=== PATIENT | female | born 1935 | race Two or more races ===

== ENCOUNTER 2016-12-21 18:15 | Emergency (ER) | payer OTHER ==
[~2016-12-21] VITALS: Ht 167.6 cm; Wt 77.1 kg
--- NOTE | 2016-12-21 18:35 | NUR ---
[id number] FROM HOME: GLF, NEAR SYNCOPE PER PATIENT. LEFT HIP INJURY. PATIENT A/OX 4. BREATHING EVEN AND UNLABORED. NO SOB. VITALS STABLE. SAFETY AND COMFORT MEASURES IN PLACE. AWAITING MD ORDERS.
[2016-12-21 18:47] LABS: BASOPHILS # (AUTO) 0.2 /CMM (0.0-0.2); BASOPHILS % (AUTO) 0.8 % (0.0-2.0); EOSINOPHILS # (AUTO) 0.1 /CMM (0.0-0.7); EOSINOPHILS % (AUTO) 0.5 % (0.0-6.0); HEMATOCRIT 41 % (33-45); HEMOGLOBIN 13.8 g/dL (11.5-14.8); LYMPHOCYTES # (AUTO) 3.4 /CMM (0.8-4.8); LYMPHOCYTES % (AUTO) 11.7 % (20.0-44.0); MEAN CORPUSCULAR HEMOGLOBIN 30 PG (26.0-33.0); MEAN CORPUSCULAR HGB CONC 33 g/dl (31.0-36.0); MEAN CORPUSCULAR VOLUME 88 fL (82-100); MONOCYTES # (AUTO) 1.7 /CMM (0.1-1.30); MONOCYTES % (AUTO) 5.8 % (2.0-12.0); NEUTROPHILS # (AUTO) 23.6 /CMM (1.8-8.9); NEUTROPHILS % (AUTO) 81.2 % (43.0-81.0); PLATELET COUNT (AUTO) 398 /CMM (150-450); RDW COEFFICIENT OF VARIATION 13.3 (11.5-15.0); RED BLOOD CELL COUNT(AUTO) 4.69 MIL/uL (4.0-5.2)
[2016-12-21] MEDS ORDERED: ONDANSETRON HCL/PF 4 MG/2 ML VIAL ONE ×2 (18:56→21:58)
[2016-12-21] MEDS ORDERED: MORPHINE SULFATE INJ 4 MG/ML DISP.SYRIN ONE ×4 (18:56→21:58)
[2016-12-21] MEDS ORDERED: MORPHINE SULFATE INJ 2 MG/ML DISP.SYRIN IV ONE ×4 (19:00→22:00)
[2016-12-21] MEDS ORDERED: ONDANSETRON HCL/PF - ER 4 MG/2 ML VIAL IV ONE ×2 (19:00→22:00)
--- NOTE | 2016-12-21 19:02 | NUR ---
PATIENT MEDICATED PER MD ORDERS.
[2016-12-21 19:03] LABS: INR 0.91 (0.87-1.13); PROTHROMBIN TIME 9.5 SECS (9.5-12.7)
[2016-12-21 19:05] LABS: ALANINE AMINOTRANSFERASE 24 U/L (12-78); ALBUMIN 3.9 g/dL (3.4-5.0); ALKALINE PHOSPHATASE 77 U/L (46-116); ASPARTATE AMINOTRANSFERASE 17 U/L (15-37); BILIRUBIN,DIRECT 0.1 mg/dL (0.0-0.2); BILIRUBIN,TOTAL 0.3 mg/dL (0.2-1.0); CALCIUM, SERUM 8.8 mg/dL (8.5-10.1); CARBON DIOXIDE 30 mmol/L (21-32); CHLORIDE 91 mmol/L (98-107); GLUCOSE 143 mg/dL (74-106); POTASSIUM 3.1 mmol/L (3.5-5.1); SODIUM SERUM 130 mmol/L (136-145); TOTAL PROTEIN, SERUM 6.8 g/dL (6.4-8.2); UREA NITROGEN, BLOOD 15 mg/dL (7-18)
[2016-12-21 19:06] LABS: TROPONIN I < 0.017 ng/mL (0.00-0.056)
--- NOTE | 2016-12-21 19:37 | NUR ---
SECOND DOSE OF MORPHINE ADMINISTERED PRIOR TO XRAYS.
--- NOTE | 2016-12-21 19:37 | NUR ---
REPORT GIVEN TO JANICE YBARRA FOR KULDEEP.
--- NOTE | 2016-12-21 20:12 | NUR ---
RADIOLOGY AT BED SIDE FOR X RAY
[2016-12-21] MEDS ORDERED: IV NS 0.9% 1,000 ML BAG IV ONE (20:30)
--- NOTE | 2016-12-21 20:35 | NUR ---
CALLED [facility] SPOKE WITH CALOS, EXPECTING A CALL BACK FROM A [facility]
--- NOTE | 2016-12-21 20:43 | NUR ---
MEDICATED PT ORDERED.
--- NOTE | 2016-12-21 20:48 | NUR ---
[place] DR PELAYO CALLED , ON THE PHONE WITH DR HUFF.
--- NOTE | 2016-12-21 21:25 | NUR ---
[facility] CALLED WITH TRASNPORTATION INFO. PATIENT WILL BE TRANSPORTED TO [facility]. ACCEPTING DR PULIDO. NUMBER TO GIVE REPORT ETA [phone] ALS
--- NOTE | 2016-12-21 21:36 | NUR ---
REPORT GIVEN TO MAGDALENA YBARRA
[2016-12-21 21:43] VITALS: BP 180/88
--- NOTE | 2016-12-21 22:35 | NUR ---
REPORT GIVEN TO EMT FOR TRANSPORT
== END 2016-12-21 22:38 | disposition short-term general hospital (02) ==
LOC: ER 18:18
DX: S72.002A Fracture of unspecified part of neck of left femur, initial encounter for closed fracture (principal); R55 Syncope and collapse; D72.829 Elevated white blood cell count, unspecified; I10 Essential (primary) hypertension; E78.5 Hyperlipidemia, unspecified; J44.9 Chronic obstructive pulmonary disease, unspecified; F32.9 Major depressive disorder, single episode, unspecified; Z98.890 Other specified postprocedural states; Z88.2 Allergy status to sulfonamides; W18.39XA Other fall on same level, initial encounter; Y93.89 Activity, other specified; Y92.89 Other specified places as the place of occurrence of the external cause; Y99.8 Other external cause status
CPT/HCPCS: 36415; 71010; 73503; 80048; 80076; 84484; 85025; 85730; 86850; 93005; 96361; 96374; 96375; 96376; 99285; A4606; J2270 ×4; J2405 ×4; J7030; 73502; Z7610

== ENCOUNTER 2020-03-27 10:00 | Inpatient (IN) | payer MEDICARE, OTHER ==
[~2020-03-27] VITALS: Ht 165.1 cm; Wt 76.7 kg
--- NOTE | 2020-03-27 10:02 | NUR ---
[id number] FROM HOME FOR WORSENING SOB, WEAKNESS. ON ALBUTEROL BANQUET MANAGER. BG 167 BANQUET MANAGER. TO ER BED 8, HOOKED TO MILL HAND, BP CUFF ANF POX. PATIENT NOTED ON ATRIL FIBRILLATION. CHANGED TO HOSP GOWN. NOTED LH 20G IV PERIPHERAL LINE. DR MORRIS AT BEDSIDE
[2020-03-27] MEDS ORDERED: FUROSEMIDE 40 MG/4 ML VIAL ONE (10:15)
[2020-03-27] MEDS ORDERED: FUROSEMIDE 40 MG/4 ML VIAL IV ONE (10:30)
[2020-03-27 10:35] LABS: BASOPHILS # (AUTO) 0.2 /CMM (0.0-0.2); BASOPHILS % (AUTO) 0.7 % (0.0-2.0); HEMATOCRIT 32 % (33-45); HEMOGLOBIN 9.9 g/dL (11.5-14.8); LYMPHOCYTES # (AUTO) 8.4 /CMM (0.8-4.8); LYMPHOCYTES % (AUTO) 35.5 % (20.0-44.0); MEAN CORPUSCULAR HGB CONC 31 g/dl (31.0-36.0); MEAN CORPUSCULAR VOLUME 85 fL (82-100); MONOCYTES # (AUTO) 1.3 /CMM (0.1-1.30); MONOCYTES % (AUTO) 5.3 % (2.0-12.0); NEUTROPHILS # (AUTO) 13.8 /CMM (1.8-8.9); NEUTROPHILS % (AUTO) 58.5 % (43.0-81.0); PLATELET COUNT (AUTO) 677 /CMM (150-450); RED BLOOD CELL COUNT(AUTO) 3.78 MIL/uL (4.0-5.2); WHITE BLOOD COUNT (AUTO) 23.7 K/uL (4.3-11.0)
--- NOTE | 2020-03-27 10:40 | NUR ---
rapid and pcr covid swab done and sent to lab
--- NOTE | 2020-03-27 10:45 | NUR ---
MOVE SHEET SUBMITTED.
[2020-03-27 11:05] LABS: BILIRUBIN,DIRECT 0.2 mg/dL (0.0-0.2); BILIRUBIN,TOTAL 0.5 mg/dL (0.2-1.0); CALCIUM, SERUM 9.2 mg/dL (8.5-10.1); CREATININE 1.2 mg/dL (0.6-1.3); POTASSIUM 4.6 mmol/L (3.5-5.1); TOTAL PROTEIN, SERUM 6.8 g/dL (6.4-8.2)
[2020-03-27] MEDS ORDERED: MONT10TA22 PO (11:23)
[2020-03-27] MEDS ORDERED: FLUT1DIS5 IH (11:23)
[2020-03-27] MEDS ORDERED: POTA20TA83 PO (11:23)
[2020-03-27] MEDS ORDERED: FURO-144 PO (11:23)
[2020-03-27] MEDS ORDERED: LORA-259 PO (11:23)
[2020-03-27] MEDS ORDERED: LEVO112T39 PO (11:23)
[2020-03-27] MEDS ORDERED: DILT-32 PO (11:23)
[2020-03-27] MEDS ORDERED: ATOR10TA PO (11:23)
[2020-03-27] MEDS ORDERED: IPRA3AMP23 IH (11:23)
[2020-03-27] MEDS ORDERED: DABI110C PO (11:23)
--- NOTE | 2020-03-27 11:41 | NUR ---
CALL FROM LAB FOR NEGATIVE RAPID COVID.
--- NOTE | 2020-03-27 12:10 | NUR ---
CALLED [facility]. PER DIRECTOR CASE PATIENT IS CURRENTLY NOT AN ACTIVE MEMBER.
--- NOTE | 2020-03-27 12:23 | NUR ---
[facility] CALLED CLOUD PHYSICIST PAGED.
[2020-03-27] MEDS ORDERED: DILTIAZEM HCL 25 MG IV ONE (12:57)
[2020-03-27] MEDS ORDERED: DABIGATRAN ETEXILATE MESYLATE 150 MG CAPSULE PO SCH (13:00)
[2020-03-27] MEDS ORDERED: DILTIAZEM HCL 50 MG IV IV ONE (13:00)
[2020-03-27] MEDS ORDERED: ACETAMINOPHEN 325 MG TABLET PO PRN (13:30)
[2020-03-27] MEDS ORDERED: Z GUARD REMEDY 2 OZ OINT TP PRN (13:30)
[2020-03-27] MEDS ORDERED: ONDANSETRON HCL/PF 4 MG/2 ML VIAL IVP PRN (13:30)
[2020-03-27] MEDS ORDERED: ZOLPIDEM TARTRATE 5 MG TABLET PO PRN (13:30)
--- NOTE | 2020-03-27 14:27 | NUR ---
[facility] BED 118-1
--- NOTE | 2020-03-27 14:33 | NUR ---
REPORT GIVEN TO ALEXANDRO YBARRA OF [facility]
[2020-03-27] MEDS ORDERED: DILTIAZEM HCL CD 240 MG PO SCH (14:45)
[2020-03-27] MEDS ORDERED: Medication Not On Formulary EA (Ipratropium/Albuterol Sulfate (Duoneb 2.5-0.5 Mg/3 Ml So IH PRN (15:00)
--- NOTE | 2020-03-27 15:00 | NUR ---
RN NOTES PATIENT REPORT RECEIVED FROM EVELIA HAYDEN RN, BEDSIDE ENDORSEMENT DONE.
[2020-03-27] MEDS ORDERED: ALBUTEROL FS 2.5 MG/3 ML VIAL.NEB NEB PRN (15:30)
[2020-03-27] MEDS ORDERED: IPRATROPIUM NEB FS 0.5 MG/2.5 ML AMPUL.NEB NEB PRN (15:30)
[2020-03-27 15:45] VITALS: BP 118/67
--- NOTE | 2020-03-27 16:00 | NUR ---
RN ADMITTING NOTES ADMITTED PATIENT FROM ER W/ CC OF WORSENING SOB AND WEAKNESS, DX OF AFIB W/ RVR. PATIENT WAS BROUGHT VIA GURNEY, SLEEPING, BUT ABLE TO BE AWAKENED. ON O2 AT 5-6LPM VIA NC, SATURATING BETWEEN 95-99%, NO RESPIRATORY DISTRESS AT THE MOMENT. IV LINE ON LEFT HAND #20 INTACT AND PATENT. SKIN ASSESSMENT DONE AND PHOTOS TAKEN. SWAB SPECIMEN OBTAINED FOR MRSA SURVEILLANCE; CABALLERO CATHETER FR16 INSERTED PER MD ORDER, ABLE TO DRAIN URINE OF YELLOW COLOR W/O SEDIMENTS, OUTPUT OF 350CC OBTAINED. URINE SAMPLE OBTAINED AND SENT TO LAB. PATIENT CURRENTLY SLEEPING AT THIS TIME. SAFETY PRECAUTIONS IN PLACE: BED LOCKED AND ON LOWEST POSITION, SR UP X3, CALL LIGHT DEMONSTRATED TO PATIENT FOR USE IN CASE IN NEED OF ASSISTANCE, PLACED W/IN REACH. WILL CONTINUE TO MONITOR.
[2020-03-27] MEDS: ATORVASTATIN 10 MG TABLET PO SCH (17:55)
[2020-03-27] MEDS: FUROSEMIDE 40 MG/4 ML VIAL IV SCH ×2 (17:55→23:25)
[2020-03-27] MEDS: MONTELUKAST SODIUM (10MG) 10 MG TABLET PO SCH (17:55)
[2020-03-27 18:59] LABS: BILIRUBIN,URINE NEGATIVE (NEGATIVE); COLOR,URINE YELLOW (YELLOW); LEUKOCYTE ESTERASE ,URINE NEGATIVE (NEGATIVE); NITRITE, URINE NEGATIVE (NEGATIVE); PROTEIN,URINE 100 mg/dl (NEGATIVE); UGLUCOSE NEGATIVE (NEGATIVE); UROBILINOGEN,URINE 0.2 EU/dL (0.2)
--- NOTE | 2020-03-27 19:00 | NUR ---
RN OPENING NOTE RECEIVED PATIENT IN BED RESTING EYE CLOSED SLEEPING ON 5L OXYGEN VIA NASAL CANNULA O2:94-96% ON TASHA MONITORING,HR 120 A-FIB,IV SITE IS ON LEFT HAND INTACT PATENT, CABALLERO CATHETER IN PLACE URINE DRAINING YELLOW AND CLEAR,BED ALARM IS ON,BED IN LOW POSITON AND LOCKED,SAFETY MEASURE IMPLEMENT CONTINUE TO MONITOR
--- NOTE | 2020-03-27 19:05 | NUR ---
RN NOTES PATIENT CURRENTLY SLEEPING; CABALLERO CATH STILL INTACT AND DRAINING URINE OF YELLOW COLORATION. NO RESPIRATORY DISTRESS NOTED. SAFETY PRECAUTIONS MAINTAINED. WILL ENDORSE TO LATEX RIBBON MACHINE OPERATOR RN FOR KULDEEP.
[2020-03-27 19:45] LABS: BACTERIA,URINE RARE /HPF (None Seen); HYALINE CASTS, URINE Few /LPF (None Seen); RBC,URINE 0-2 /HPF (0-2); SQUAMOUS EPITHELIAL CELL,UR 0-2 /HPF (None Seen); WBC,URINE 0-2 /HPF (0-3)
[2020-03-27 20:00] VITALS: BP 147/84
[2020-03-27] MEDS ORDERED: FLUTICASONE/VILANTEROL 1 EACH BLST.W.DEV IH SCH (21:00)
[2020-03-27] MEDS ORDERED: ENOXAPARIN SODIUM 40 MG/0.4 ML DISP.SYRIN SQ SCH (21:00)
[2020-03-28] VITALS (43 sets, daily range): BP systolic 88–157; BP diastolic 37–99
--- NOTE | 2020-03-28 00:45 | NUR ---
0045 FAX MACHINE REPAIRER DALTON MADE AWARE OF PATIENT'S UNCONTROLLED A-FIB RATE 130S WITH ORDER TO GIVE CARDIZEM 10MG SLOW IVP ONCE. ORDER NOTED AND CARRIED OUT.
[2020-03-28] MEDS ORDERED: DILTIAZEM HCL 25 MG IV IV ONE (01:30)
--- NOTE | 2020-03-28 05:00 | NUR ---
RN NOTE NOTICED PATIENT DESATURATION TO 77% ON 6L NASAL CANNULA, CHANGED TO NON-REBREATHER MASK ON 15L CALLED ASSISTANT PROPERTY MANAGER DMITERY MADE AWARE,WITH NEW ORDER TRY TO TITRATE OXYGEN,NOTED AND CARRIED OUT.
[2020-03-28] MEDS: FUROSEMIDE 40 MG/4 ML VIAL IV SCH (05:02)
--- NOTE | 2020-03-28 06:22 | NUR ---
RN NOTE NOTICED PATIENT HR IS 150 AND ABOVE CALLED LABORATORY TECHNOLOGIST DMITERY WITH NO NEW ORDER AT THIS TIME.
[2020-03-28 06:38] LABS: BASOPHILS # (AUTO) 0.1 /CMM (0.0-0.2); BASOPHILS % (AUTO) 0.3 % (0.0-2.0); EOSINOPHILS % (AUTO) 0.1 % (0.0-6.0); HEMATOCRIT 30 % (33-45); HEMOGLOBIN 9.4 g/dL (11.5-14.8); LYMPHOCYTES # (AUTO) 7.8 /CMM (0.8-4.8); LYMPHOCYTES % (AUTO) 37.4 % (20.0-44.0); MEAN CORPUSCULAR HGB CONC 31 g/dl (31.0-36.0); MEAN CORPUSCULAR VOLUME 84 fL (82-100); MONOCYTES # (AUTO) 1.4 /CMM (0.1-1.30); MONOCYTES % (AUTO) 6.7 % (2.0-12.0); NEUTROPHILS # (AUTO) 11.6 /CMM (1.8-8.9); NEUTROPHILS % (AUTO) 55.5 % (43.0-81.0); PLATELET COUNT (AUTO) 606 /CMM (150-450); RED BLOOD CELL COUNT(AUTO) 3.62 MIL/uL (4.0-5.2); WHITE BLOOD COUNT (AUTO) 20.9 K/uL (4.3-11.0)
--- NOTE | 2020-03-28 06:48 | NUR ---
RN CLOSING NOTE PATIENT REMAINS ON ALERT ORIENTED X2 VERBALLY RESPONSIVE ON NON REBREATHER MASK 15L OXYGEN O2:99% HR ABOVE 140 A-FIB NON CONTROL ALL DUE MEDS GIVEN MD ORDERED,IV SITE IS ON RIGHT HAND INTACT PATENT,PATIENT HAS MIDLINE ORDER FOR MORNING SHIFT,KEPT CLEAN AND DRY ALL THE TIME,BED IN LOW POSITION AND LOCKED,SAFETY MEASURE IMPLEMENTED,ENDORSE NEXT COMING SHIFT FOR CONTINUATION OF CARE.
[2020-03-28 07:19] LABS: CALCIUM, SERUM 9.4 mg/dL (8.5-10.1); CREATININE 1.3 mg/dL (0.6-1.3); PHOSPHORUS 5.5 mg/dL (2.5-4.9); POTASSIUM 5.1 mmol/L (3.5-5.1)
--- NOTE | 2020-03-28 07:27 | NUR ---
montlr shows uncontrolled a fib 145-150 patient has a NRB mask 15l with with 98% pulse ox julien PORTILLO was notified and stat chest x ray and ABG orders obtained ABG results given to Trini and as well and orders obtained and carried out
--- NOTE | 2020-03-28 07:35 | NUR ---
SECOND CUTTER OPENING NOTES RECEIVED PATIENT IN BED, AWAKE, A/O X1 WITH CONFUSION. PATIENT TRYING TO GET OUT OF BED AND REMOVE MASK ON; HOWEVER ON SOFT WRIST RESTRAINS. TELE MONITOR WITH A READING OF A-FIB NON CONTROL; MD AWARE. R HAND IV ACCESS PRESENT. NO S/S OF PAIN SUCH FACIAL GRIMACING OR MOANING. SAFETY PRECAUTIONS IN PLACE; BED IN LOW POSITION AND LOCKED, RAILS UP X3, CALL LIGHT WITHIN REACH. WILL CONTINUE TO MONITOR PATIENT.
--- NOTE | 2020-03-28 08:30 | NUR ---
LOAN ASSOCIATE NOTES PATIENT DESATURATING AND RT HERE TO CHECK ON PATIENT. PATIENT AWAKE BUT HAS SOB. ABG ORDERED.
[2020-03-28 08:38] LABS: ABG BASE EXCESS 8.7 mmol/L; ABG OXYGEN SATURATION 98.8 % (92.0-98.5); ABG PCO2 97.9 mmHg (35.0-45.0); ABG PH 7.218 (7.350-7.450); ABG PO2 147.1 mmHg (75.0-100.0); COHb 0.3 % (0.5-1.5); MetHb 0.3 % (0.0-1.5); O2Hb 98.2 % (94.0-97.0); SITE, ABG Right Radial; VENT MODE, BG NON REBREATHER
[2020-03-28] MEDS ORDERED: DILTIAZEM HCL CD 120 MG PO SCH (09:00)
[2020-03-28] MEDS ORDERED: DILTIAZEM HCL CD 240 MG PO SCH (09:00)
[2020-03-28] MEDS ORDERED: BUMETANIDE INJ 8 MG in IV NS 0.9% 48 ML IV ONE (09:00)
[2020-03-28] MEDS ORDERED: POTASSIUM CHLORIDE 20 MEQ TAB.PRT.SR PO SCH (09:00)
[2020-03-28] MEDS: LEVOTHYROXINE SODIUM 112 MCG TABLET PO SCH (09:11)
--- NOTE | 2020-03-28 09:30 | NUR ---
MANAGER MARKET INTELLIGENCE NOTES PER RT ABG DID NOT LOOK GOOD. DR ZENG ASSESSED PATIENT AND OK TO TRANSFER TO ICU. WAITING FOR THE BED. PATIENT ON 10 L NOW PER REGULAR MASK.
--- NOTE | 2020-03-28 09:49 | NUR ---
ASSISTANT CHIEF TRAIN DISPATCHER NOTES PATIENT TRANSFERED TO ICU CARE. REPORT GIVEN TO ICU NURSETOMMY
[2020-03-28] MEDS ORDERED: IPRATROPIUM BROMIDE 14 GM INHALER (or 12.9 GM) IH SCH (10:00)
[2020-03-28] MEDS ORDERED: ENOXAPARIN SODIUM 80 MG/0.8 ML DISP.SYRIN SQ SCH (10:00)
[2020-03-28] MEDS ORDERED: DABIGATRAN ETEXILATE MESYLATE 75 MG CAPSULE PO SCH (10:00)
--- NOTE | 2020-03-28 10:11 | NUR ---
jas blue called and intubated by Dr.Tim stevens and transferred to ICU Room 255 per bed accompanied by resp and primary nurse all reports given to Navid COLLISION TECHNICIAN by primary nurse TOMMY
--- NOTE | 2020-03-28 10:45 | NUR ---
RACK CLEANER NOTE PT RECEIVED FROM [facility], TOMMY YBARRA GAVE REPORT, FOLLOWING CODE BLUE (1005) AND SUCCESSFUL INTUBATION. WILL BEGIN PT ON DIPRIVAN DRIP PER PROTOCOL, SOFT BILATERAL WRIST RESTRAINTS APPLIED FOR PT SAFETY. PT IN A-FIB WITH PVCs HR IN 140s. PT HAS RT HAND IV ACCESS THAT IS NOT INTACT, WILL D/C AND START NEW IV ACCESS SHORTLY. PT CABALLERO CATH DRAINING TO GRAVITY, HEMATURIA NOTED. ALL PT SAFETY PRECAUTIONS IN PLACE. WILL CONTINUE TO MONITOR.
--- NOTE | 2020-03-28 10:50 | NUR ---
AWS SOLUTION ARCHITECT OVERFLOW PATIENT IN BED, KRISHAN NAIR IN THE ROOM ASSESSING THE PATIENT, CALLED CODE BLUE AT 1005 BECAUSE SATURATION WAS DROPPING AND FELT NO PULSE. RN WENT TO THE ROOM, COMPRESSIONS STARTED, DR EPSTEIN ARRIVED, RT PRESENT, PHARMACY PRESENT, MULTIPLE STAFF NURSES PRESENT AND SWITCHING OUT COMPRESSIONS, NO MEDICATIONS GIVEN, PATIENT INTUBATED. O2 SAT IS 100%. MORE DETAILED CODE INFORMATION DOCUMENTED IN THE CODE SHEET DURING THE CODE. PATIENT STABILIZED AND PREPARED TO BE TRANSFERRED TO ICU. PATIENT TRANSFERRED WITH RT, ICU CHARGE NURSE, STAFF NURSE SHAILESH, AND MAIN STAFF NURSE ARY. TRANSFERRED IN BED WHILE RT BAGS THE PATIENT AND IS ON CONTINUOUS TELE MONITOR. ONCE IN ICU, PATIENT CONNECTED TO CONTINUOUS MONITORING, IS BACK ON VENTILATOR, O2 SAT 100%, NO S/S OF DISTRESS. REPORT GIVEN THE RN ISSA JUSTIN. Addendum: 03/28/20 at 1438 by ARY OROSCO RN DR SARA THOMAS INTUBATED THE PATIENT, NOT LUCIAN.
[2020-03-28] MEDS ORDERED: DABIGATRAN ETEXILATE MESYLATE 150 MG CAPSULE PO SCH (11:00)
[2020-03-28] MEDS ORDERED: ALBUTEROL FS 2.5 MG/3 ML VIAL.NEB NEB PRN (11:00)
[2020-03-28] MEDS ORDERED: FLUTICASONE/VILANTEROL 1 EACH BLST.W.DEV IH SCH (11:00)
[2020-03-28] MEDS ORDERED: PROPOFOL 10MG/ML 50ML 50 ML IV PRN (11:00)
[2020-03-28] MEDS: ENOXAPARIN SODIUM 80 MG/0.8 ML DISP.SYRIN SQ SCH ×2 (11:30→14:18)
[2020-03-28] MEDS: PROPOFOL 10MG/ML 50ML 50 ML IV PRN ×9 (11:30→22:42)
--- NOTE | 2020-03-28 11:50 | NUR ---
LOAD BUILDER OVERFLOW SOON, THE CHARGE NURSE HAD THE PATIENT NURSE CASEYHUY ENDORSE CARE NOW TO ARY Fish DIFFERENT RN, PATIENT IS IN BED RESTING, RESPIRATORY THERAPIST IN THE ROOM SWITCHING HER OXYGEN DELIVERY TO HIGHLOW 40L 35% O2. PATIENT SATURATION IS 90%. PLAN IS TO TRANSFER THE PATIENT TO ICU. COLLECTING PATIENT CHART AND MEDICATION NOW TO TRANSFER HER SOON POSSIBLE. Addendum: 03/28/20 at 1437 by ARY OROSCO RN 0950, NOT 1150.
[2020-03-28] MEDS ORDERED: PHENYLEPHRINE 50 MG in IV NS 0.9% 245 ML IV PRN (12:00)
[2020-03-28] MEDS ORDERED: DIGOXIN INJ 0.5 MG/2 ML AMPUL IV SCH (12:00)
[2020-03-28] MEDS: methylPREDNISolone SOD SUCC 40 MG/ML VIAL IV SCH ×2 (12:04→17:53)
[2020-03-28 12:55] LABS: ABG BASE EXCESS 9.8 mmol/L; ABG PCO2 31.8 mmHg (35.0-45.0); ABG PH 7.615 (7.350-7.450); ABG PO2 585.6 mmHg (75.0-100.0); AaDO2 95.6 mmHg; COHb 0.3 % (0.5-1.5); O2Hb 99.7 % (94.0-97.0); SITE, ABG Left Radial; VENT MODE, BG ac 24 500+5 100%
[2020-03-28] MEDS: AMIODARONE 150 MG in IV D5W 100 ML IV ONE ×2 (13:26→17:32)
[2020-03-28] MEDS: IPRATROPIUM NEB FS 0.5 MG/2.5 ML AMPUL.NEB NEB SCH ×2 (13:30→19:40)
[2020-03-28] MEDS: AMIODARONE 450 MG in IV D5W 250 ML IV PRN ×2 (13:32→21:56)
[2020-03-28 13:59] LABS: BASOPHILS # (AUTO) 0.1 /CMM (0.0-0.2); BASOPHILS % (AUTO) 0.4 % (0.0-2.0); HEMATOCRIT 29 % (33-45); LYMPHOCYTES # (AUTO) 5.7 /CMM (0.8-4.8); LYMPHOCYTES % (AUTO) 23.6 % (20.0-44.0); MEAN CORPUSCULAR HGB CONC 31 g/dl (31.0-36.0); MEAN CORPUSCULAR VOLUME 84 fL (82-100); MONOCYTES # (AUTO) 1.5 /CMM (0.1-1.30); MONOCYTES % (AUTO) 6.4 % (2.0-12.0); NEUTROPHILS # (AUTO) 16.7 /CMM (1.8-8.9); NEUTROPHILS % (AUTO) 69.6 % (43.0-81.0); PLATELET COUNT (AUTO) 514 /CMM (150-450); RED BLOOD CELL COUNT(AUTO) 3.47 MIL/uL (4.0-5.2)
[2020-03-28 14:17] LABS: ALANINE AMINOTRANSFERASE 58 U/L (12-78); ALBUMIN 2.7 g/dL (3.4-5.0); ALKALINE PHOSPHATASE 99 U/L (46-116); ASPARTATE AMINOTRANSFERASE 64 U/L (15-37); BILIRUBIN,TOTAL 0.6 mg/dL (0.2-1.0); CALCIUM, SERUM 9.3 mg/dL (8.5-10.1); CARBON DIOXIDE 36 mmol/L (21-32); CHLORIDE 92 mmol/L (98-107); CREATININE 1.4 mg/dL (0.6-1.3); GLUCOSE 120 mg/dL (74-106); POTASSIUM 5.2 mmol/L (3.5-5.1); SODIUM SERUM 135 mmol/L (136-145); TOTAL PROTEIN, SERUM 5.8 g/dL (6.4-8.2); UREA NITROGEN, BLOOD 27 mg/dL (7-18)
--- NOTE | 2020-03-28 14:21 | NUR ---
RN NOTE PER KRISHAN FOREST PATHOLOGY ASSOCIATE PROFESSOR, OK TO GIVE LOVENOX 80MG. AWARE OF HEMATURIA THAT IS CLEARING, PT IS IN A-FIB
[2020-03-28] MEDS ORDERED: DEXTROSE 50%-WATER 50 ML DISP.SYRIN IV PRN (17:00)
[2020-03-28] MEDS: BLOOD SUGAR DIAGNOSTIC 1 EACH STRIP IN SCH ×2 (17:45→21:08)
[2020-03-28] MEDS: MONTELUKAST SODIUM (10MG) 10 MG TABLET PO SCH (17:53)
[2020-03-28] MEDS: ATORVASTATIN 10 MG TABLET PO SCH (17:53)
[2020-03-28 18:10] LABS: ABG BASE EXCESS 11.4 mmol/L; ABG OXYGEN SATURATION 97.2 % (92.0-98.5); ABG PCO2 37.4 mmHg (35.0-45.0); ABG PH 7.579 (7.350-7.450); ABG PO2 79.7 mmHg (75.0-100.0); AaDO2 234.7 mmHg; COHb 0.4 % (0.5-1.5); MetHb 0.3 % (0.0-1.5); O2Hb 96.5 % (94.0-97.0); SITE, ABG Right Radial; VENT MODE, BG AC 16 450 50% +5
--- NOTE | 2020-03-28 19:00 | NUR ---
ART PSYCHOTHERAPIST CLOSING NOTE PT IN STABLE CONDITION. ON VENT SETTINGS ORDERED, NO SIGNS OF RESP DISTRESS, SPO2 0F 97%. P TIN A-FIB WITH RVR IN THE 100s. PT NEW ACCESS OF IRVIN AND LT WRIST BOTH INFUSING WELL AND ARE PATENT. DIPRIVAN AND AMIODARONE. ALL PT SAFETY PRECAUTIONS IN PLACE. WILL ENDORSE KULDEEP TO ONCOMING NURSE. PT TO TRANSFER TO [facility] TOMORROW
--- NOTE | 2020-03-28 19:30 | NUR ---
LEAN ENGINEER RCD PT DX AFIB, S/P INTUABATION TODAY. AFIB ON MONITOR ON AMIODARONE DRIP CHANGED TO 0.5 MG. ON PROPOFOL AT [address] FOR SAFETY[address] CABALLERO CATH W/HEMATURIA NOTED. OPEN SCABS NOTED ON BUTTOCKS; APPLIED MEPILEX. PT INTUBATED; RENDERED ORAL CARE; MIN SECRETIONS.
[2020-03-28] MEDS ORDERED: ZOLPIDEM TARTRATE 5 MG TABLET PO PRN (22:00)
[2020-03-28 23:59] LABS: ABG BASE EXCESS 12.1 mmol/L; ABG OXYGEN SATURATION 97.9 % (92.0-98.5); ABG PCO2 40.1 mmHg (35.0-45.0); ABG PH 7.563 (7.350-7.450); ABG PO2 95.4 mmHg (75.0-100.0); COHb 0.3 % (0.5-1.5); MetHb 0.1 % (0.0-1.5); O2Hb 97.5 % (94.0-97.0); PEEP,BG 5 cm H2O; SITE, ABG Right Radial
[2020-03-29] VITALS (14 sets, daily range): BP systolic 125–171; BP diastolic 59–111
--- NOTE | 2020-03-29 | NUR ---
ABG DONE. NOTIFIED RN WITH THE RESULT.
[2020-03-29] MEDS: BLOOD SUGAR DIAGNOSTIC 1 EACH STRIP IN SCH ×4 (00:21→12:17)
[2020-03-29] MEDS: IPRATROPIUM NEB FS 0.5 MG/2.5 ML AMPUL.NEB NEB SCH ×2 (01:06→07:58)
[2020-03-29] MEDS: PROPOFOL 10MG/ML 50ML 50 ML IV PRN ×5 (01:26→12:06)
[2020-03-29] MEDS: methylPREDNISolone SOD SUCC 40 MG/ML VIAL IV SCH ×2 (02:09→10:57)
[2020-03-29 04:19] LABS: BASOPHILS # (AUTO) 0.1 /CMM (0.0-0.2); BASOPHILS % (AUTO) 0.5 % (0.0-2.0); EOSINOPHILS % (AUTO) 0.8 % (0.0-6.0); HEMATOCRIT 28 % (33-45); HEMOGLOBIN 9.2 g/dL (11.5-14.8); LYMPHOCYTES # (AUTO) 5.9 /CMM (0.8-4.8); MEAN CORPUSCULAR HGB CONC 33 g/dl (31.0-36.0); MEAN CORPUSCULAR VOLUME 82 fL (82-100); MONOCYTES # (AUTO) 0.6 /CMM (0.1-1.30); MONOCYTES % (AUTO) 2.5 % (2.0-12.0); NEUTROPHILS # (AUTO) 15.8 /CMM (1.8-8.9); NEUTROPHILS % (AUTO) 70.2 % (43.0-81.0); PLATELET COUNT (AUTO) 475 /CMM (150-450); RED BLOOD CELL COUNT(AUTO) 3.43 MIL/uL (4.0-5.2); WHITE BLOOD COUNT (AUTO) 22.5 K/uL (4.3-11.0)
[2020-03-29 04:38] LABS: CALCIUM, SERUM 8.8 mg/dL (8.5-10.1); CARBON DIOXIDE 32 mmol/L (21-32); CHLORIDE 90 mmol/L (98-107); CREATININE 1.5 mg/dL (0.6-1.3); GLUCOSE 128 mg/dL (74-106); PHOSPHORUS 3.8 mg/dL (2.5-4.9); POTASSIUM 4.3 mmol/L (3.5-5.1); SODIUM SERUM 131 mmol/L (136-145); UREA NITROGEN, BLOOD 32 mg/dL (7-18)
--- NOTE | 2020-03-29 07:15 | NUR ---
SANITARIAN PT REMAINED ON DIPRIVAN AT 40 MCG ON AMIODARONE DRIP. ADEQUATE URINE OUTPUT. PLAN TO TRANSFER TO [facility] PER FAMILY REQUEST.
[2020-03-29] MEDS: LEVOTHYROXINE SODIUM 112 MCG TABLET PO SCH (08:01)
--- NOTE | 2020-03-29 08:05 | NUR ---
WOUND CARE CONSULT: REVIEWED CHART, NURSING DOCUMENTATION AND PHOTOS WHICH INDICATE SKIN GROWTHS TO BACK, PRESENT ON ADMISSION. PT BEING TRANSFERRED TO ANOTHER FACILITY AT THIS TIME.
[2020-03-29 09:47] LABS: ABG BASE EXCESS 9.5 mmol/L; ABG OXYGEN SATURATION 96.8 % (92.0-98.5); ABG PCO2 37.8 mmHg (35.0-45.0); ABG PH 7.553 (7.350-7.450); ABG PO2 79.7 mmHg (75.0-100.0); COHb 1.3 % (0.5-1.5); MetHb 0.3 % (0.0-1.5); O2Hb 95.3 % (94.0-97.0); PEEP,BG 5 cm H2O; SITE, ABG Right Radial; VT, ABG 450 mL
--- NOTE | 2020-03-29 09:55 | NUR ---
vent changes below per dr. white: ac 12 vt 400 ml Addendum: 03/29/20 at 0956 by CHELSY HEARN RT Amended: Links added.
[2020-03-29] MEDS ORDERED: DILTIAZEM HCL 30 MG TABLET NG SCH (12:00)
[2020-03-29] MEDS ORDERED: DIGOXIN ELIX UDC 0.25 MG/5 ML UDC GT SCH (13:00)
--- NOTE | 2020-03-29 13:35 | NUR ---
RN NOTE 0715: Received patient sedated. With ETT to vent, tolerated settings. AC 16 450 50 +5. Afib 90-110's on the monitor. On Diprivan @ 40mcg, will titrate as ordered. On Amio drip. 2 PIVs intact. TRAINING DEVELOPMENT DIRECTOR restraints on. Mishra cath intact. 0830: Spoke with Yuriy from [facility], gave ICU bed [id number], informed TAMIE Valles, she will call [facility]. 0900: Son and daughter at bedside, updated re: the transfer. 0945: ABG done, made Dr. Mai aware, with new vent changes noted, AC 12 Vt 400 40%. 1230: Done with Amio drip, administered Cardizem and Dig. 1240: Called [facility], spoke with Allie and report given, . Copied chart and gathered new CD images. 1300: Transferred by EMT via ACLS protocol with CCRN and Kimi READING ASSISTANT to accompany patient. Remained on Diprivan @ 50mcg, given extra bottle of Diprivan to Kimi PORTILLO. READING ASSISTANT informed son and daughter via phone, watch on left wrist still there.
== END 2020-03-29 13:04 | disposition short-term general hospital (02) | DRG 208 ==
LOC: ER 10:09 → TELE1 14:35 → TELE-TD 18:29 → ICU 03-28 09:54
PROVIDERS: ADMIT Nurse Practitioner Acute Care; ATTEND Nurse Practitioner Acute Care
PROC: 5A1945Z Respiratory Ventilation, 24-96 Consecutive Hours (ICD-10-PCS; principal; 2020-03-27)
PROC: 0BH18EZ Insertion of Endotracheal Airway into Trachea, Via Natural or Artificial Opening Endoscopic (ICD-10-PCS; 2020-03-27)
PROC: 5A12012 Performance of Cardiac Output, Single, Manual (ICD-10-PCS; 2020-03-28)
DX: J96.21 Acute and chronic respiratory failure with hypoxia (principal); N17.0 Acute kidney failure with tubular necrosis; I50.33 Acute on chronic diastolic (congestive) heart failure; G93.41 Metabolic encephalopathy; J44.1 Chronic obstructive pulmonary disease with (acute) exacerbation; I13.0 Hypertensive heart and chronic kidney disease with heart failure and stage 1 through stage 4 chronic kidney disease, or unspecified chronic kidney disease; E87.1 Hypo-osmolality and hyponatremia; E87.4 Mixed disorder of acid-base balance; J96.22 Acute and chronic respiratory failure with hypercapnia; I48.91 Unspecified atrial fibrillation; Z87.891 Personal history of nicotine dependence; E78.5 Hyperlipidemia, unspecified; Z86.73 Personal history of transient ischemic attack (TIA), and cerebral infarction without residual deficits; Z86.74 Personal history of sudden cardiac arrest; D72.829 Elevated white blood cell count, unspecified; N18.9 Chronic kidney disease, unspecified; Z20.822 Contact with and (suspected) exposure to COVID-19; Z99.81 Dependence on supplemental oxygen; Z96.649 Presence of unspecified artificial hip joint; Z88.2 Allergy status to sulfonamides
CPT/HCPCS: 31720; 36415; 36600; 71045-TC; 80048-TC; 80053-TC; 80061-TC; 80076-TC; 81001; 82728-TC; 82803-TC; 82962-TC; 83540-TC; 83605-TC; 83735-TC; 83880; 84100-TC; 84443-TC; 84484-TC; 85025-TC; 85378-TC; 85730-TC; 87040-TC; 87081-TC; 87086-TC; 93307-TC; 94002-TC; 94003-TC; 94760-TC; 94799-TC; C9803; G0378; J0282; J1160; J1650; J1940; J2370; J2920; J3490; J7030; J7050; J7060; U0003

== ENCOUNTER 2020-11-27 10:43 | Inpatient (IN) | payer OTHER ==
[~2020-11-27] VITALS: Ht 167.6 cm; Wt 71.2 kg
[~2020-11-27 10:43] MED LIST: ATOR10TA PO; DABI110C PO; DILT-32 PO; FLUT1DIS5 IH; FURO-144 PO; IPRA3AMP23 IH; LEVO112T39 PO; LORA-259 PO; MONT10TA22 PO; POTA20TA83 PO
--- NOTE | 2020-11-27 10:49 | NUR ---
To ER bed 6, [id number], from home, sent by PMD due to SOB, Hx copd, o2 sat at 100% with 2lpm, changed to a gown and attached to monitor
[2020-11-27] MEDS ORDERED: methylPREDNISolone SOD SUCC 125 MG/2ML VIAL ONE (10:55)
[2020-11-27] MEDS ORDERED: methylPREDNISolone SOD SUCC 125 MG/2ML VIAL IV ONE (11:00)
[2020-11-27] MEDS ORDERED: ALBUTEROL FS 2.5 MG/3 ML VIAL.NEB NEB ONE (11:00)
[2020-11-27] MEDS ORDERED: IPRATROPIUM NEB FS 0.5 MG/2.5 ML AMPUL.NEB NEB ONE (11:00)
--- NOTE | 2020-11-27 11:00 | NUR ---
SALINE LOCK ESTABLISHED, BLOOD DRAWN AND PICKED UP BY LAB
[2020-11-27] MEDS ORDERED: IPRATROPIUM NEB FS 0.5 MG/2.5 ML AMPUL.NEB ONE (11:04)
[2020-11-27] MEDS ORDERED: ALBUTEROL FS 2.5 MG/3 ML VIAL.NEB ONE (11:04)
--- NOTE | 2020-11-27 11:10 | NUR ---
RT AT BEDSIDE
--- NOTE | 2020-11-27 11:11 | NUR ---
FAMILY AT BEDSIDE
[2020-11-27 11:13] LABS: BASOPHILS % (AUTO) 0.1 % (0.0-2.0); EOSINOPHILS % (AUTO) 0.1 % (0.0-6.0); HEMATOCRIT 27 % (33-45); HEMOGLOBIN 8.7 g/dL (11.5-14.8); LYMPHOCYTES # (AUTO) 3.4 K/uL (0.8-4.8); LYMPHOCYTES % (AUTO) 10.2 % (20.0-44.0); MEAN CORPUSCULAR HGB CONC 33 g/dl (31.0-36.0); MEAN CORPUSCULAR VOLUME 88 fL (82-100); MONOCYTES # (AUTO) 2.9 K/uL (0.1-1.30); MONOCYTES % (AUTO) 8.6 % (2.0-12.0); NEUTROPHILS # (AUTO) 27.1 K/uL (1.8-8.9); PLATELET COUNT (AUTO) 270 K/uL (150-450); RED BLOOD CELL COUNT(AUTO) 3.02 MIL/uL (4.0-5.2)
[2020-11-27 11:15] LABS: WHITE BLOOD COUNT (AUTO) 33.4 K/uL (4.3-11.0)
--- NOTE | 2020-11-27 11:18 | NUR ---
trade embalmer at bedside
[2020-11-27 11:44] LABS: CALCIUM, SERUM 7.6 mg/dL (8.5-10.1); CARBON DIOXIDE 32 mmol/L (21-32); CHLORIDE 91 mmol/L (98-107); CREATININE 3.5 mg/dL (0.6-1.3); GLUCOSE 156 mg/dL (74-106); POTASSIUM 4.1 mmol/L (3.5-5.1); SODIUM SERUM 128 mmol/L (136-145); UREA NITROGEN, BLOOD 66 mg/dL (7-18)
[2020-11-27] MEDS ORDERED: MENTHOL/CETYLPYRD (CEPACOL) 1 LOZ LOZENGE ONE (11:47)
[2020-11-27] MEDS ORDERED: ASPI-1169 PO (11:57)
[2020-11-27] MEDS ORDERED: TIOT18CA3 IH (11:57)
[2020-11-27] MEDS ORDERED: MELA3TAB41 PO (11:57)
[2020-11-27] MEDS ORDERED: ACET-868 PO (11:57)
[2020-11-27] MEDS ORDERED: ALEN70TA3 PO (11:57)
[2020-11-27] MEDS ORDERED: IRBE150T28 PO (11:57)
[2020-11-27] MEDS ORDERED: DOCU-141 PO (11:57)
[2020-11-27] MEDS ORDERED: BISA10SU11 RC (11:57)
[2020-11-27] MEDS ORDERED: ALBU2.5V38 IH (11:57)
[2020-11-27] MEDS ORDERED: LEVO250T59 PO (11:57)
[2020-11-27] MEDS ORDERED: CHOL100062 PO (11:57)
[2020-11-27] MEDS ORDERED: FOLI0.8T2 PO (11:57)
[2020-11-27] MEDS ORDERED: MENT3.5O TP (11:57)
[2020-11-27] MEDS ORDERED: PANT40TA2 PO (11:57)
[2020-11-27] MEDS ORDERED: POLY17PO4 PO (11:57)
[2020-11-27] MEDS ORDERED: CHLO25TA2 PO (11:57)
[2020-11-27] MEDS ORDERED: AMIO200T5 PO (11:57)
[2020-11-27] MEDS ORDERED: ROSU10TA2 PO (11:57)
[2020-11-27 11:59] LABS: ALANINE AMINOTRANSFERASE 17 U/L (12-78); ALBUMIN 2.3 g/dL (3.4-5.0); ALKALINE PHOSPHATASE 145 U/L (46-116); ASPARTATE AMINOTRANSFERASE 23 U/L (15-37); BILIRUBIN,DIRECT 0.3 mg/dL (0.0-0.2); BILIRUBIN,TOTAL 0.5 mg/dL (0.2-1.0); TOTAL PROTEIN, SERUM 5.8 g/dL (6.4-8.2)
[2020-11-27] MEDS ORDERED: VANCOMYCIN 1 GM in IV D5W 250 ML IV ONE (12:00)
[2020-11-27] MEDS ORDERED: MENTHOL/CETYLPYRD (CEPACOL) 1 LOZ LOZENGE PO ONE (12:00)
[2020-11-27] MEDS ORDERED: CEFEPIME 1 GM in IV D5W 50 ML IV ONE (12:00)
[2020-11-27] MEDS ORDERED: IV NS 0.9% 1,000 ML IV ONE (12:00)
--- NOTE | 2020-11-27 12:21 | NUR ---
PERSONAL RNNAVJOT AT BEDSIDE
--- NOTE | 2020-11-27 12:31 | NUR ---
DR THOMAS AT BEDSIDE
[2020-11-27 12:47] LABS: LYMPHOCYTES % (MANUAL) 9 % (16-48); METAMYELOCYTES % 5 % (0-0); MONOCYTES % (MANUAL) 3 % (0-11.0); MYELOCYTES % 5 % (0-0); NEUTROPHILS % (MANUAL) 78 (42-76)
--- NOTE | 2020-11-27 13:33 | NUR ---
ASSIGEND BED 312-1 Addendum: 11/27/20 at 1333 by DENYS ASSIGNED BED 312-1
--- NOTE | 2020-11-27 13:33 | NUR ---
room 312-1
--- NOTE | 2020-11-27 13:51 | NUR ---
US TECH AT BEDSIDE
--- NOTE | 2020-11-27 13:55 | NUR ---
REPORT GIVEN TO REYNALDO YBARRA FOR KULDEEP
--- NOTE | 2020-11-27 14:00 | NUR ---
DR MAXWELL AT BEDSIDE
[2020-11-27] MEDS ORDERED: ACETAMINOPHEN 325 MG TABLET PO PRN ×2 (14:30→18:30)
--- NOTE | 2020-11-27 14:30 | NUR ---
RN NOTES PATIENT TRANSFERRED TO UNIT AT ROOM 312-1 [facility]IA [facility], ACCOMPANIED BY 2 ER NURSES.
[2020-11-27 16:42] VITALS: BP 138/59
[2020-11-27] MEDS ORDERED: BISACODYL SUPP (10 MG) 10 MG/SUPP.RECT SUPP.RECT RC PRN (17:30)
[2020-11-27] MEDS ORDERED: DOCUSATE SODIUM 100 MG CAPSULE PO PRN (17:30)
[2020-11-27] MEDS ORDERED: ALBUTEROL FS 2.5 MG/3 ML VIAL.NEB IH PRN (17:30)
--- NOTE | 2020-11-27 17:35 | NUR ---
RN NOTES ADMITTED THIS 85YO FEMALE FROM THE ER W/ ADMITTING DX OF COPD EXACERBATION UNDER THE SERVICES AND MEDICAL CARE OF DR. SARA THOMAS. PATIENT IS A/O X4, VERBALLY RESPONSIVE, ABLE TO MAKE NEEDS KNOWN. ON O2 AT 2LPM VIA NC, NO RESPIRATORY DISTRESS. ON TELE MONITORING, READING OF SR, NO CARDIAC DISTRESS. PATIENT IS INCONTINENT AND USES DIAPER. RN CAREGIVER AT BEDSIDE ASSISTING PATIENT. IV LINE ON RAC #18 INTACT AND PATENT, IVF OF NS INFUSING WELL. DR. NAIR PREVIOUSLY VISITED PATIENT AND UPDATED FAMILY ON PATIENT'S CONDITION. ORIENTED TO ROOM AND USE OF CALL LIGHT BUTTON FOR STAFF ASSISTANCE. SAFETY MEASURES IN PLACE.
--- NOTE | 2020-11-27 17:50 | NUR ---
RN NOTES DR. NAIR AT BEDSIDE W/ THE PATIENT.
--- NOTE | 2020-11-27 17:58 | NUR ---
RN NOTES PATIENT W/ STANDING ORDER FOR URINE STUDIES; PATIENT IS INCONTINENT PER BEDSIDE REPORT W/ PRIVATE NURSE. PER DR. NAIR, IF PATIENT IS OKAY WITH PROCEDURE, OKAY TO DO STRAIGHT CATH. WILL COLLECT SPECIMEN AFTER DINNER.
[2020-11-27] MEDS: BETHANECHOL CHLORIDE (10 MG) 10 MG TABLET PO SCH (18:25)
[2020-11-27] MEDS ORDERED: Z GUARD REMEDY 2 OZ OINT TP PRN (18:30)
[2020-11-27] MEDS ORDERED: MAGNESIUM HYDROXIDE 30 ML UDC PO PRN (18:30)
[2020-11-27] MEDS ORDERED: ONDANSETRON HCL/PF 4 MG/2 ML VIAL IVP PRN (18:30)
--- NOTE | 2020-11-27 19:30 | NUR ---
DIVIDING MACHINE OPERATOR HELPER OPENING NOTE RECEIVED PT AWAKE IN BED. A/O X4. PT ON 2LPM O2 VIA NC, TOLERATING WELL. NO SOB OR S/S OF RESPIRATORY DISTRESS NOTED. PT ON EXTERNAL CERAMIC TILE INSTALLATION HELPER READING SR AT 70BPM. PT DENIES PAIN OR DISCOMFORT AT THIS TIME. IV ACCESS IN RAC #18 INFUSING NS AT 75ML/HR, INTACT AND PATENT. ISSAC, PRIVATE NURSE, AT BEDSIDE. SAFETY PRECAUTIONS MAINTAINED. BED IN LOWEST LOCKED POSITION, HOB ELEVATED, SIDE RAILS UP X2. CALL LIGHT AND TABLE WITHIN REACH. WILL CONTINUE WITH PLAN OF CARE.
[2020-11-27 19:43] LABS: BILIRUBIN,URINE NEGATIVE (NEGATIVE); COLOR,URINE YELLOW (YELLOW); LEUKOCYTE ESTERASE ,URINE SMALL (NEGATIVE); NITRITE, URINE POSITIVE (NEGATIVE); PROTEIN,URINE TRACE mg/dl (NEGATIVE); UGLUCOSE NEGATIVE (NEGATIVE); UROBILINOGEN,URINE 0.2 EU/dL (0.2)
[2020-11-27 19:46] LABS: CREATININE, URINE 26.7 MG/DL (30.0-125.0); URINE TOTAL PROTEIN 75.5 mg/dL (0-11.9)
[2020-11-27 19:50] LABS: IRON, SERUM 17 ug/dl (50-175); TOTAL IRON BINDING CAPACITY 143 ug/dl (250-450)
[2020-11-27] MEDS: CEFEPIME 1 GM in IV D5W 50 ML IV SCH (19:54)
[2020-11-27 19:56] LABS: BACTERIA,URINE 3+ /HPF (None Seen); RBC,URINE 21-50 /HPF (0-2); SQUAMOUS EPITHELIAL CELL,UR 0-2 /HPF (None Seen)
[2020-11-27 20:00] VITALS: BP 145/68
[2020-11-27 20:02] LABS: EOSINOPHIL,URINE None Seen
[2020-11-27] MEDS: methylPREDNISolone SOD SUCC 40 MG/ML VIAL IV SCH (20:43)
[2020-11-27] MEDS: ATORVASTATIN 10 MG TABLET PO SCH (21:03)
[2020-11-27] MEDS: POLYETHYLENE GLYCOL 3350 17 GM POWD.PACK PO SCH (21:57)
[2020-11-28] VITALS: BP 142/77
[2020-11-28 04:00] VITALS: BP 125/78
[2020-11-28] MEDS: methylPREDNISolone SOD SUCC 40 MG/ML VIAL IV SCH ×3 (04:52→20:36)
--- NOTE | 2020-11-28 06:35 | NUR ---
RETAIL PROPERTY MANAGER CLOSING NOTE PT IS AWAKE IN BED. A/O X4. PT ON 2LPM O2 VIA NC, TOLERATING WELL. NO SOB OR S/S OF RESPIRATORY DISTRESS NOTED. PT ON EXTERNAL TRACTOR TRAILER DRIVER READING SR AT 72BPM. PT DENIES PAIN OR DISCOMFORT AT THIS TIME. IV ACCESS IN RAC #18 INFUSING NS AT 75ML/HR, INTACT AND PATENT. ISSAC, PRIVATE NURSE, AT BEDSIDE. ALL NEEDS HAVE BEEN MET. SAFETY PRECAUTIONS MAINTAINED AT ALL TIMES. BED IN LOWEST LOCKED POSITION, HOB ELEVATED, SIDE RAILS UP X2. CALL LIGHT AND TABLE WITHIN REACH. WILL ENDORSE TO ONCOMING NURSE FOR KULDEEP.
[2020-11-28 07:11] LABS: BASOPHILS % (AUTO) 0.1 % (0.0-2.0); HEMATOCRIT 25 % (33-45); HEMOGLOBIN 7.9 g/dL (11.5-14.8); MEAN CORPUSCULAR HGB CONC 32 g/dl (31.0-36.0); MEAN CORPUSCULAR VOLUME 88 fL (82-100); MONOCYTES # (AUTO) 0.6 K/uL (0.1-1.30); MONOCYTES % (AUTO) 1.7 % (2.0-12.0); NEUTROPHILS # (AUTO) 32.6 K/uL (1.8-8.9); NEUTROPHILS % (AUTO) 85.2 % (43.0-81.0); PLATELET COUNT (AUTO) 272 K/uL (150-450); RED BLOOD CELL COUNT(AUTO) 2.79 MIL/uL (4.0-5.2)
--- NOTE | 2020-11-28 07:26 | NUR ---
Received a call from labs stating that patient's WBC was 38.2, no apparent distress noted with patient, afebrile at this time, breathing even and unlabored, Nguyễn Pearce made aware, waiting for orders.
[2020-11-28] MEDS ORDERED: ALENDRONATE 70 MG TABLET PO SCH (07:30)
--- NOTE | 2020-11-28 07:30 | NUR ---
RN OPENING NOTES Patient seen comfortably lying in bed, no SOB, no apparent distress noted, breathing even and unlabored, denies any pain or discomfort at this time. Call light left within reach, safety precautions in place, brakes locked, side rails up X 2, will monitor closely for any changes.
[2020-11-28 07:34] LABS: WHITE BLOOD COUNT (AUTO) 38.2 K/uL (4.3-11.0)
[2020-11-28] MEDS: LEVOTHYROXINE SODIUM 112 MCG TABLET PO SCH (07:59)
[2020-11-28] MEDS: PANTOPRAZOLE 40 MG TABLET.DR PO SCH (07:59)
[2020-11-28 08:00] VITALS: BP 147/57
[2020-11-28 08:17] LABS: ALANINE AMINOTRANSFERASE 18 U/L (12-78); ALBUMIN 2.2 g/dL (3.4-5.0); ALKALINE PHOSPHATASE 132 U/L (46-116); ASPARTATE AMINOTRANSFERASE 16 U/L (15-37); BILIRUBIN,TOTAL 0.4 mg/dL (0.2-1.0); CALCIUM, SERUM 7.4 mg/dL (8.5-10.1); CARBON DIOXIDE 28 mmol/L (21-32); CHLORIDE 93 mmol/L (98-107); CREATININE 2.8 mg/dL (0.6-1.3); GLUCOSE 185 mg/dL (74-106); MAGNESIUM 2.4 mg/dL (1.8-2.4); PHOSPHORUS 5.3 mg/dL (2.5-4.9); POTASSIUM 3.6 mmol/L (3.5-5.1); SODIUM SERUM 129 mmol/L (136-145); TOTAL PROTEIN, SERUM 5.6 g/dL (6.4-8.2)
[2020-11-28 08:30] LABS: CHOLESTEROL 66 mg/dL (<200); CREATINE KINASE, TOTAL 23 U/L (26-192); HDL CHOLESTEROL 20 mg/dL (40-60); LDL 25 mg/dL (0-99); THYROID STIMULATING HORMONE 0.324 uIU/mL (0.358-3.74); TRIGLYCERIDES 44 mg/dL (30-150); URIC ACID 8.9 mg/dL (2.6-7.2)
--- NOTE | 2020-11-28 08:37 | NUR ---
Received a call from labs stating that patient's culture came back with gram (-) rods, patient, afebrile at this time no apparent distress noted, breathing even and unlabored, Nguyễn Pearce made aware, waiting for orders.
[2020-11-28] MEDS: BETHANECHOL CHLORIDE (10 MG) 10 MG TABLET PO SCH ×3 (09:08→16:44)
[2020-11-28] MEDS: ASPIRIN 81 MG TAB.CHEW PO SCH (09:08)
[2020-11-28] MEDS: IV NS 0.9% 1,000 ML IV PRN (09:08)
[2020-11-28] MEDS: AMIODARONE HCL 200 MG TABLET PO SCH (09:09)
[2020-11-28] MEDS: IPRATROPIUM NEB FS 0.5 MG/2.5 ML AMPUL.NEB NEB SCH ×3 (09:14→20:00)
[2020-11-28 10:30] LABS: BAND % (MANUAL) 4 % (0.0-5.0); LYMPHOCYTES % (MANUAL) 8 % (16-48); METAMYELOCYTES % 2 % (0-0); MONOCYTES % (MANUAL) 3 % (0-11.0); MYELOCYTES % 2 % (0-0); NEUTROPHILS % (MANUAL) 81 (42-76)
[2020-11-28 11:35] LABS: ABG BASE EXCESS -3.5 mmol/L; ABG OXYGEN SATURATION 88.5 % (92.0-98.5); ABG PCO2 36.8 mmHg (35.0-45.0); ABG PH 7.379 (7.350-7.450); ABG PO2 55.3 mmHg (75.0-100.0); AaDO2 50.4 mmHg; COHb 1.4 % (0.5-1.5); MetHb 0.3 % (0.0-1.5); SITE, ABG Left Radial; VENT MODE, BG ROOM AIR
--- NOTE | 2020-11-28 11:58 | NUR ---
Bladder scan done and revealed, 177ml residual, no bladder distention noted, no bladder discomfort when bladder palpated, per caregiver, patient able to pee in the diaper and she already changed it, no hematuria, no unusual odor noted, patient denies any unusual sensation when urinating will monitor closely for any changes.
[2020-11-28 12:00] VITALS: BP 111/49
[2020-11-28] MEDS: DILTIAZEM HCL CD 240 MG PO SCH (12:06)
--- NOTE | 2020-11-28 13:14 | NUR ---
Received a call from laboratory stating that patient's procalcitonin is 2.48, patient, afebrile at this time no apparent distress noted, breathing even and unlabored, MD made aware, waiting for orders.
[2020-11-28] MEDS: SOD FERRIC GLUC 125 MG in IV NS 0.9% 100 ML IV SCH (15:16)
[2020-11-28 16:00] VITALS: BP 112/53
--- NOTE | 2020-11-28 18:53 | NUR ---
RN CLOSING NOTES Patient lying in bed, AO X 4, able to make needs known, can follow simple commands. No SOB, breathing even and unlabored, 02 sat ranging from 98-100% with oxygen via nasal cannula at 2LPM, denies any pain or discomfort at this time, no apparent distress noted. Abdominal bowel sounds present in all quadrants, denies any pain or discomfort when abdomen palpated, no abdominal and no bladder distention, no hematuria noted, no unusual odor in urine, no unusual discharge noted, patient remained afebrile during shift. All medications given per MD order, tolerating well, kept clean and dry, safety precautions in place, brakes locked, side rails up X 2, call light left within reach, will endorse to next shift for continuity of care.
--- NOTE | 2020-11-28 19:55 | NUR ---
TELERN FULLY AWAKE, CAREGIVER AT BEDSIDE. PRESENT IVF INFUSING WELL VIA RIGHT AC 18 GAUGE.NO NEEDS AT THIS TIME. SR ON THE MONITOR. CONTINUED MONITORING
[2020-11-28 20:00] VITALS: BP 116/63
[2020-11-28] MEDS: CEFEPIME 1 GM in IV D5W 50 ML IV SCH (20:22)
[2020-11-28] MEDS: ATORVASTATIN 10 MG TABLET PO SCH (21:06)
[2020-11-28] MEDS: POLYETHYLENE GLYCOL 3350 17 GM POWD.PACK PO SCH (21:06)
--- NOTE | 2020-11-28 22:00 | NUR ---
TELERN DUE MEDS ADMINISTERED. KEPT COMFORTABLE V/S STABLE.
[2020-11-29] VITALS: BP 130/66
[2020-11-29] MEDS: IPRATROPIUM NEB FS 0.5 MG/2.5 ML AMPUL.NEB NEB SCH ×4 (01:39→20:04)
--- NOTE | 2020-11-29 01:41 | NUR ---
MSRN RT AT BEDSIDE FOR BREATHING TREATMENTS. IVF INFUSING WELL. ALL NEEDS ATTENDED.
[2020-11-29] MEDS: methylPREDNISolone SOD SUCC 40 MG/ML VIAL IV SCH ×2 (04:48→12:30)
--- NOTE | 2020-11-29 05:45 | NUR ---
TELERN DUE MEDS GIVEN, IVF INFUSING WELL. V/S STABLE. NO NEEDS MADE.
--- NOTE | 2020-11-29 07:30 | NUR ---
CARBIDE GRINDER OPENING NOTES RECEIVED PATIENT AWAKE ON BED AND A/O X4. ON O2 AT 2LPM TOLERATING WELL WITH NO COMPLAINTS OF SOB. NOT IN DISTRESS. WITH NO COMPLAINTS OF PAIN AT THIS TIME. WITH IV ACCESS AT LEFT UPPER ARM MIDLINE WITH IVF NS AT 75ML/HR. SAFETY MEASURES IN PLACED. CALL LIGHT WITHIN REACH. BED ON LOWEST AND LOCKED POSITION, SIDE RAILS UP X2. WILL CONTINUE TO MONITOR.
[2020-11-29 08:00] VITALS: BP 140/57
[2020-11-29] MEDS: LEVOTHYROXINE SODIUM 112 MCG TABLET PO SCH (08:05)
[2020-11-29] MEDS: PANTOPRAZOLE 40 MG TABLET.DR PO SCH (08:05)
[2020-11-29] MEDS: IV NS 0.9% 1,000 ML IV PRN (08:06)
[2020-11-29 08:10] LABS: BASOPHILS # (AUTO) 0.2 K/uL (0.0-0.2); BASOPHILS % (AUTO) 0.4 % (0.0-2.0); EOSINOPHILS % (AUTO) 0.5 % (0.0-6.0); HEMATOCRIT 24 % (33-45); HEMOGLOBIN 7.8 g/dL (11.5-14.8); LYMPHOCYTES % (AUTO) 13.9 % (20.0-44.0); MEAN CORPUSCULAR HGB CONC 32 g/dl (31.0-36.0); MEAN CORPUSCULAR VOLUME 89 fL (82-100); MONOCYTES # (AUTO) 0.6 K/uL (0.1-1.30); MONOCYTES % (AUTO) 1.5 % (2.0-12.0); NEUTROPHILS # (AUTO) 35.8 K/uL (1.8-8.9); NEUTROPHILS % (AUTO) 83.7 % (43.0-81.0); PLATELET COUNT (AUTO) 322 K/uL (150-450); RED BLOOD CELL COUNT(AUTO) 2.76 MIL/uL (4.0-5.2)
[2020-11-29 08:31] LABS: CALCIUM, SERUM 7.7 mg/dL (8.5-10.1); CARBON DIOXIDE 26 mmol/L (21-32); CHLORIDE 93 mmol/L (98-107); CREATININE 2.6 mg/dL (0.6-1.3); GLUCOSE 201 mg/dL (74-106); MAGNESIUM 2.3 mg/dL (1.8-2.4); PHOSPHORUS 4.9 mg/dL (2.5-4.9); POTASSIUM 3.3 mmol/L (3.5-5.1); SODIUM SERUM 128 mmol/L (136-145); UREA NITROGEN, BLOOD 64 mg/dL (7-18)
[2020-11-29 08:34] LABS: WHITE BLOOD COUNT (AUTO) 42.8 K/uL (4.3-11.0)
[2020-11-29] MEDS: DILTIAZEM HCL CD 240 MG PO SCH (09:42)
[2020-11-29] MEDS: ASPIRIN 81 MG TAB.CHEW PO SCH (09:42)
[2020-11-29] MEDS: AMIODARONE HCL 200 MG TABLET PO SCH (09:43)
[2020-11-29] MEDS: BETHANECHOL CHLORIDE (10 MG) 10 MG TABLET PO SCH ×3 (09:43→17:10)
[2020-11-29 12:00] VITALS: BP 132/57
[2020-11-29 12:06] LABS: *SPE A/G RATIO 0.9 (0.7-1.7); *SPE ALPHA-1-GLOBULIN 0.5 g/dL (0.0-0.4); *SPE BETA GLOBULIN 0.6 g/dL (0.7-1.3); *SPE M-SPIKE Not Observed g/dL (Not Observed)
[2020-11-29 12:15] LABS: BAND % (MANUAL) 3 % (0.0-5.0); LYMPHOCYTES % (MANUAL) 12 % (16-48); METAMYELOCYTES % 1 % (0-0); MONOCYTES % (MANUAL) 2 % (0-11.0); MYELOCYTES % 2 % (0-0); NEUTROPHILS % (MANUAL) 80 (42-76)
[2020-11-29] MEDS: MEROPENEM 500 MG in IV NS 0.9% 50 ML IV SCH ×2 (12:29→21:18)
[2020-11-29] MEDS: POTASSIUM CHLORIDE 20 MEQ TAB.PRT.SR PO SCH ×2 (12:30→14:26)
[2020-11-29] MEDS ORDERED: VANCOMYCIN 1 GM in IV D5W 250ml IV SCH (13:00)
[2020-11-29] MEDS ORDERED: POTASSIUM CHLORIDE 20 MEQ TAB.PRT.SR PO ONE (14:19)
[2020-11-29] MEDS: SOD FERRIC GLUC 125 MG in IV NS 0.9% 100 ML IV SCH (14:26)
[2020-11-29 16:00] VITALS: BP 151/59
--- NOTE | 2020-11-29 18:42 | NUR ---
REAL ESTATE APPRAISER CLOSING NOTES PATIENT AWAKE ON BED AND A/O X4. ON O2 AT 2LPM TOLERATING WELL WITH NO COMPLAINTS OF SOB. NOT IN DISTRESS. WITH NO COMPLAINTS OF PAIN AT THIS TIME. ON TELE MONITOR CURRENTLY READING SINUS RHYTHM AT 93BPM. WITH IV ACCESS AT LEFT UPPER ARM MIDLINE WITH IVF NS AT 75ML/HR. DUE MEDS GIVEN. SAFETY MEASURES IN PLACED. CALL LIGHT WITHIN REACH. BED ON LOWEST AND LOCKED POSITION, SIDE RAILS UP X2. WILL ENDORSE TO NEXT SHIFT FOR KULDEEP.
[2020-11-29 19:44] VITALS: BP 141/62
[2020-11-29 20:00] VITALS: BP 141/62
--- NOTE | 2020-11-29 20:38 | NUR ---
received in bed alert and orientated X4 Resp at the bedside to start ordered treatment no Sob noted smiles
[2020-11-29] MEDS: POLYETHYLENE GLYCOL 3350 17 GM POWD.PACK PO SCH (21:17)
[2020-11-29] MEDS: ATORVASTATIN 10 MG TABLET PO SCH (21:18)
[2020-11-30] MEDS: IPRATROPIUM NEB FS 0.5 MG/2.5 ML AMPUL.NEB NEB SCH ×4 (01:30→20:21)
--- NOTE | 2020-11-30 02:06 | NUR ---
RT NOTE PT REFUSED TX AT THIS TIME. CAREGIVER @ BEDSIDE. NO RESPIRATORY DISTRESS NOTED. PT SLEEPING COMFORTABLY. RN JEIMY NOTIFIED.
[2020-11-30] MEDS: IV NS 0.9% 1,000 ML IV PRN (04:12)
--- NOTE | 2020-11-30 05:00 | NUR ---
ENDING NOTES: ALERT AND ORIENTATED X4 MYSQL DATABASE DEVELOPER AT THE BEDSIDE PATIENT WITH A FLAT AFFECT NO C/O PAIN OR SOB WEARING 02 2 LITERS REFUSED 2am RESP TX BUT 5am REQUESTING A TX PHONE [place] TO RESP (URGENT) MADE NO DISTRESS SEEN WITH THE PATIENT AT THIS TIME A GOOD NIGHT
--- NOTE | 2020-11-30 07:30 | NUR ---
JOCKEY'S AGENT OPENING NOTES RECEIVED PATIENT AWAKE ON BED AND A/O X4. ON O2 AT 2LPM TOLERATING WELL WITH NO COMPLAINTS OF SOB. NOT IN DISTRESS. WITH NO COMPLAINTS OF PAIN AT THIS TIME. ON TELE MONITOR CURRENTLY READING NORMAL SINUS RHYTHM AT 75BPM. WITH IV ACCESS AT LEFT UPPER ARM MIDLINE WITH IVF NS AT 75ML/HR. SAFETY MEASURES IN PLACED. CALL LIGHT WITHIN REACH. BED ON LOWEST AND LOCKED POSITION, SIDE RAILS UP X2. WILL CONTINUE TO MONITOR.
[2020-11-30 08:00] VITALS: BP 145/50
[2020-11-30 09:46] LABS: BASOPHILS # (AUTO) 0.1 K/uL (0.0-0.2); BASOPHILS % (AUTO) 0.2 % (0.0-2.0); HEMATOCRIT 25 % (33-45); HEMOGLOBIN 7.9 g/dL (11.5-14.8); LYMPHOCYTES # (AUTO) 9.1 K/uL (0.8-4.8); LYMPHOCYTES % (AUTO) 17.5 % (20.0-44.0); MEAN CORPUSCULAR HGB CONC 32 g/dl (31.0-36.0); MEAN CORPUSCULAR VOLUME 89 fL (82-100); MONOCYTES # (AUTO) 2.1 K/uL (0.1-1.30); MONOCYTES % (AUTO) 3.9 % (2.0-12.0); NEUTROPHILS # (AUTO) 40.8 K/uL (1.8-8.9); NEUTROPHILS % (AUTO) 78.4 % (43.0-81.0); PLATELET COUNT (AUTO) 367 K/uL (150-450); RED BLOOD CELL COUNT(AUTO) 2.79 MIL/uL (4.0-5.2)
[2020-11-30 09:56] LABS: WHITE BLOOD COUNT (AUTO) 52.1 K/uL (4.3-11.0)
[2020-11-30] MEDS: PANTOPRAZOLE 40 MG TABLET.DR PO SCH (10:02)
[2020-11-30] MEDS: ASPIRIN 81 MG TAB.CHEW PO SCH (10:02)
[2020-11-30] MEDS: MEROPENEM 500 MG in IV NS 0.9% 50 ML IV SCH ×2 (10:02→21:12)
[2020-11-30] MEDS: LEVOTHYROXINE SODIUM 112 MCG TABLET PO SCH (10:03)
[2020-11-30] MEDS: DILTIAZEM HCL CD 240 MG PO SCH (10:04)
[2020-11-30] MEDS: AMIODARONE HCL 200 MG TABLET PO SCH (10:04)
[2020-11-30] MEDS: methylPREDNISolone SOD SUCC 40 MG/ML VIAL IV SCH (10:05)
[2020-11-30] MEDS: BETHANECHOL CHLORIDE (10 MG) 10 MG TABLET PO SCH ×3 (10:05→16:33)
[2020-11-30 10:25] LABS: ALANINE AMINOTRANSFERASE 14 U/L (12-78); ALBUMIN 2.3 g/dL (3.4-5.0); ALKALINE PHOSPHATASE 103 U/L (46-116); ASPARTATE AMINOTRANSFERASE 8 U/L (15-37); BILIRUBIN,TOTAL 0.4 mg/dL (0.2-1.0); CALCIUM, SERUM 7.8 mg/dL (8.5-10.1); CARBON DIOXIDE 29 mmol/L (21-32); CHLORIDE 96 mmol/L (98-107); CREATININE 2.3 mg/dL (0.6-1.3); GLUCOSE 174 mg/dL (74-106); MAGNESIUM 2.1 mg/dL (1.8-2.4); PHOSPHORUS 4.5 mg/dL (2.5-4.9); POTASSIUM 3.4 mmol/L (3.5-5.1); SODIUM SERUM 134 mmol/L (136-145); TOTAL PROTEIN, SERUM 5.4 g/dL (6.4-8.2); UREA NITROGEN, BLOOD 62 mg/dL (7-18)
[2020-11-30 10:46] LABS: LYMPHOCYTES % (MANUAL) 23 % (16-48); METAMYELOCYTES % 3 % (0-0); MONOCYTES % (MANUAL) 4 % (0-11.0); MYELOCYTES % 3 % (0-0); NEUTROPHILS % (MANUAL) 67 (42-76)
[2020-11-30] MEDS ORDERED: POTASSIUM CHLORIDE 20 MEQ TAB.PRT.SR PO ONE (11:00)
[2020-11-30 12:00] VITALS: BP 163/81
[2020-11-30] MEDS: SOD FERRIC GLUC 125 MG in IV NS 0.9% 100 ML IV SCH (14:42)
[2020-11-30 16:00] VITALS: BP 139/59
--- NOTE | 2020-11-30 18:50 | NUR ---
SPINNING FRAME CLEANER CLOSING NOTES PATIENT RESTING ON BED AND A/O X4. ON O2 AT 2LPM TOLERATING WELL WITH NO COMPLAINTS OF SOB. NOT IN DISTRESS. WITH NO COMPLAINTS OF PAIN AT THIS TIME. ON TELE MONITOR CURRENTLY READING SINUS RHYTHM AT 69BPM. WITH IV ACCESS AT LEFT UPPER ARM MIDLINE WITH IVF NS AT 75ML/HR. DUE MEDS GIVEN. SAFETY MEASURES IN PLACED. CALL LIGHT WITHIN REACH. BED ON LOWEST AND LOCKED POSITION, SIDE RAILS UP X2. WILL ENDORSE TO NEXT SHIFT FOR KULDEEP.
--- NOTE | 2020-11-30 19:30 | NUR ---
RN OPENING NOTES: RECEIVED PT A/OX4 IN BED RESTING PATIENT IN NO S/SX OF ACUTE DISTRESS AT THIS TIME. NO SOB NOTED. PATIENT'S BREATHING IS EVEN AND UNLABORED. PATIENT IS ON 2L OF OXYGEN VIA NC; TOLERATING WELL; 02 SAT >95%. PATIENT ON CARDIAC DIET; TOLERATES WELL. NOTED IV SITE @ L AU MID #18 ; PATENT, INTACT AND FLUSHING WELL; NO S/S OF INFECTION OR INFILTRATION. SAFETY MEASURES HAVE BEEN PROVIDED AND IMPLEMENTED. PATIENT BED ALARM IS ON. HEAD OF BED ELEVATED. BED IS LOCKED, IN LOWEST POSITION AND SIDE RAILS UP. CALL LIGHT WITHIN REACH OF THE PATIENT. APPLICABLE ISOLATION PRECAUTIONS IN PLACE. PT'S PRIVATE DUTY NURSE @ BEDSIDE. WILL CONTINUE TO MONITOR AND REASSESS FOR ANY CHANGES AND WILL CARRY OUT ANY ONGOING AND ACTIVE MD ORDER.
[2020-11-30 20:00] VITALS: BP 138/58
[2020-11-30] MEDS: ATORVASTATIN 10 MG TABLET PO SCH (21:12)
[2020-11-30 21:21] LABS: CALCIUM, SERUM 7.6 mg/dL (8.5-10.1); CARBON DIOXIDE 27 mmol/L (21-32); CHLORIDE 96 mmol/L (98-107); CREATININE 2.2 mg/dL (0.6-1.3); GLUCOSE 208 mg/dL (74-106); POTASSIUM 3.7 mmol/L (3.5-5.1); SODIUM SERUM 131 mmol/L (136-145); UREA NITROGEN, BLOOD 62 mg/dL (7-18)
[2020-11-30] MEDS: POLYETHYLENE GLYCOL 3350 17 GM POWD.PACK PO SCH (21:22)
[2020-11-30 22:18] LABS: BASOPHILS # (AUTO) 0.1 K/uL (0.0-0.2); BASOPHILS % (AUTO) 0.3 % (0.0-2.0); HEMATOCRIT 24 % (33-45); HEMOGLOBIN 7.6 g/dL (11.5-14.8); LYMPHOCYTES # (AUTO) 8.2 K/uL (0.8-4.8); LYMPHOCYTES % (AUTO) 17.5 % (20.0-44.0); MEAN CORPUSCULAR HGB CONC 32 g/dl (31.0-36.0); MEAN CORPUSCULAR VOLUME 89 fL (82-100); MONOCYTES # (AUTO) 1.2 K/uL (0.1-1.30); MONOCYTES % (AUTO) 2.7 % (2.0-12.0); NEUTROPHILS # (AUTO) 37.3 K/uL (1.8-8.9); NEUTROPHILS % (AUTO) 79.5 % (43.0-81.0); PLATELET COUNT (AUTO) 360 K/uL (150-450); RED BLOOD CELL COUNT(AUTO) 2.72 MIL/uL (4.0-5.2)
[2020-11-30 22:35] LABS: WHITE BLOOD COUNT (AUTO) 46.9 K/uL (4.3-11.0)
--- NOTE | 2020-11-30 22:37 | NUR ---
RN NOTES RECEIVED CALL FROM [facility];CRITICAL LAB WBC @46.9. NOTIFIED KRISHAN NAIR NP. ACKNOWLEDGED NO NEW ORDERS. SALES SERVICE MANAGER MADE AWARE.
--- NOTE | 2020-12-01 | NUR ---
RN NOTES PATIENT REMAINED TO BE IN NO SIGNS OF ACUTE RESPIRATORY DISTRESS; WILL CONTINUE TO MONITOR AND REASSESS FOR ANY CHANGES THROUGHOUT THE SHIFT. LEATHER ROLLER STILL AT BEDSIDE.
--- NOTE | 2020-12-01 00:30 | NUR ---
RN NOTES PT REFUSED VITAL SIGNS FOR 0000 SCHEDULE; RN ACKNOWLEDGED. MAP PLOTTER WELL AWARE.
[2020-12-01 00:34] LABS: BAND % (MANUAL) 3 % (0.0-5.0); LYMPHOCYTES % (MANUAL) 15 % (16-48); METAMYELOCYTES % 1 % (0-0); MONOCYTES % (MANUAL) 3 % (0-11.0); MYELOCYTES % 2 % (0-0); NEUTROPHILS % (MANUAL) 76 (42-76)
[2020-12-01] MEDS: IPRATROPIUM NEB FS 0.5 MG/2.5 ML AMPUL.NEB NEB SCH ×2 (01:05→09:04)
--- NOTE | 2020-12-01 06:45 | NUR ---
RN CLOSING NOTE: PATIENT REMAINS IN ROOM IN NO SIGNS OF RESPIRATORY DISTRESS, PATIENT STILL ON2L OF O2 VIA NC;TOLERATING WELL SATURATING @ >95% SP02. SAFETY MEASURES IMPLEMENTED, BED IN LOWEST POSITION, LOCKED, SIDE RAILS UP, CALL LIGHT WITHIN REACH. ALL NEEDS AND ORDERS ADDRESSED DURING THE SHIFT. IV ACCESS MAINTAINED INTACT, SECURED AND FLUSHING WELL. ALL DUE MEDS GIVEN ORDERED & SCHEDULED ; PATIENT TOLERATED WELL. PATIENT KEPT CLEAN AND COMFORTABLE WITHIN THE SHIFT. PATIENT ENDORSED TO INCOMING SHIFT RN WITH STABLE VITAL SIGN AND FOR CONTINUITY OF CARE.
[2020-12-01] MEDS: PANTOPRAZOLE 40 MG TABLET.DR PO SCH (06:52)
[2020-12-01] MEDS: LEVOTHYROXINE SODIUM 112 MCG TABLET PO SCH (06:53)
--- NOTE | 2020-12-01 07:29 | NUR ---
INSTRUMENT MAKER OPENING NOTES RECEIVED PT AWAKE IN BED IN NO ACUTE SIGNS OF DISTRESS. ISSAC, PRIVATE NURSE AT BEDSIDE. PT IS A/O X4, ABLE TO MAKE NEEDS KNOWN, DENIES PAIN OR ANY DISCOMFORTS AT THIS TIME. PT ON 2LPM O2 VIA NC, TOLERATING WELL, RESPIRATIONS ARE EVEN AND UNLABORED. ON EXTERNAL HEAD OF MUSIC WITH READING OF NSR, HR ON THE 70'S, NO C/O CARDIAC DISTRESS VOICED. IV ACCESS ON RAC #18 AND MIDLINE ON KVNG BOTH INTACT AND PATENT. SAFETY PRECAUTIONS MAINTAINED: BED IN LOWEST LOCKED POSITION, HOB ELEVATED, SIDE RAILS UP X2. CALL LIGHT AND BEDSIDE TABLE WITHIN REACH. WILL CONTINUE WITH PLAN OF CARE.
[2020-12-01 08:00] VITALS: BP 159/63
[2020-12-01] MEDS: ASPIRIN 81 MG TAB.CHEW PO SCH (08:17)
[2020-12-01] MEDS: DILTIAZEM HCL CD 240 MG PO SCH (08:17)
[2020-12-01] MEDS: AMIODARONE HCL 200 MG TABLET PO SCH (08:18)
[2020-12-01] MEDS: BETHANECHOL CHLORIDE (10 MG) 10 MG TABLET PO SCH ×2 (08:18→13:03)
[2020-12-01] MEDS: MEROPENEM 500 MG in IV NS 0.9% 50 ML IV SCH (08:22)
[2020-12-01 09:13] LABS: BASOPHILS # (AUTO) 0.2 K/uL (0.0-0.2); BASOPHILS % (AUTO) 0.3 % (0.0-2.0); HEMATOCRIT 25 % (33-45); LYMPHOCYTES # (AUTO) 11.9 K/uL (0.8-4.8); LYMPHOCYTES % (AUTO) 20.9 % (20.0-44.0); MEAN CORPUSCULAR HGB CONC 31 g/dl (31.0-36.0); MEAN CORPUSCULAR VOLUME 88 fL (82-100); MONOCYTES % (AUTO) 3.5 % (2.0-12.0); NEUTROPHILS # (AUTO) 42.8 K/uL (1.8-8.9); NEUTROPHILS % (AUTO) 75.3 % (43.0-81.0); PLATELET COUNT (AUTO) 418 K/uL (150-450); RED BLOOD CELL COUNT(AUTO) 2.89 MIL/uL (4.0-5.2)
[2020-12-01 09:17] LABS: WHITE BLOOD COUNT (AUTO) 56.8 K/uL (4.3-11.0)
[2020-12-01] MEDS ORDERED: IPRA0.2S49 NEB (09:41)
[2020-12-01] MEDS ORDERED: MERO500V23 IV (09:41)
--- NOTE | 2020-12-01 09:49 | NUR ---
RN NOTES RECEIVED CALL FROM [facility] THAT PT HAS CRITICAL HIGH WBC 56.8. NICOLE NAIR ON UNIT MADE AWARE AND ORDERED CT OF ABDOMEN W/O CONTRAST.
[2020-12-01 09:51] LABS: FERRITIN 716 ng/mL (8-388)
[2020-12-01 09:55] LABS: LYMPHOCYTES % (MANUAL) 23 % (16-48); MONOCYTES % (MANUAL) 7 % (0-11.0); NEUTROPHILS % (MANUAL) 70 (42-76)
--- NOTE | 2020-12-01 09:55 | NUR ---
RN NOTES PT PICKED UP FOR CT OF ABDOMEN VIA HER BED.
[2020-12-01 10:02] LABS: CALCIUM, SERUM 7.8 mg/dL (8.5-10.1); CARBON DIOXIDE 28 mmol/L (21-32); CHLORIDE 95 mmol/L (98-107); CREATININE 2.1 mg/dL (0.6-1.3); GLUCOSE 170 mg/dL (74-106); MAGNESIUM 1.8 mg/dL (1.8-2.4); PHOSPHORUS 4.1 mg/dL (2.5-4.9); POTASSIUM 3.7 mmol/L (3.5-5.1); SODIUM SERUM 131 mmol/L (136-145); UREA NITROGEN, BLOOD 59 mg/dL (7-18)
[2020-12-01 12:00] VITALS: BP 146/69
[2020-12-01] MEDS ORDERED: TIOT4MIS5 IH (13:17)
[2020-12-01] MEDS ORDERED: BETH10TA4 PO (13:17)
[2020-12-01] MEDS ORDERED: DILT240C88 PO (13:17)
--- NOTE | 2020-12-01 13:47 | NUR ---
RN DISCHARGED NOTES PT DISCHARGED HOME IN STABLE CONDITION. A/O X4. ABLE TO VERBALIZED NEEDS. V/S TAKEN, STABLE AND RECORDED. PT REFUSED PHOTOS OF SKIN ISSUES TO BE TAKEN. ALL BELONINGS ACCOUNTED FOR AND SIGNED FORM. IV ACCESS ON RAC REMOVED, NO ACTIVE BLEEDING NOTED, DRY PRESSURE GAUZE APPLIED TO SITE. KVNG MIDLINE KEPT IN PLACE, PT WILL CONTINUE TO RECEIVE IV ABX FOR 7 MORE DAYS PER MD ORDER. HEALTH TEACHINGS GIVEN TO PT AND PRIVATE NURSE ISSAC, BOTH VERBALIZED UNDERSTANDING. PT LEFT UNIT AT 1330 VIA GURNEY AND ON VIA N/C AT 2LPM ACCOMPANIED BY 2 EMT'S FROM [facility].CHARGE NURSE AWARE OF DISCHARGE
[2020-12-05] MEDS ORDERED: PRED20TA PO (11:00)
== END 2020-12-01 13:40 | disposition home health service (06) | DRG 871 ==
LOC: ER 10:47 → TELE 13:34
PROVIDERS: ADMIT Nurse Practitioner Acute Care; ATTEND Nurse Practitioner Acute Care
PROC: 05H633Z Insertion of Infusion Device into Left Subclavian Vein, Percutaneous Approach (ICD-10-PCS; principal; 2020-11-29)
PROC: B547ZZA Ultrasonography of Left Subclavian Vein, Guidance (ICD-10-PCS; 2020-11-29)
DX: A41.51 Sepsis due to Escherichia coli [E. coli] (principal); E43 Unspecified severe protein-calorie malnutrition; I50.33 Acute on chronic diastolic (congestive) heart failure; J18.9 Pneumonia, unspecified organism; N17.0 Acute kidney failure with tubular necrosis; E87.1 Hypo-osmolality and hyponatremia; J44.1 Chronic obstructive pulmonary disease with (acute) exacerbation; J44.0 Chronic obstructive pulmonary disease with (acute) lower respiratory infection; I48.20 Chronic atrial fibrillation, unspecified; N39.0 Urinary tract infection, site not specified; D68.69 Other thrombophilia; N13.6 Pyonephrosis; C25.4 Malignant neoplasm of endocrine pancreas; C79.89 Secondary malignant neoplasm of other specified sites; Z20.822 Contact with and (suspected) exposure to COVID-19; E31.21 Multiple endocrine neoplasia [MEN] type I; D63.8 Anemia in other chronic diseases classified elsewhere; E86.1 Hypovolemia; K59.00 Constipation, unspecified; N18.9 Chronic kidney disease, unspecified; Z86.73 Personal history of transient ischemic attack (TIA), and cerebral infarction without residual deficits; Z79.82 Long term (current) use of aspirin; Z87.11 Personal history of peptic ulcer disease; Z87.891 Personal history of nicotine dependence; E88.09 Other disorders of plasma-protein metabolism, not elsewhere classified; I08.0 Rheumatic disorders of both mitral and aortic valves; E31.20 Multiple endocrine neoplasia [MEN] syndrome, unspecified; D63.1 Anemia in chronic kidney disease; Z68.25 Body mass index [BMI] 25.0-25.9, adult; R32 Unspecified urinary incontinence; I27.20 Pulmonary hypertension, unspecified; Z74.01 Bed confinement status; Z96.649 Presence of unspecified artificial hip joint; E87.6 Hypokalemia; Z95.818 Presence of other cardiac implants and grafts; Z99.81 Dependence on supplemental oxygen; D72.823 Leukemoid reaction; T38.0X5A Adverse effect of glucocorticoids and synthetic analogues, initial encounter; Y92.89 Other specified places as the place of occurrence of the external cause
CPT/HCPCS: 36410; 36415; 36600; 71045-TC; 71250-TC; 76700-TC; 76770-TC; 80048-TC; 80053-TC; 80061-TC; 80076-TC; 80202-TC; 81001; 82550-TC; 82570-TC; 82728-TC; 82803-TC; 83540-TC; 83605-TC; 83735-TC; 83880; 83970; 84100-TC; 84155; 84155-TC; 84165; 84300-TC; 84439-TC; 84443-TC; 84484-TC; 84550-TC; 85025-TC; 85730-TC; 87040-TC; 87081-TC; 87086-TC; 87186-TC; 93307-TC; 93970-TC; 94799-TC; 97112-TC; 97530-TC; C9803; G0378; J0692; J2185; J2916; J2920; J2930; J3370; J7030; J7060

== ENCOUNTER 2020-12-02 09:14 | Outpatient (CLI) | payer OTHER ==
[~2020-12-02 09:14] MED LIST changes: +ACET-868 PO; +ALEN70TA3 PO; +AMIO200T5 PO; +ASPI-1169 PO; -ATOR10TA PO; +BETH10TA4 PO; +BISA10SU11 RC; +CHOL100062 PO; -DABI110C PO; -DILT-32 PO; +DILT240C88 PO; +DOCU-141 PO; -FLUT1DIS5 IH; +FOLI0.8T2 PO; -FURO-144 PO; +IPRA0.2S49 NEB; -IPRA3AMP23 IH; -LORA-259 PO; +MELA3TAB41 PO; +MENT3.5O TP; +MERO500V23 IV; -MONT10TA22 PO; +PANT40TA2 PO; +POLY17PO4 PO; -POTA20TA83 PO; +ROSU10TA2 PO; +TIOT4MIS5 IH
[2020-12-02 10:09] LABS: BASOPHILS # (AUTO) 0.2 K/uL (0.0-0.2); BASOPHILS % (AUTO) 0.3 % (0.0-2.0); EOSINOPHILS % (AUTO) 0.2 % (0.0-6.0); HEMATOCRIT 28 % (33-45); HEMOGLOBIN 8.6 g/dL (11.5-14.8); LYMPHOCYTES # (AUTO) 14.2 K/uL (0.8-4.8); LYMPHOCYTES % (AUTO) 21.9 % (20.0-44.0); MEAN CORPUSCULAR HGB CONC 31 g/dl (31.0-36.0); MEAN CORPUSCULAR VOLUME 89 fL (82-100); MONOCYTES # (AUTO) 3.2 K/uL (0.1-1.30); NEUTROPHILS # (AUTO) 47.2 K/uL (1.8-8.9); NEUTROPHILS % (AUTO) 72.6 % (43.0-81.0); PLATELET COUNT (AUTO) 409 K/uL (150-450)
[2020-12-02 10:14] LABS: CALCIUM, SERUM 8.1 mg/dL (8.5-10.1); CARBON DIOXIDE 32 mmol/L (21-32); CHLORIDE 96 mmol/L (98-107); CREATININE 2.1 mg/dL (0.6-1.3); GLUCOSE 149 mg/dL (74-106); POTASSIUM 3.6 mmol/L (3.5-5.1); SODIUM SERUM 132 mmol/L (136-145); UREA NITROGEN, BLOOD 58 mg/dL (7-18)
[2020-12-02 13:17] LABS: BAND % (MANUAL) 1 % (0.0-5.0); LYMPHOCYTES % (MANUAL) 22 % (16-48); MONOCYTES % (MANUAL) 3 % (0-11.0); NEUTROPHILS % (MANUAL) 74 (42-76)
[2020-12-03 11:20] LABS: CALCIUM, SERUM 8.2 mg/dL (8.5-10.1); CARBON DIOXIDE 31 mmol/L (21-32); CHLORIDE 99 mmol/L (98-107); CREATININE 1.7 mg/dL (0.6-1.3); GLUCOSE 114 mg/dL (74-106); MAGNESIUM 1.7 mg/dL (1.8-2.4); PHOSPHORUS 4.2 mg/dL (2.5-4.9); POTASSIUM 3.7 mmol/L (3.5-5.1); SODIUM SERUM 137 mmol/L (136-145); UREA NITROGEN, BLOOD 49 mg/dL (7-18)
[2020-12-03 11:58] LABS: BASOPHILS # (AUTO) 0.1 K/uL (0.0-0.2); BASOPHILS % (AUTO) 0.2 % (0.0-2.0); EOSINOPHILS % (AUTO) 0.3 % (0.0-6.0); HEMATOCRIT 24 % (33-45); HEMOGLOBIN 7.4 g/dL (11.5-14.8); LYMPHOCYTES # (AUTO) 10.2 K/uL (0.8-4.8); LYMPHOCYTES % (AUTO) 20.8 % (20.0-44.0); MEAN CORPUSCULAR HGB CONC 31 g/dl (31.0-36.0); MEAN CORPUSCULAR VOLUME 89 fL (82-100); MONOCYTES # (AUTO) 1.6 K/uL (0.1-1.30); MONOCYTES % (AUTO) 3.3 % (2.0-12.0); NEUTROPHILS % (AUTO) 75.4 % (43.0-81.0); PLATELET COUNT (AUTO) 289 K/uL (150-450); RED BLOOD CELL COUNT(AUTO) 2.68 MIL/uL (4.0-5.2)
[2020-12-03 12:15] LABS: WHITE BLOOD COUNT (AUTO) 49.1 K/uL (4.3-11.0)
[2020-12-03 13:01] LABS: NEUTROPHILS % (MANUAL) 78 (42-76)
[2020-12-03 13:02] LABS: BAND % (MANUAL) 1 % (0.0-5.0); LYMPHOCYTES % (MANUAL) 15 % (16-48); MONOCYTES % (MANUAL) 5 % (0-11.0)
[2020-12-05 10:38] LABS: EOSINOPHILS % (AUTO) 0.5 % (0.0-6.0); HEMATOCRIT 22 % (33-45); HEMOGLOBIN 7.1 g/dL (11.5-14.8); LYMPHOCYTES # (AUTO) 6.5 K/uL (0.8-4.8); LYMPHOCYTES % (AUTO) 21.4 % (20.0-44.0); MEAN CORPUSCULAR HGB CONC 32 g/dl (31.0-36.0); MEAN CORPUSCULAR VOLUME 88 fL (82-100); MONOCYTES # (AUTO) 1.3 K/uL (0.1-1.30); MONOCYTES % (AUTO) 4.3 % (2.0-12.0); NEUTROPHILS # (AUTO) 22.4 K/uL (1.8-8.9); NEUTROPHILS % (AUTO) 73.8 % (43.0-81.0); PLATELET COUNT (AUTO) 291 K/uL (150-450); RED BLOOD CELL COUNT(AUTO) 2.52 MIL/uL (4.0-5.2)
[2020-12-05 10:48] LABS: CALCIUM, SERUM 7.8 mg/dL (8.5-10.1); CARBON DIOXIDE 36 mmol/L (21-32); CHLORIDE 98 mmol/L (98-107); CREATININE 1.6 mg/dL (0.6-1.3); GLUCOSE 141 mg/dL (74-106); MAGNESIUM 1.7 mg/dL (1.8-2.4); PHOSPHORUS 3.4 mg/dL (2.5-4.9); POTASSIUM 3.4 mmol/L (3.5-5.1); SODIUM SERUM 135 mmol/L (136-145); UREA NITROGEN, BLOOD 34 mg/dL (7-18)
[2020-12-05 10:53] LABS: WHITE BLOOD COUNT (AUTO) 30.4 K/uL (4.3-11.0)
[2020-12-05] MEDS ORDERED: PRED20TA PO (11:00)
[2020-12-05 11:35] LABS: LYMPHOCYTES % (MANUAL) 38 % (16-48); MONOCYTES % (MANUAL) 1 % (0-11.0); NEUTROPHILS % (MANUAL) 61 (42-76)
== END 2020-12-02 23:59 | disposition home or self-care (01) ==
LOC: LAB 09:14
PROVIDERS: ATTEND Nurse Practitioner Acute Care
DX: N17.9 Acute kidney failure, unspecified (principal); A41.9 Sepsis, unspecified organism
CPT/HCPCS: 36415; 80048-TC; 83735-TC; 84100-TC; 85025-TC

== ENCOUNTER 2020-12-15 09:39 | Inpatient (IN) | payer OTHER ==
[2020-12-15] VITALS (8 sets, daily range): BP systolic 117–138; BP diastolic 46–59
[~2020-12-15] VITALS: Ht 167.6 cm; Wt 64.0 kg
[~2020-12-15 09:39] MED LIST changes: +PRED20TA PO
--- NOTE | 2020-12-15 09:58 | NUR ---
AAOX3, bib family sent by Nathalia Bolden NP for low Hgb=7.0. Resp i seven and unlabored with no apparent distress noted. Skin is warm and dry. Dr Boyle/Nathalia Bolden NP at for eval.
--- NOTE | 2020-12-15 10:01 | NUR ---
COVID SWAB DONE AND SENT TO THE LAB
[2020-12-15 10:09] LABS: BASOPHILS # (AUTO) 0.1 K/uL (0.0-0.2); BASOPHILS % (AUTO) 0.5 % (0.0-2.0); EOSINOPHILS % (AUTO) 5.6 % (0.0-6.0); HEMATOCRIT 22 % (33-45); HEMOGLOBIN 7.1 g/dL (11.5-14.8); LYMPHOCYTES # (AUTO) 4.6 K/uL (0.8-4.8); LYMPHOCYTES % (AUTO) 20.7 % (20.0-44.0); MEAN CORPUSCULAR HGB CONC 32 g/dl (31.0-36.0); MEAN CORPUSCULAR VOLUME 88 fL (82-100); MONOCYTES # (AUTO) 1.5 K/uL (0.1-1.30); NEUTROPHILS # (AUTO) 14.5 K/uL (1.8-8.9); NEUTROPHILS % (AUTO) 66.2 % (43.0-81.0); PLATELET COUNT (AUTO) 353 K/uL (150-450); RED BLOOD CELL COUNT(AUTO) 2.53 MIL/uL (4.0-5.2)
[2020-12-15 10:27] LABS: CALCIUM, SERUM 8.1 mg/dL (8.5-10.1); CHLORIDE 92 mmol/L (98-107); CREATININE 1.6 mg/dL (0.6-1.3); GLUCOSE 136 mg/dL (74-106); POTASSIUM 3.5 mmol/L (3.5-5.1); SODIUM SERUM 134 mmol/L (136-145); UREA NITROGEN, BLOOD 28 mg/dL (7-18)
[2020-12-15] MEDS ORDERED: ONDANSETRON HCL/PF 4 MG/2 ML VIAL IVP PRN (10:30)
[2020-12-15] MEDS ORDERED: ACETAMINOPHEN 325 MG TABLET PO PRN (10:30)
[2020-12-15 10:36] LABS: ALANINE AMINOTRANSFERASE 18 U/L (12-78); ALBUMIN 2.4 g/dL (3.4-5.0); ALKALINE PHOSPHATASE 92 U/L (46-116); ASPARTATE AMINOTRANSFERASE 13 U/L (15-37); BILIRUBIN,TOTAL 0.2 mg/dL (0.2-1.0); MAGNESIUM 1.8 mg/dL (1.8-2.4); PHOSPHORUS 3.1 mg/dL (2.5-4.9); TOTAL PROTEIN, SERUM 5.8 g/dL (6.4-8.2)
[2020-12-15 10:37] LABS: CARBON DIOXIDE 42 mmol/L (21-32)
[2020-12-15] MEDS ORDERED: ONDANSETRON HCL/PF 4 MG/2 ML VIAL ONE (10:42)
[2020-12-15] MEDS ORDERED: ACETAMINOPHEN 325 MG TABLET ONE (10:42)
[2020-12-15] MEDS ORDERED: LEVA0.6320 IH (11:01)
--- NOTE | 2020-12-15 11:09 | NUR ---
Report given to TATE Fong for KULDEEP MS [id number].
--- NOTE | 2020-12-15 11:10 | NUR ---
MS RN NOTE RECEIVED REPORT FROM ER NURSE. PATIENT WITH ONGOING CROSSMATCHING OF 1 UNIT PRBC ORDERED. WILL WAIT FOR PATIENT.
--- NOTE | 2020-12-15 11:25 | NUR ---
MS RN NOTE RECEIVED PATIENT FROM ER ALERT AND ORIENTED X 4. PATIENT ARRIVED ON A GURNEY ACCOMPANIED BY 2 NURSES AND A PRIVATE NURSE WITH OXYGEN AT 3LPM VIA NASAL CANULA WITH NO SIGN OF RESPIRATORY DISTRESS. PATIENT TRANSFERRED TO BED AND COMFORT MEASURES PROVIDED. PATIENT NOTED WITH LEFT UPPER ARM PICC LINE, PATIENT AND INTACT. WITH EVEN AND UNLABORED BREATHING BUT APPEARS WEAK AND WAS VERBALIZED BY THE PATIENT WELL. PATIENT FOR BLOOD TRANSFUSION ORDERED. AWAITING AVAILABILITY OF BLOOD. SEEN BY DR. NAIR. SAFETY MEASURES ENSURED WITH SIDE RAILS RAISED FOR SAFETY, BED LOCKED AND AT LOWEST POSITION. CALL LIGHT AND TABLE WITHIN REACH AT ALL TIMES. WILL CONTINUE TO MONITOR PATIENT.
--- NOTE | 2020-12-15 12:25 | NUR ---
MS RN NOTE PATIENT FOR BLOOD TRANSFUSION ORDERED. BLOOD READ AND VERIFIED WITH TATE ZULUAGA. INITIATED BLOOD TRANSFUSION ORDERED. IN STABLE CONDITION. V/S WNL AND RECORDED. WILL CLOSELY MONITOR PATIENT.
[2020-12-15] MEDS ORDERED: FUROSEMIDE 40 MG/4 ML VIAL IV ONE (13:00)
[2020-12-15] MEDS: LEVALBUTEROL HCL NEB 1.25 MG/0.5 ML VIAL.NEB IH SCH ×2 (14:01→15:16)
--- NOTE | 2020-12-15 16:00 | NUR ---
MS RN NOTE COMPLETED BLOOD TRANSFUSION ORDERED. IV FUROSEMIDE GIVEN ORDERED. MD NOTIFIED WITH ORDER TO DISCHARGE PATIENT. IN STABLE CONDITION. COMFORT MEASURES PROVIDED. WILL CONTINUE TO MONITOR PATIENT. AWAITING PICK-UP. HEALTH TEACHING DONE REGARDING DISCHARGE, VERBALIZED UNDERSTANDING AND APPRECIATION. WILL DISCHARGE PATIENT. IN STABLE CONDITION.
--- NOTE | 2020-12-15 16:35 | NUR ---
MS RN NOTE DISCHARGED ORDERED. IN STABLE CONDITION. PATIENT ACCOMPANIED BY NURSE GRANADOS TO LOBBY WITH PRIVATE NURSE VIA WHEELCHAIR. IN STABLE CONDITION. ENDORSED ACCORDINGLY.
[2020-12-18] MEDS ORDERED: POTA-10 PO (13:58)
[2020-12-18] MEDS ORDERED: IPRA0.2S49 NEB (13:58)
[2020-12-18] MEDS ORDERED: FURO40TA5 PO (13:58)
== END 2020-12-15 16:35 | disposition home or self-care (01) | DRG 291 ==
LOC: ER 09:43 → MED 10:55
PROVIDERS: ADMIT Nurse Practitioner Acute Care; ATTEND Nurse Practitioner Acute Care
PROC: 30233N1 Transfusion of Nonautologous Red Blood Cells into Peripheral Vein, Percutaneous Approach (ICD-10-PCS; principal; 2020-12-15)
DX: I13.0 Hypertensive heart and chronic kidney disease with heart failure and stage 1 through stage 4 chronic kidney disease, or unspecified chronic kidney disease (principal); E43 Unspecified severe protein-calorie malnutrition; I50.31 Acute diastolic (congestive) heart failure; N17.9 Acute kidney failure, unspecified; D68.69 Other thrombophilia; N13.30 Unspecified hydronephrosis; E03.9 Hypothyroidism, unspecified; D63.8 Anemia in other chronic diseases classified elsewhere; D72.829 Elevated white blood cell count, unspecified; I48.91 Unspecified atrial fibrillation; J44.9 Chronic obstructive pulmonary disease, unspecified; Z79.82 Long term (current) use of aspirin; Z79.83 Long term (current) use of bisphosphonates; Z79.890 Hormone replacement therapy; Z86.73 Personal history of transient ischemic attack (TIA), and cerebral infarction without residual deficits; Z87.891 Personal history of nicotine dependence; Z96.649 Presence of unspecified artificial hip joint; N18.9 Chronic kidney disease, unspecified; D63.1 Anemia in chronic kidney disease; R33.9 Retention of urine, unspecified; Z87.11 Personal history of peptic ulcer disease; E31.21 Multiple endocrine neoplasia [MEN] type I; E88.09 Other disorders of plasma-protein metabolism, not elsewhere classified; I27.21 Secondary pulmonary arterial hypertension; Z20.822 Contact with and (suspected) exposure to COVID-19; K59.00 Constipation, unspecified; M81.0 Age-related osteoporosis without current pathological fracture; Z88.0 Allergy status to penicillin; I08.0 Rheumatic disorders of both mitral and aortic valves; R91.8 Other nonspecific abnormal finding of lung field; K86.9 Disease of pancreas, unspecified; Z68.22 Body mass index [BMI] 22.0-22.9, adult
CPT/HCPCS: 36415; 71045-TC; 80053-TC; 83735-TC; 83880; 84100-TC; 85025-TC; 86850-TC; 87081-TC; G0378; J1940; J2405; J7040; P9016

== ENCOUNTER 2020-12-24 20:18 | Inpatient (IN) | payer OTHER ==
[~2020-12-24] VITALS: Ht 162.6 cm; Wt 63.5 kg
[~2020-12-24 20:18] MED LIST changes: +FURO40TA5 PO; +LEVA0.6320 IH; -MERO500V23 IV; +POTA-10 PO; -PRED20TA PO
[2020-12-24 21:02] LABS: BASOPHILS # (AUTO) 0.2 K/uL (0.0-0.2); BASOPHILS % (AUTO) 0.5 % (0.0-2.0); EOSINOPHILS % (AUTO) 0.9 % (0.0-6.0); HEMATOCRIT 24 % (33-45); LYMPHOCYTES # (AUTO) 2.4 K/uL (0.8-4.8); LYMPHOCYTES % (AUTO) 7.4 % (20.0-44.0); MEAN CORPUSCULAR HGB CONC 33 g/dl (31.0-36.0); MEAN CORPUSCULAR VOLUME 86 fL (82-100); MONOCYTES # (AUTO) 0.9 K/uL (0.1-1.30); MONOCYTES % (AUTO) 2.8 % (2.0-12.0); NEUTROPHILS # (AUTO) 29.2 K/uL (1.8-8.9); NEUTROPHILS % (AUTO) 88.4 % (43.0-81.0); PLATELET COUNT (AUTO) 684 K/uL (150-450); RED BLOOD CELL COUNT(AUTO) 2.81 MIL/uL (4.0-5.2)
[2020-12-24 21:12] LABS: CARBON DIOXIDE 36 mmol/L (21-32); CHLORIDE 92 mmol/L (98-107); GLUCOSE 133 mg/dL (74-106); POTASSIUM 3.8 mmol/L (3.5-5.1); SODIUM SERUM 131 mmol/L (136-145); UREA NITROGEN, BLOOD 40 mg/dL (7-18)
[2020-12-24 21:20] LABS: BAND % (MANUAL) 3 % (0.0-5.0); EOSINOPHILS % (MANUAL) 1 % (0-4); LYMPHOCYTES % (MANUAL) 3 % (16-48); MONOCYTES % (MANUAL) 2 % (0-11.0); NEUTROPHILS % (MANUAL) 91 (42-76)
[2020-12-24 21:24] LABS: ALANINE AMINOTRANSFERASE 16 U/L (12-78); ALBUMIN 2.4 g/dL (3.4-5.0); ALKALINE PHOSPHATASE 97 U/L (46-116); ASPARTATE AMINOTRANSFERASE 12 U/L (15-37); BILIRUBIN,TOTAL 0.4 mg/dL (0.2-1.0)
[2020-12-24] MEDS ORDERED: MEROPENEM 1 G in IV NS 0.9% 100 ML IV SCH (21:30)
[2020-12-24] MEDS ORDERED: MEROPENEM 500 MG in IV NS 0.9% 50 ML IV SCH (22:00)
--- NOTE | 2020-12-24 22:03 | NUR ---
MRSA SWAB COLLECTED AND SENT TO LAB. PATIENT'S BELONGINGS LIST DONE.
--- NOTE | 2020-12-24 22:15 | NUR ---
awaiting for rapid docid to [place] pt
[2020-12-24] MEDS ORDERED: IV NS 0.9% 1,000 ML IV PRN (23:30)
[2020-12-24] MEDS ORDERED: ACETAMINOPHEN 325 MG TABLET PO PRN (23:30)
--- NOTE | 2020-12-24 23:33 | NUR ---
REPORT GIVEN TATE GREGORY
[2020-12-25 00:05] VITALS: BP 104/40
[2020-12-25] MEDS: ALBUTEROL HALF STRENGTH 1.25 MG/3 ML VIAL.NEB NEB SCH ×4 (00:19→19:51)
[2020-12-25] MEDS ORDERED: MEROPENEM 500 MG VIAL IV ONE (01:13)
[2020-12-25] MEDS: LEVALBUTEROL HCL NEB 1.25 MG/0.5 ML VIAL.NEB NEB PRN (03:47)
--- NOTE | 2020-12-25 03:55 | NUR ---
RT called for PRN breathing treatment for wheezing and excess secretions which patient has had a hard time coughing up. Already attempted suctioning.
--- NOTE | 2020-12-25 04:28 | NUR ---
ADMISSION NOTES Patient admitted at 0005. alert to loud noise or touch and oriented to person when asked. Can follow simple commands. Patient is lethargic at this time sleeping waking when asked questions then falling back to sleep. O2 stays above 90% on 3L O2 via simple face mask d/t patient is a mouth breather. Sr/SB borderline on monitor 55-65bpm. Patient can move extremities but is weak. Incontinent of bowel and bladder. Heart rate and rhythm regular. Breath sounds coarse and diminished in lower lobes. KVNG midline flushed and patent. Only skin issues are scab to L monique, discoloration to bilateral hands. Patient's private nurse is at bedside. Oriented both to unit protocols, call light, bed alarm. Started patient on continuous pulse oximetry to monitor closely.
[2020-12-25 05:06] LABS: ABG BASE EXCESS 9.3 mmol/L; ABG PCO2 67.7 mmHg (35.0-45.0); ABG PH 7.347 (7.350-7.450); ABG PO2 101.5 mmHg (75.0-100.0); AaDO2 105.8 mmHg; COHb 1.1 % (0.5-1.5); MetHb 0.3 % (0.0-1.5); O2Hb 95.6 % (94.0-97.0); SITE, ABG Right Radial; VENT MODE, BG SM
--- NOTE | 2020-12-25 05:20 | NUR ---
Patient had episode of desaturation despite being suctioned and given PRN breathing treatments. O2 in low 80s. Once patient woke up O2 sats went up to high 90s. STAT ABGs done pCO2 critical 67.7. DNP on-call ordered transfer to ICU. awaiting ICU bed. Patient currently awake and saturation continues in high 90s.
--- NOTE | 2020-12-25 05:22 | NUR ---
Patient and DNP spoke with Era, daughter. updated on situation
--- NOTE | 2020-12-25 05:44 | NUR ---
Patient is now A&Ox3. Bipap brought by RT. Nathalia Bolden DNP at bedside in addition to patient's private nurse. continue to monitor. Addendum: 12/25/20 at 0546 by BRI STYLES RN okay to hold off on ICU transfer as patient will only need Bipap during next few sleeping hours and Kimi RIVERA is at bedside.
[2020-12-25] MEDS: ACETYLCYSTEINE 20% SOLN 800 MG/4 ML VIAL NEB SCH ×4 (05:48→23:09)
--- NOTE | 2020-12-25 05:50 | NUR ---
RT NOTE CALLED TO PT ROOM FOR DESATURATION. ABG DRAWN AND RESULTS GIVEN TO JOANIE PORTILLO. PT THEN PLACED ON BIPAP W ORDERED SETTINGS OF 15/5 30% RR 16. PT IS GUILLAUME WELL. NO RESP DISTRESS NOTED @ THIS TIME. WILL CONTINUE TO MONITOR.
--- NOTE | 2020-12-25 06:38 | NUR ---
CLOSING NOTES Patient is currently A&Ox3, alert to name easy to wake and stay awake. Satting 99% on 3L tolerating Bipap well. Family member at bedside and private nurse.
--- NOTE | 2020-12-25 06:50 | NUR ---
Pt. is awake and alert placed into nasal cannula @ 1 lpm Oxygen flow. pt. instructed to do breathing exercise with family @ bedside. spo2 98% and no increase work of breathing noted. bipap on stand by @ bedside. Addendum: 12/25/20 at 0714 by CHELSY HEARN RT Amended: Links added.
[2020-12-25] MEDS ORDERED: LEVOTHYROXINE SODIUM 112 MCG TABLET PO SCH (07:30)
[2020-12-25 07:47] LABS: BASOPHILS # (AUTO) 0.1 K/uL (0.0-0.2); BASOPHILS % (AUTO) 0.3 % (0.0-2.0); EOSINOPHILS % (AUTO) 1.7 % (0.0-6.0); HEMATOCRIT 22 % (33-45); HEMOGLOBIN 7.1 g/dL (11.5-14.8); LYMPHOCYTES # (AUTO) 3.6 K/uL (0.8-4.8); MEAN CORPUSCULAR HGB CONC 32 g/dl (31.0-36.0); MEAN CORPUSCULAR VOLUME 87 fL (82-100); MONOCYTES # (AUTO) 1.3 K/uL (0.1-1.30); MONOCYTES % (AUTO) 3.9 % (2.0-12.0); NEUTROPHILS # (AUTO) 27.6 K/uL (1.8-8.9); NEUTROPHILS % (AUTO) 83.1 % (43.0-81.0); PLATELET COUNT (AUTO) 508 K/uL (150-450); RED BLOOD CELL COUNT(AUTO) 2.54 MIL/uL (4.0-5.2)
[2020-12-25 08:00] VITALS: BP 118/95
--- NOTE | 2020-12-25 08:00 | NUR ---
RN NOTES RT AT BEDSIDE FOR ABG.
[2020-12-25 08:04] LABS: ABG BASE EXCESS 10.3 mmol/L; ABG OXYGEN SATURATION 89.1 % (92.0-98.5); ABG PCO2 56.1 mmHg (35.0-45.0); ABG PH 7.424 (7.350-7.450); ABG PO2 53.7 mmHg (75.0-100.0); AaDO2 50.7 mmHg; COHb 1.3 % (0.5-1.5); MetHb 0.3 % (0.0-1.5); O2Hb 87.7 % (94.0-97.0); SITE, ABG Right Radial; VENT MODE, BG NASAL CANNULA
[2020-12-25 08:15] LABS: CALCIUM, SERUM 8.4 mg/dL (8.5-10.1); CARBON DIOXIDE 35 mmol/L (21-32); CHLORIDE 94 mmol/L (98-107); CREATININE 2.3 mg/dL (0.6-1.3); GLUCOSE 118 mg/dL (74-106); MAGNESIUM 2.8 mg/dL (1.8-2.4); POTASSIUM 3.7 mmol/L (3.5-5.1); SODIUM SERUM 133 mmol/L (136-145); UREA NITROGEN, BLOOD 44 mg/dL (7-18); WHITE BLOOD COUNT (AUTO) 33.1 K/uL (4.3-11.0)
[2020-12-25] MEDS: PANTOPRAZOLE 40 MG TABLET.DR PO SCH (08:17)
[2020-12-25] MEDS: LEVOTHYROXINE SODIUM 100 MCG TABLET PO SCH (08:18)
[2020-12-25] MEDS: CHOLECALCIFEROL 1,000 UNIT TABLET (VIT D3) PO SCH (08:37)
[2020-12-25] MEDS: BETHANECHOL CHLORIDE (10 MG) 10 MG TABLET PO SCH ×3 (08:37→16:15)
[2020-12-25] MEDS: VITAMIN B COMP W-C 1 TAB TABLET PO SCH (08:37)
[2020-12-25] MEDS: ASPIRIN 81 MG TAB.CHEW PO SCH (08:37)
[2020-12-25] MEDS: DILTIAZEM HCL CD 240 MG PO SCH (08:38)
[2020-12-25] MEDS: AMIODARONE HCL 200 MG TABLET PO SCH (08:39)
[2020-12-25 08:40] LABS: TRIGLYCERIDES 77 mg/dL (30-150)
[2020-12-25 08:41] LABS: CHOLESTEROL 98 mg/dL (<200); HDL CHOLESTEROL 49 mg/dL (40-60); LDL 34 mg/dL (0-99)
--- NOTE | 2020-12-25 11:00 | NUR ---
RN NOTES DR. NAIR AT BEDSIDE TO SEE THE PATIENT. PER DR. NAIR, RECOMMENDED TO HOLD OFF ON THE BT FOR NOW. SPOKE W/ NAVJOT, TATE, AND PATIENT AT BEDSIDE ABOUT BT AND REQUESTED IF BT CAN BE DONE TOMORROW INSTEAD.
[2020-12-25] MEDS: MEROPENEM 500 MG in IV NS 0.9% 50 ML IV SCH (12:43)
[2020-12-25 12:44] LABS: BAND % (MANUAL) 1 % (0.0-5.0); EOSINOPHILS % (MANUAL) 2 % (0-4); LYMPHOCYTES % (MANUAL) 8 % (16-48); MONOCYTES % (MANUAL) 2 % (0-11.0); NEUTROPHILS % (MANUAL) 87 (42-76)
--- NOTE | 2020-12-25 16:20 | NUR ---
RN NOTES SPOKE W/ PATIENT AND NAVJOT AT BEDSIDE REGARDING BLOOD TRANSFUSION; PER PATIENT'S REQUEST, WILL DO BLOOD TRANSFUSION TOMORROW.
--- NOTE | 2020-12-25 17:03 | NUR ---
RN NOTES RECEIVED ORDER FROM DR. NAIR TO START AZITHROMYCIN 500MG IV DAILY, NOTED AND CARRIED OUT.
--- NOTE | 2020-12-25 18:18 | NUR ---
RN NOTES OK FOR DR. NAIR TO START AZITHROMYCIN IV PER SAAD FROM PHARMACY.
[2020-12-25] MEDS: AZITHROMYCIN 500 MG in IV D5W 250 ML IV SCH (18:23)
--- NOTE | 2020-12-25 19:11 | NUR ---
RN NOTES PATIENT IN BED, RESTING, A/OX3 O2@2LPM VIA N/C, SPO2 98%. BREATHING EVEN AND UNLABORED, NO SOB NOTED. ON TELE MONITOR, SR @60'S. ALL DUE MEDS GIVEN, TOLERATED WELL. ML ON LEFT UPPER ARM PATENT AND INTACT. NS @50CC/HR INFUSING WELL. PRIVATE NURSE AT BEDSIDE. SAFETY MEASURES PROVIDED. BED ON ITS LOWEST POSITION, BED LOCKED, SIDE RAILS UP, CALL LIGHT AND TABLE PLACED WITHIN EASY REACH. WILL CONTINUE TO MONITOR.
[2020-12-25 20:00] VITALS: BP 104/40
[2020-12-25] MEDS: POLYETHYLENE GLYCOL 3350 17 GM POWD.PACK PO SCH (22:26)
[2020-12-25] MEDS: ATORVASTATIN 10 MG TABLET PO SCH (22:26)
[2020-12-25 22:58] VITALS: BP 110/41
[2020-12-25 23:15] VITALS: BP 108/44
--- NOTE | 2020-12-25 23:24 | NUR ---
RT NOTE PLACED PT ON VENTURI MASK @ 28% ON 6LPM. PT IS COMFORTABLE AT THIS TIME. NO RESPIRATORY DISTRESS NOTED. CONT. PULSE OX CONNECTED. WILL CONTINUE TO MONITOR CLOSELY.
[2020-12-25 23:30] VITALS: BP 99/43
[2020-12-26 00:35] VITALS: BP 109/44
[2020-12-26 02:05] VITALS: BP 116/55
--- NOTE | 2020-12-26 02:05 | NUR ---
1 unit pRBCs Transfusion completed. Patient alert VSS, no adverse reaction.
[2020-12-26] MEDS: MEROPENEM 500 MG in IV NS 0.9% 50 ML IV SCH ×2 (02:06→12:27)
--- NOTE | 2020-12-26 03:33 | NUR ---
RT NOTE PT CURRENTLY ON 28% NASAL CANNULA AND SLEEPING WELL. SPO2 90-92%. NO RESPIRATORY DISTRESS NOTED. BIPAP STANDBY. WILL MONITOR.
--- NOTE | 2020-12-26 04:47 | NUR ---
Patient has been comfortable on bedrest. Sleeping intermittently throughout the night. x1 episode of desaturation while sleeping but once awake and repositioned patient's O2 has been steady 89-94% on 2L NC. Patient did not want skin pictures retaken since pictures were taken just last night upon admission. Only issue still radha. hand discoloration and L monique scab. Tolerating IV ABX well. No signs of distress.
--- NOTE | 2020-12-26 04:53 | NUR ---
Patient reports feeling minimally SOB stating she would like a breathing treatment. RT called for PRN
--- NOTE | 2020-12-26 04:54 | NUR ---
Pt O2 96% currently and breathing appears relatively unlabored.
[2020-12-26] MEDS: LEVALBUTEROL HCL NEB 1.25 MG/0.5 ML VIAL.NEB NEB PRN (05:02)
[2020-12-26 06:59] LABS: BASOPHILS # (AUTO) 0.1 K/uL (0.0-0.2); BASOPHILS % (AUTO) 0.3 % (0.0-2.0); EOSINOPHILS % (AUTO) 5.9 % (0.0-6.0); HEMATOCRIT 24 % (33-45); HEMOGLOBIN 7.9 g/dL (11.5-14.8); LYMPHOCYTES # (AUTO) 3.6 K/uL (0.8-4.8); LYMPHOCYTES % (AUTO) 14.9 % (20.0-44.0); MEAN CORPUSCULAR HGB CONC 33 g/dl (31.0-36.0); MEAN CORPUSCULAR VOLUME 87 fL (82-100); MONOCYTES # (AUTO) 1.4 K/uL (0.1-1.30); MONOCYTES % (AUTO) 5.7 % (2.0-12.0); NEUTROPHILS # (AUTO) 17.9 K/uL (1.8-8.9); NEUTROPHILS % (AUTO) 73.2 % (43.0-81.0); PLATELET COUNT (AUTO) 464 K/uL (150-450); RED BLOOD CELL COUNT(AUTO) 2.79 MIL/uL (4.0-5.2); WHITE BLOOD COUNT (AUTO) 24.5 K/uL (4.3-11.0)
[2020-12-26 07:32] LABS: IRON, SERUM 30 ug/dl (50-175); TOTAL IRON BINDING CAPACITY 147 ug/dl (250-450)
[2020-12-26] MEDS: ALBUTEROL HALF STRENGTH 1.25 MG/3 ML VIAL.NEB NEB SCH ×3 (07:35→19:33)
--- NOTE | 2020-12-26 07:49 | NUR ---
RN NOTES PATIENT IN BED, AWAKE, A/OX3 O2@2LPM VIA N/C, SPO2 96%. BREATHING EVEN AND UNLABORED, NO SOB NOTED. ON TELE MONITOR, SR @60'S. ML ON LEFT UPPER ARM PATENT AND INTACT. PRIVATE NURSE AT BEDSIDE. SAFETY MEASURES PROVIDED. BED ON ITS LOWEST POSITION, BED LOCKED, SIDE RAILS UP, CALL LIGHT AND TABLE PLACED WITHIN EASY REACH. WILL CONTINUE TO MONITOR.
[2020-12-26 07:56] LABS: FERRITIN 585 ng/mL (8-388); THYROID STIMULATING HORMONE 2.202 uIU/mL (0.358-3.74)
[2020-12-26] MEDS ORDERED: ALENDRONATE 70 MG TABLET PO SCH (08:00)
[2020-12-26 08:09] LABS: ALANINE AMINOTRANSFERASE 14 U/L (12-78); ALBUMIN 2.1 g/dL (3.4-5.0); ALKALINE PHOSPHATASE 83 U/L (46-116); ASPARTATE AMINOTRANSFERASE 16 U/L (15-37); BILIRUBIN,TOTAL 0.2 mg/dL (0.2-1.0); CALCIUM, SERUM 8.3 mg/dL (8.5-10.1); CARBON DIOXIDE 34 mmol/L (21-32); CHLORIDE 93 mmol/L (98-107); CREATININE 2.6 mg/dL (0.6-1.3); GLUCOSE 133 mg/dL (74-106); POTASSIUM 3.7 mmol/L (3.5-5.1); SODIUM SERUM 134 mmol/L (136-145); TOTAL PROTEIN, SERUM 5.2 g/dL (6.4-8.2); UREA NITROGEN, BLOOD 47 mg/dL (7-18)
[2020-12-26] MEDS: LEVOTHYROXINE SODIUM 100 MCG TABLET PO SCH (08:28)
[2020-12-26] MEDS: BETHANECHOL CHLORIDE (10 MG) 10 MG TABLET PO SCH ×3 (08:28→16:31)
[2020-12-26] MEDS: PANTOPRAZOLE 40 MG TABLET.DR PO SCH (08:28)
[2020-12-26] MEDS: CHOLECALCIFEROL 1,000 UNIT TABLET (VIT D3) PO SCH (08:28)
[2020-12-26] MEDS: ASPIRIN 81 MG TAB.CHEW PO SCH (08:28)
[2020-12-26] MEDS: AMIODARONE HCL 200 MG TABLET PO SCH (08:29)
[2020-12-26] MEDS: VITAMIN B COMP W-C 1 TAB TABLET PO SCH (08:29)
[2020-12-26] MEDS: DILTIAZEM HCL CD 240 MG PO SCH (08:30)
[2020-12-26 08:31] VITALS: BP 116/46
--- NOTE | 2020-12-26 08:40 | NUR ---
RN NOTES PLASTICS FITTER AT BEDSIDE FOR PELVIC US; PER PLASTICS FITTER, PATIENT REFUSED TRANSVAGINAL PART OF THE US SO VIEW IS LIMITED.
[2020-12-26 08:46] LABS: CALCIUM, SERUM 8.3 mg/dL (8.5-10.1); CARBON DIOXIDE 30 mmol/L (21-32); CHLORIDE 92 mmol/L (98-107); CREATININE 2.3 mg/dL (0.6-1.3); GLUCOSE 134 mg/dL (74-106); PHOSPHORUS 5.4 mg/dL (2.5-4.9); POTASSIUM 3.6 mmol/L (3.5-5.1); SODIUM SERUM 130 mmol/L (136-145); UREA NITROGEN, BLOOD 48 mg/dL (7-18)
[2020-12-26] MEDS: SENNOSIDES/DOCUSATE SODIUM 1 TAB TABLET PO SCH (09:53)
[2020-12-26] MEDS: POLYETHYLENE GLYCOL 3350 17 GM POWD.PACK PO SCH ×3 (10:37→22:32)
[2020-12-26 12:00] VITALS: BP 120/57
[2020-12-26] MEDS: ENSURE ENLIVE 237 ML LIQUID (VANILLA) PO SCH ×2 (15:14→17:09)
[2020-12-26 16:00] VITALS: BP 114/40
[2020-12-26] MEDS ORDERED: FLUT1BLS6 IH (16:38)
[2020-12-26] MEDS ORDERED: MERO500P IV (16:38)
[2020-12-26] MEDS: AZITHROMYCIN 500 MG in IV D5W 250 ML IV SCH (18:09)
--- NOTE | 2020-12-26 18:38 | NUR ---
RN NOTES PATIENT IN BED, AWAKE, WATCHING TV, DAUGHTER AND PRIVATE NURSE AT BEDSIDE A/OX3. ON O2 @2LPM VIA N/C, SPO2 98%. BREATHING EVEN AND UNLABORED, NO SOB NOTED. ON TELE MONITOR, SR @70'S. ALL DUE MEDS GIVEN, TOLERATED WELL. MIDLINE ON LEFT UPPER ARM PATENT AND INTACT. SAFETY MEASURES PROVIDED. BED ON ITS LOWEST POSITION, BED LOCKED, SIDE RAILS UP, CALL LIGHT AND TABLE PLACED WITHIN EASY REACH. WILL CONTINUE TO MONITOR. WILL ENDORSE TO NEXT SHIFT.
--- NOTE | 2020-12-26 19:34 | NUR ---
RT NOTE PT CURRENTLY AWAKE AND ON 28% NASAL CANNULA. TX GIVEN. PTS SPO2 95-97%. NO ACUTE RESPIRATORY DISTRESS NOTED. BIPAP ON STANDBY. WILL CONTINUE TO MONITOR T/O SHIFT.
--- NOTE | 2020-12-26 19:58 | NUR ---
DINING SERVICE SUPERVISOR OPENING NOTES PATIENT IN BED, AWAKE, WATCHING TV, PRIVATE NURSE AT BEDSIDE. A/OX3.ON OXYGEN VIA NASAL CANNULA 2 L/MIN. NO SOB NOTED. NO S/SX OF RESPIRATORY DISTRESS NOTED. TELE MONITOR DETECTS SINUS RHYTHM WITH 1ST DEGREE AV BLOCK WITH RATE OF 69. IV ACCESS IN KVNG MIDLINE. IV IS INTACT, PATENT, AND FLUSHING WELL. SAFETY MEASURES IN PLACE: BED IN LOWEST, LOCKED POSITION, BRAKES ON, SIDERAILS UPx2. TABLE AND CALL LIGHT WITHIN REACH. WILL CONTINUE TO MONITOR.
[2020-12-26 20:26] VITALS: BP 119/58
[2020-12-26] MEDS: ATORVASTATIN 10 MG TABLET PO SCH (22:13)
[2020-12-26] MEDS ORDERED: AZIT250T13 PO (22:38)
[2020-12-27] MEDS: MEROPENEM 500 MG in IV NS 0.9% 50 ML IV SCH (00:21)
--- NOTE | 2020-12-27 06:40 | NUR ---
MARKETING STRATEGY LEAD CLOSING NOTES PATIENT IN BED, AWAKE, WATCHING TV, PRIVATE NURSE AT BEDSIDE. A/OX3. ABLE TO MAKE NEEDS KNOWN. ON OXYGEN VIA NASAL CANNULA 2 L/MIN. NO SOB NOTED. NO S/SX OF RESPIRATORY DISTRESS NOTED. TELE MONITOR DETECTS SINUS RHYTHM WITH 1ST DEGREE AV BLOCK WITH RATE OF 65-75. IV ACCESS IN KVNG MIDLINE. IV IS INTACT, PATENT, AND FLUSHING WELL. ALL NEEDS MET. PT KEPT CLEAN AND DRY. SAFETY MEASURES IN PLACE: BED IN LOWEST, LOCKED POSITION, BRAKES ON, SIDERAILS UPx2. TABLE AND CALL LIGHT WITHIN REACH. WILL ENDORSE TO ONCOMING SHIFT.
[2020-12-27 06:54] LABS: BASOPHILS # (AUTO) 0.1 K/uL (0.0-0.2); BASOPHILS % (AUTO) 0.6 % (0.0-2.0); EOSINOPHILS % (AUTO) 5.7 % (0.0-6.0); HEMATOCRIT 25 % (33-45); HEMOGLOBIN 8.2 g/dL (11.5-14.8); LYMPHOCYTES # (AUTO) 3.8 K/uL (0.8-4.8); LYMPHOCYTES % (AUTO) 18.7 % (20.0-44.0); MEAN CORPUSCULAR HGB CONC 33 g/dl (31.0-36.0); MEAN CORPUSCULAR VOLUME 86 fL (82-100); MONOCYTES # (AUTO) 1.9 K/uL (0.1-1.30); MONOCYTES % (AUTO) 9.5 % (2.0-12.0); NEUTROPHILS # (AUTO) 13.2 K/uL (1.8-8.9); NEUTROPHILS % (AUTO) 65.5 % (43.0-81.0); PLATELET COUNT (AUTO) 432 K/uL (150-450); RED BLOOD CELL COUNT(AUTO) 2.89 MIL/uL (4.0-5.2); WHITE BLOOD COUNT (AUTO) 20.2 K/uL (4.3-11.0)
[2020-12-27 07:42] LABS: CALCIUM, SERUM 8.1 mg/dL (8.5-10.1); CARBON DIOXIDE 33 mmol/L (21-32); CHLORIDE 93 mmol/L (98-107); GLUCOSE 127 mg/dL (74-106); MAGNESIUM 2.6 mg/dL (1.8-2.4); PHOSPHORUS 4.4 mg/dL (2.5-4.9); POTASSIUM 3.6 mmol/L (3.5-5.1); SODIUM SERUM 132 mmol/L (136-145); UREA NITROGEN, BLOOD 42 mg/dL (7-18)
--- NOTE | 2020-12-27 07:45 | NUR ---
RN NOTES PATIENT IN BED, AWAKE, A/OX3, EATING BREAKFAST. ON O2 @2LPM VIA N/C, SPO2. BREATHING EVEN AND UNLABORED, NO SOB NOTED. ML ON LEFT UPPER ARM PATENT AND INTACT. PRIVATE NURSE AT BEDSIDE. SAFETY MEASURES PROVIDED. BED ON ITS LOWEST POSITION, BED LOCKED, SIDE RAILS UP, CALL LIGHT AND TABLE PLACED WITHIN EASY REACH. WILL CONTINUE TO MONITOR.
[2020-12-27 08:06] LABS: AFP, TUMOR MARKER 4.8 ng/mL (0.0-8.3); CANCER AG, 125 29.6 U/mL (0.0-38.1); CARBOHYDRATE AG 19-9 15 U/mL (0-35); IMMUNOGLOBULIN A, SERUM 45 mg/dL (64-422); IMMUNOGLOBULIN G, SERUM 488 mg/dL (586-1602); IMMUNOGLOBULIN M, SERUM 90 mg/dL (26-217)
[2020-12-27] MEDS: ALBUTEROL HALF STRENGTH 1.25 MG/3 ML VIAL.NEB NEB SCH ×2 (08:06→11:02)
[2020-12-27] MEDS: PANTOPRAZOLE 40 MG TABLET.DR PO SCH (08:08)
[2020-12-27] MEDS: LEVOTHYROXINE SODIUM 100 MCG TABLET PO SCH (08:08)
[2020-12-27] MEDS: ENSURE ENLIVE 237 ML LIQUID (VANILLA) PO SCH (08:09)
[2020-12-27] MEDS: VITAMIN B COMP W-C 1 TAB TABLET PO SCH (08:17)
[2020-12-27] MEDS: BETHANECHOL CHLORIDE (10 MG) 10 MG TABLET PO SCH (08:17)
[2020-12-27] MEDS: ASPIRIN 81 MG TAB.CHEW PO SCH (08:17)
[2020-12-27] MEDS: CHOLECALCIFEROL 1,000 UNIT TABLET (VIT D3) PO SCH (08:17)
[2020-12-27] MEDS: DILTIAZEM HCL CD 240 MG PO SCH (08:17)
[2020-12-27] MEDS: SENNOSIDES/DOCUSATE SODIUM 1 TAB TABLET PO SCH (08:17)
[2020-12-27] MEDS: AMIODARONE HCL 200 MG TABLET PO SCH (08:18)
--- NOTE | 2020-12-27 08:33 | NUR ---
RN NOTES DR. NAIR AT BEDSIDE TO SEE THE PATIENT.
[2020-12-27 09:16] VITALS: BP 126/52
[2020-12-27] MEDS ORDERED: OCTR30VI3 IM (10:13)
--- NOTE | 2020-12-27 10:24 | NUR ---
RN NOTES PER DR. NAIR, PATIENT IS FOR DISCHARGE TO HOME TODAY. WILL SET-UP TRANSPO PER CM.
[2020-12-27] MEDS ORDERED: HYDR-4077 PO (11:00)
--- NOTE | 2020-12-27 11:03 | NUR ---
RT PRN tx given per MD orders
--- NOTE | 2020-12-27 12:00 | NUR ---
RN NOTES PATIENT WAS SEEN BY DR. NAIR W/ ORDER FOR DISCHARGE TO HOME W/ SHEAR ASSEMBLER. DISCHARGE INSTRUCTION AND EDUCATION PROVIDED TO PATIENT AND RN AT BEDSIDE. DISCHARGE FORM AND BELONGINGS LIST FORM SIGNED BY PATIENT AND ALL BELONGINGS ACCOUNTED FOR. KVNG MIDLINE KEPT INTACT FOR CONTINUATION OF IV ATB. PHOTOS OF SKIN ISSUE DEFERRED PER PATIENT REQUEST. PICKED UP BY 2 EMT'S VIA GURTOREY ACCOMPANIED BY RN CAREGIVER. CHARGE NURSE AND MD AWARE OF DISCHARGE.
[2020-12-27 13:06] LABS: *SPE ALPHA-1-GLOBULIN 0.4 g/dL (0.0-0.4); *SPE ALPHA-2-GLOBULIN 0.7 g/dL (0.4-1.0); *SPE BETA GLOBULIN 0.6 g/dL (0.7-1.3); *SPE M-SPIKE Not Observed g/dL (Not Observed)
== END 2020-12-27 12:08 | disposition home or self-care (01) | DRG 871 ==
LOC: ER 20:19 → TELE 21:16 → MED 23:56 → TELE 12-25 04:23
PROVIDERS: ADMIT Nurse Practitioner Acute Care; ATTEND Nurse Practitioner Acute Care
PROC: 05HB33Z Insertion of Infusion Device into Right Basilic Vein, Percutaneous Approach (ICD-10-PCS; 2020-12-24)
PROC: 30233N1 Transfusion of Nonautologous Red Blood Cells into Peripheral Vein, Percutaneous Approach (ICD-10-PCS; principal; 2020-12-25)
DX: A41.50 Gram-negative sepsis, unspecified (principal); I50.33 Acute on chronic diastolic (congestive) heart failure; J96.21 Acute and chronic respiratory failure with hypoxia; N17.0 Acute kidney failure with tubular necrosis; J96.22 Acute and chronic respiratory failure with hypercapnia; E43 Unspecified severe protein-calorie malnutrition; G93.41 Metabolic encephalopathy; I21.4 Non-ST elevation (NSTEMI) myocardial infarction; J69.0 Pneumonitis due to inhalation of food and vomit; I13.0 Hypertensive heart and chronic kidney disease with heart failure and stage 1 through stage 4 chronic kidney disease, or unspecified chronic kidney disease; J44.0 Chronic obstructive pulmonary disease with (acute) lower respiratory infection; J44.1 Chronic obstructive pulmonary disease with (acute) exacerbation; D68.59 Other primary thrombophilia; N39.0 Urinary tract infection, site not specified; C7B.8 Other secondary neuroendocrine tumors; Z16.24 Resistance to multiple antibiotics; Z16.12 Extended spectrum beta lactamase (ESBL) resistance; N18.9 Chronic kidney disease, unspecified; I48.91 Unspecified atrial fibrillation; Z88.2 Allergy status to sulfonamides; Z88.8 Allergy status to other drugs, medicaments and biological substances; Z79.51 Long term (current) use of inhaled steroids; Z79.82 Long term (current) use of aspirin; Z79.899 Other long term (current) drug therapy; I08.0 Rheumatic disorders of both mitral and aortic valves; D63.8 Anemia in other chronic diseases classified elsewhere; Z20.822 Contact with and (suspected) exposure to COVID-19; I70.0 Atherosclerosis of aorta; Z99.81 Dependence on supplemental oxygen; Z96.649 Presence of unspecified artificial hip joint; Z95.818 Presence of other cardiac implants and grafts; Z86.19 Personal history of other infectious and parasitic diseases; Z79.890 Hormone replacement therapy; Z79.83 Long term (current) use of bisphosphonates; Z86.73 Personal history of transient ischemic attack (TIA), and cerebral infarction without residual deficits; Z87.11 Personal history of peptic ulcer disease; Z87.440 Personal history of urinary (tract) infections; Z87.891 Personal history of nicotine dependence; E31.21 Multiple endocrine neoplasia [MEN] type I; I27.21 Secondary pulmonary arterial hypertension; K59.00 Constipation, unspecified; F32.A Depression, unspecified; D75.839 Thrombocytosis, unspecified; D25.9 Leiomyoma of uterus, unspecified; D3A.00 Benign carcinoid tumor of unspecified site; R19.09 Other intra-abdominal and pelvic swelling, mass and lump; K86.9 Disease of pancreas, unspecified; R59.0 Localized enlarged lymph nodes; N26.1 Atrophy of kidney (terminal)
CPT/HCPCS: 36415; 36600; 71045-TC; 76770-TC; 76856-TC; 80048-TC; 80053-TC; 80061-TC; 82105; 82378; 82728-TC; 82784; 82803-TC; 83540-TC; 83605-TC; 83615-TC; 83735-TC; 83880; 84100-TC; 84155; 84165; 84443-TC; 84484-TC; 85025-TC; 85730-TC; 86301; 86304; 86334; 86850-TC; 87040-TC; 87081-TC; 87186-TC; 94660; 94799-TC; 97112-TC; 97530-TC; G0378; J0456; J2185; J7030; J7040; J7050; J7060; P9016

== ENCOUNTER 2021-05-25 12:10 | Outpatient (CLI) | payer OTHER ==
[~2021-05-25 12:10] MED LIST changes: +AZIT250T13 PO; +FLUT1BLS6 IH; +HYDR-4077 PO; +MERO500P IV; +OCTR30VI3 IM; -TIOT4MIS5 IH
== END 2021-05-25 23:59 | disposition home or self-care (01) ==
LOC: CT 12:10
PROVIDERS: ATTEND Nurse Practitioner Acute Care
DX: J43.9 Emphysema, unspecified (principal); J84.9 Interstitial pulmonary disease, unspecified; R91.8 Other nonspecific abnormal finding of lung field; J98.11 Atelectasis; J90 Pleural effusion, not elsewhere classified; K86.89 Other specified diseases of pancreas; D17.79 Benign lipomatous neoplasm of other sites; N26.1 Atrophy of kidney (terminal); N85.2 Hypertrophy of uterus; M47.819 Spondylosis without myelopathy or radiculopathy, site unspecified
CPT/HCPCS: 71250-TC

== ENCOUNTER 2021-06-26 21:27 | Inpatient (IN) | payer OTHER ==
[~2021-06-26] VITALS: Ht 165.1 cm; Wt 62.6 kg
--- NOTE | 2021-06-26 21:50 | NUR ---
L HAND #18G S/L; PATENT AND INTACT. BLOOD COLLECTED AND GIVEN TO LAB
--- NOTE | 2021-06-26 21:50 | NUR ---
KURTIS SENT IN BY PMD FOR BLOOD TRANSFUSION HBG 6.6. PT A/OX4. TOLERATING O2 2LPM VIA N/C WELL WITH NO SOB. CONNECTED PT TO POX AND MONITOR.
--- NOTE | 2021-06-26 21:51 | NUR ---
PT AGREED AND SIGNED CONSENT FOR BLOOD TRANSFUSION; VERBALIZED UNDERSTANDING.
--- NOTE | 2021-06-26 21:52 | NUR ---
COVID ANTIGEN SWAB COLLECTED AND SENT TO LAB
--- NOTE | 2021-06-26 21:55 | NUR ---
ms [id number]
[2021-06-26] MEDS ORDERED: ACETAMINOPHEN 325 MG TABLET PO PRN (22:00)
[2021-06-26] MEDS ORDERED: ONDANSETRON HCL/PF 4 MG/2 ML VIAL IVP PRN (22:00)
--- NOTE | 2021-06-26 22:29 | NUR ---
REPORT GIVEN TO IVAN Louie RN FOR KULDEEP
--- NOTE | 2021-06-26 22:52 | NUR ---
CALLED LAB TO F/U WITH COVID RESULT
--- NOTE | 2021-06-26 23:52 | NUR ---
PT TRANSFERRING TO 3W VIA HOSPITAL PROTOCOL. ALL BELONGINGS WITH PT.
[2021-06-26 23:55] VITALS: BP 128/63
--- NOTE | 2021-06-26 23:55 | NUR ---
CAMILLA RECEIVED FROM ER AN 85 Y/O FEMALE WITH DIAGNOSIS OF ANEMIA. CAME FOR BLOOD TRANSFUSION NEED 2 UNITS PRBC. NO ACTIVE BLEEDING OF THIS TIME. PT ACCPD BY OWN CAREGIVER. A/OX4 PLACED TO BED COMFORTABLY, ORIENTED TO ROOM FACILITY. PATIENT ON 2 L VIA NC. 94 TO 95% SATURATION. ALL NEEDS ATTENDED. KEPT COMFORTABLE. TO CONTINUE.
[2021-06-27] VITALS (8 sets, daily range): BP systolic 126–163; BP diastolic 62–94
[2021-06-27] MEDS ORDERED: HOME MED MISCELLANEOUS XX SCH ×4 (00:30)
--- NOTE | 2021-06-27 00:50 | NUR ---
MSRN FIRST UNIT OF PRBC STARTED. STAYED WITH PATIENT FOR 15 MINS FOR POSSIBLE TRANSFUSION REACTION. V/S STABLE.
--- NOTE | 2021-06-27 01:10 | NUR ---
MSRN NO TRANSFUSION REACTION. RATE INCREASED TO 110 CC/HR INFUSING VIA LEFT HAND HL. V/S MONITORED. CLOSELY WATCHED.
--- NOTE | 2021-06-27 02:15 | NUR ---
MSRN REQUESTED SNACKS. JELLO AND PUDDINGS OFFERED, ASSISTED BY CAREGIVER. ATE FAIRLY.
--- NOTE | 2021-06-27 03:35 | NUR ---
MSRN FIRST UNIT CONSUMED WITHOUT ANY REACTION, V/S STABLE.
--- NOTE | 2021-06-27 03:55 | NUR ---
MSRN 2ND UNIT STARTED, NO TRANSFUSION REACTION AFTER 15 MINUTES. V/S REMAINS STABLE.
--- NOTE | 2021-06-27 04:40 | NUR ---
MSRN HAD LARGE BM. CAREGIVER ASSISTED. TOTAL BED LINEN CHANGE. REPOSITIONED FOR COMFORT. KEPT DRY AND CLEAN. CLOSELY WATCHED.
[2021-06-27] MEDS ORDERED: LEVOTHYROXINE SODIUM 100 MCG TABLET PO SCH (07:00)
--- NOTE | 2021-06-27 07:00 | NUR ---
NSRN BLOOD TRANSFUSION DONE, TOLERATED WELL. SEEN BY DR. EPSTEIN. V/S STABLE. NO OTHER NEEDS MADE. CAREGIVER AT BEDSIDE.
[2021-06-27] MEDS ORDERED: DRONEDARONE HYDROCHLORIDE 400 MG TABLET PO SCH (08:00)
[2021-06-27] MEDS ORDERED: NITROFURANTOIN MACROCRYSTAL 50 MG CAPSULE PO SCH (09:00)
[2021-06-27] MEDS ORDERED: VIT B CMPLX 3/FA/VIT C/BIOTIN 1 TAB TABLET PO SCH (09:00)
[2021-06-27] MEDS ORDERED: DILTIAZEM HCL CD 240 MG PO SCH (09:00)
[2021-06-27] MEDS ORDERED: BETHANECHOL CHLORIDE (10 MG) 10 MG TABLET PO SCH (09:00)
[2021-06-27 09:09] LABS: WHITE BLOOD COUNT (AUTO) 18.8 K/uL (4.3-11.0)
[2021-06-27 09:10] LABS: EOSINOPHILS % (AUTO) 2.3 % (0.0-6.0); HEMATOCRIT 29 % (33-45); HEMOGLOBIN 9.1 g/dL (11.5-14.8); LYMPHOCYTES % (AUTO) 60.9 % (20.0-44.0); MEAN CORPUSCULAR HGB CONC 32 g/dl (31.0-36.0); MEAN CORPUSCULAR VOLUME 84 fL (82-100); MONOCYTES % (AUTO) 5.7 % (2.0-12.0); NEUTROPHILS % (AUTO) 30.4 % (43.0-81.0); PLATELET COUNT (AUTO) 269 K/uL (150-450)
[2021-06-27 09:11] LABS: BASOPHILS # (AUTO) 0.1 K/uL (0.0-0.2); BASOPHILS % (AUTO) 0.7 % (0.0-2.0); LYMPHOCYTES # (AUTO) 11.4 K/uL (0.8-4.8); MONOCYTES # (AUTO) 1.1 K/uL (0.1-1.30); NEUTROPHILS # (AUTO) 5.7 K/uL (1.8-8.9)
--- NOTE | 2021-06-27 09:13 | NUR ---
RN MS NOTES PT IN BED, AM MEDS GIVEN, CAREGIVER AT BEDSIDE, DR. NAIR AT BEDSIDE, PLAN OF CARE DISCUSSED WITH PT, VERBALIZED UNDERSTANDING,.
[2021-06-27] MEDS ORDERED: VIT1TABL44 PO (09:25)
[2021-06-27] MEDS ORDERED: DRON400T6 PO (09:25)
[2021-06-27] MEDS ORDERED: NITR50CA51 PO (09:25)
[2021-06-27 09:34] LABS: ALANINE AMINOTRANSFERASE 21 U/L (12-78); ALBUMIN 2.8 g/dL (3.4-5.0); ALKALINE PHOSPHATASE 88 U/L (46-116); ASPARTATE AMINOTRANSFERASE 16 U/L (15-37); BILIRUBIN,DIRECT 0.1 mg/dL (0.0-0.2); BILIRUBIN,TOTAL 0.3 mg/dL (0.2-1.0); CALCIUM, SERUM 7.8 mg/dL (8.5-10.1); CREATININE 2.8 mg/dL (0.6-1.3); GLUCOSE 129 mg/dL (74-106); MAGNESIUM 1.9 mg/dL (1.8-2.4); PHOSPHORUS 2.2 mg/dL (2.5-4.9); UREA NITROGEN, BLOOD 36 mg/dL (7-18)
--- NOTE | 2021-06-27 10:02 | NUR ---
RN MS NOTES PT IN BED, AWAKE, ALERT AND ORIENTED, NO COMPLAINT OF PAIN OR ANY DISCOMFORT, RESPIRATIONS REGULAR, ON O2 AT 2LPM VIA N/C, DISCHARGE ORDER GIVEN BY DR. NAIR, DISCHARGE AND MEDICATION INSTRUCTIONS PROVIDED TO PT AND CAREGIVER, VERBALIZED UNDERSTANDING, BELONGINGS ACCOUNTED FOR, ASSISTED BY CAREGIVER TO WHEELCHAIR, LEFT IN STABLE CONDITION.
[2021-06-27 10:11] LABS: CARBON DIOXIDE 18 mmol/L (21-32); CHLORIDE 106 mmol/L (98-107); POTASSIUM 4.4 mmol/L (3.5-5.1); SODIUM SERUM 135 mmol/L (136-145)
[2021-06-27 10:33] LABS: CREATINE KINASE, TOTAL 82 U/L (26-192)
[2021-06-28] MEDS ORDERED: AMIODARONE HCL 200 MG TABLET PO SCH (09:00)
[2021-06-28 13:07] LABS: *SPE A/G RATIO 1.1 (0.7-1.7); *SPE ALPHA-1-GLOBULIN 0.4 g/dL (0.0-0.4); *SPE BETA GLOBULIN 0.7 g/dL (0.7-1.3); *SPE M-SPIKE Not Observed g/dL (Not Observed)
== END 2021-06-27 10:10 | disposition home or self-care (01) | DRG 291 ==
LOC: ER 21:30 → MED 21:58
PROVIDERS: ADMIT Nurse Practitioner Acute Care; ATTEND Nurse Practitioner Acute Care
PROC: 30233N1 Transfusion of Nonautologous Red Blood Cells into Peripheral Vein, Percutaneous Approach (ICD-10-PCS; principal; 2021-06-26)
DX: I13.0 Hypertensive heart and chronic kidney disease with heart failure and stage 1 through stage 4 chronic kidney disease, or unspecified chronic kidney disease (principal); N17.0 Acute kidney failure with tubular necrosis; I50.32 Chronic diastolic (congestive) heart failure; N39.0 Urinary tract infection, site not specified; C7A.098 Malignant carcinoid tumors of other sites; J96.11 Chronic respiratory failure with hypoxia; D63.8 Anemia in other chronic diseases classified elsewhere; N18.9 Chronic kidney disease, unspecified; I48.91 Unspecified atrial fibrillation; Z87.11 Personal history of peptic ulcer disease; Z85.07 Personal history of malignant neoplasm of pancreas; Z98.890 Other specified postprocedural states; Z88.2 Allergy status to sulfonamides; Z88.8 Allergy status to other drugs, medicaments and biological substances; Z79.51 Long term (current) use of inhaled steroids; Z79.83 Long term (current) use of bisphosphonates; Z79.82 Long term (current) use of aspirin; Z79.899 Other long term (current) drug therapy; Z86.73 Personal history of transient ischemic attack (TIA), and cerebral infarction without residual deficits; I08.0 Rheumatic disorders of both mitral and aortic valves; J44.9 Chronic obstructive pulmonary disease, unspecified; Z87.440 Personal history of urinary (tract) infections; Z79.890 Hormone replacement therapy; Z87.891 Personal history of nicotine dependence; N26.1 Atrophy of kidney (terminal); I70.0 Atherosclerosis of aorta; D72.829 Elevated white blood cell count, unspecified; R19.09 Other intra-abdominal and pelvic swelling, mass and lump; I25.2 Old myocardial infarction; E31.21 Multiple endocrine neoplasia [MEN] type I; D25.9 Leiomyoma of uterus, unspecified; D3A.00 Benign carcinoid tumor of unspecified site; Z96.649 Presence of unspecified artificial hip joint; Z99.81 Dependence on supplemental oxygen; Z86.69 Personal history of other diseases of the nervous system and sense organs; T39.395A Adverse effect of other nonsteroidal anti-inflammatory drugs [NSAID], initial encounter; Y92.9 Unspecified place or not applicable; K76.89 Other specified diseases of liver; R91.8 Other nonspecific abnormal finding of lung field
CPT/HCPCS: 36415; 80048-TC; 80076-TC; 82550-TC; 83735-TC; 83970; 84100-TC; 84155; 84165; 84550-TC; 85025-TC; 86850-TC; 87081-TC; G0378; J3490; J7050; P9016

== ENCOUNTER 2021-07-14 19:41 | Inpatient (IN) | payer OTHER ==
[~2021-07-14] VITALS: Ht 167.6 cm; Wt 59.0 kg
[~2021-07-14 19:41] MED LIST changes: -ALEN70TA3 PO; -AMIO200T5 PO; -ASPI-1169 PO; -AZIT250T13 PO; -BISA10SU11 RC; -CHOL100062 PO; -DOCU-141 PO; +DRON400T6 PO; -FLUT1BLS6 IH; -FOLI0.8T2 PO; -FURO40TA5 PO; -HYDR-4077 PO; -IPRA0.2S49 NEB; -LEVA0.6320 IH; -MELA3TAB41 PO; -MENT3.5O TP; -MERO500P IV; +NITR50CA51 PO; -OCTR30VI3 IM; -PANT40TA2 PO; -POLY17PO4 PO; -POTA-10 PO; +VIT1TABL44 PO
[2021-07-14] MEDS ORDERED: ONDANSETRON HCL/PF 4 MG/2 ML VIAL IVP PRN (20:00)
[2021-07-14] MEDS ORDERED: ACETAMINOPHEN 325 MG TABLET PO PRN (20:00)
--- NOTE | 2021-07-14 20:00 | NUR ---
BIBFAMILY SENT BY PCP JOANIE FOR LOW HEMOGLOBIN OF 6.0 IN NEED OF BLOOD TRANSFUSION. PT AWAKE AND ALERT X4 V/S WNL. CHANGED INTO GOWN AND PLACED ON MONITOR BREATHING EVEN AND UNLABORED.
--- NOTE | 2021-07-14 20:03 | NUR ---
COVID SWAB COLLECTED AND SENT TO LAB
--- NOTE | 2021-07-14 20:04 | NUR ---
LABS DRAWN AND SENT TO LAB
[2021-07-14] MEDS ORDERED: ONDANSETRON HCL/PF 4 MG/2 ML VIAL ONE (20:07)
[2021-07-14] MEDS ORDERED: ACETAMINOPHEN 325 MG TABLET ONE (20:07)
--- NOTE | 2021-07-14 20:18 | NUR ---
BLOOD CONSENT FORM SIGNED BY PT AND PLACED IN PT CHART
--- NOTE | 2021-07-14 20:36 | NUR ---
REPORT GIVEN TO JAI
[2021-07-14 20:48] LABS: IRON, SERUM 16 ug/dl (50-175); TOTAL IRON BINDING CAPACITY 195 ug/dl (250-450)
[2021-07-14 21:15] VITALS: BP 126/63
--- NOTE | 2021-07-14 21:15 | NUR ---
PT TRANSFERRED TO MS 317 VIA BLS PROTOCOL.
--- NOTE | 2021-07-14 21:20 | NUR ---
MS CLIENT TECHNICAL SUPPORT ASSOCIATE NOTE PT TRANSPORTED VIA GURNEY TO UNIT AT THIS TIME. PT ADMITTED TO MS UNIT DIRECT ADMIT UNDER PROGRAM SCHEDULER JOANIE FOR ADMITTING DX OF SYMPTOMATIC ANEMIA. A/O X4 AND ABLE TO MAKE NEEDS KNOWN. PTS PERSONAL NURSE AT BEDSIDE. PT IS ON O2 @ 2LPM VIA NC, O2 SAT 98%. NO SOB OR S/S OF RESPIRATORY DISTRESS NOTED. BREATHING EVEN AND UNLABORED. SKIN IS INTACT. IV ACCESS KVNG MIDLINE, INTACT AND PATENT. PT ORIENTED TO STAFF, UNIT, AND ROOM. PT BELONGINGS ACCOUNTED FOR AND BELONGINGS LIST SIGNED. SAFETY PRECAUTIONS IN PLACE. BED IN LOWEST LOCKED POSITION, HOB ELEVATED, SIDE RAILS UP X2, AND CALL LIGHT AND TABLE WITHIN REACH. ALL NEEDS MET AT THIS TIME.
[2021-07-14] MEDS: BETHANECHOL CHLORIDE (10 MG) 10 MG TABLET PO SCH (21:30)
[2021-07-14] MEDS: AMIODARONE HCL 200 MG TABLET PO SCH (21:30)
--- NOTE | 2021-07-14 21:37 | NUR ---
RN NOTE PT GIVEN AMIODARONE 200 MG, URECHOLINE 10 MG, AND MACRODANTIN 50 MG FROM OWN MEDICATIONS. CHARGE NURSE IVAN AND INTEGRATED CIRCUIT LAYOUT DESIGNER JOANIE TELLEZ.
[2021-07-14] MEDS: PANTOPRAZOLE 40 MG VIAL IV SCH (21:52)
[2021-07-14] MEDS: VIT B CMPLX 3/FA/VIT C/BIOTIN 1 TAB TABLET PO SCH (21:53)
[2021-07-14] MEDS ORDERED: CRESTOR 10 MG PO SCH (22:00)
[2021-07-14] MEDS ORDERED: NITROFURANTOIN MACROCRYSTAL 50 MG CAPSULE PO SCH (22:00)
[2021-07-14 22:27] VITALS: BP 126/63
[2021-07-14 22:42] VITALS: BP 122/55
[2021-07-14 22:57] VITALS: BP 113/60
[2021-07-14 23:12] VITALS: BP 117/53
[2021-07-15] VITALS (9 sets, daily range): BP systolic 95–125; BP diastolic 58–68
--- NOTE | 2021-07-15 02:03 | NUR ---
RN NOTE TRANSFUSION OF 1 BAG OF PRBC COMPLETE. NO ADVERSE REACTIONS, TOLERATED WELL. PENDING SECOND BAG OF PRBC BUT NO CLS AVAILABLE TO RELEASE BLOOD UNTIL THE MORNING. CHARGE NURSE IVAN AND FIELD SALES SPECIALIST JOANIE TELLEZ.
--- NOTE | 2021-07-15 05:50 | NUR ---
RN NOTE STRAIGHT CATH PERFORMED FOR UA COLLECTION. URINE SAMPLE LABELED AND PUT IN FRIDGE, LAB NOTIFIED.
[2021-07-15 06:43] LABS: BILIRUBIN,URINE NEGATIVE (NEGATIVE); COLOR,URINE YELLOW (YELLOW); LEUKOCYTE ESTERASE ,URINE NEGATIVE (NEGATIVE); NITRITE, URINE NEGATIVE (NEGATIVE); PROTEIN,URINE 30 mg/dl (NEGATIVE); UGLUCOSE NEGATIVE (NEGATIVE); UROBILINOGEN,URINE 0.2 EU/dL (0.2)
--- NOTE | 2021-07-15 06:50 | NUR ---
MS RN CLOSING NOTE PT AWAKE IN BED. A/O X4 AND ABLE TO MAKE NEEDS KNOWN. PTS PERSONAL NURSE AT BEDSIDE. PT IS ON O2 @ 2LPM VIA NC, O2 SAT 98%. NO SOB OR S/S OF RESPIRATORY DISTRESS NOTED. BREATHING EVEN AND UNLABORED. IV ACCESS KVNG MIDLINE, INTACT AND PATENT. STILL PENDING 1 BAG PRBC, WILL ENDORSE TO ONCOMING NURSE. SAFETY PRECAUTIONS IN PLACE AT ALL TIMES. BED IN LOWEST LOCKED POSITION, HOB ELEVATED, SIDE RAILS UP X2, AND CALL LIGHT AND TABLE WITHIN REACH. ALL NEEDS MET AT THIS TIME AND WILL ENDORSE TO ONCOMING SHIFT FOR KULDEEP.
[2021-07-15] MEDS ORDERED: LEVOTHYROXINE SODIUM 112 MCG TABLET PO SCH (07:00)
--- NOTE | 2021-07-15 07:26 | NUR ---
RN NOTE PT GIVEN SYNTHROID 100 MCG FROM OWN MEDICATIONS FROM PRIVATE BEDSIDE NURSE. CHARGE NURSE IVAN AND CAP JEWEL PLATE ASSEMBLER JOANIE TELLEZ.
--- NOTE | 2021-07-15 07:30 | NUR ---
ms rn received on bed, awake,alert,oriented x4,not in any form of distress, respirations even and unlabored,no sob noted, lungs are clear,abdomen soft,positive bowel sounds,denies pain at this time, will monitor patient.
[2021-07-15 07:34] LABS: BASOPHILS # (AUTO) 0.1 K/uL (0.0-0.2); BASOPHILS % (AUTO) 0.2 % (0.0-2.0); HEMATOCRIT 23 % (33-45); HEMOGLOBIN 7.3 g/dL (11.5-14.8); LYMPHOCYTES # (AUTO) 18.6 K/uL (0.8-4.8); LYMPHOCYTES % (AUTO) 59.8 % (20.0-44.0); MEAN CORPUSCULAR HGB CONC 32 g/dl (31.0-36.0); MEAN CORPUSCULAR VOLUME 83 fL (82-100); MONOCYTES # (AUTO) 0.7 K/uL (0.1-1.30); MONOCYTES % (AUTO) 2.2 % (2.0-12.0); NEUTROPHILS # (AUTO) 11.8 K/uL (1.8-8.9); NEUTROPHILS % (AUTO) 37.8 % (43.0-81.0); PLATELET COUNT (AUTO) 473 K/uL (150-450); RED BLOOD CELL COUNT(AUTO) 2.79 MIL/uL (4.0-5.2)
[2021-07-15 07:42] LABS: WHITE BLOOD COUNT (AUTO) 31.1 K/uL (4.3-11.0)
[2021-07-15 08:19] LABS: CALCIUM, SERUM 7.7 mg/dL (8.5-10.1); CARBON DIOXIDE 23 mmol/L (21-32); CHLORIDE 107 mmol/L (98-107); GLUCOSE 126 mg/dL (74-106); MAGNESIUM 1.8 mg/dL (1.8-2.4); PHOSPHORUS 3.4 mg/dL (2.5-4.9); POTASSIUM 3.8 mmol/L (3.5-5.1); SODIUM SERUM 139 mmol/L (136-145); UREA NITROGEN, BLOOD 31 mg/dL (7-18)
[2021-07-15] MEDS ORDERED: GLYCERIN ADULT 1 SUPP.RECT RC ONE (08:30)
[2021-07-15] MEDS ORDERED: MAGNESIUM HYDROXIDE 30 ML UDC PO ONE (08:30)
--- NOTE | 2021-07-15 08:30 | NUR ---
ms rn breakfast served,due meds given, tolerated well. for blood transfusion today.
[2021-07-15 08:41] LABS: LYMPHOCYTES % (MANUAL) 63 % (16-48); MONOCYTES % (MANUAL) 2 % (0-11.0); NEUTROPHILS % (MANUAL) 35 (42-76)
--- NOTE | 2021-07-15 08:50 | NUR ---
ms rn started on blood transfusion,no reaction noted.
[2021-07-15] MEDS ORDERED: DILTIAZEM HCL CD 240 MG PO SCH (09:00)
[2021-07-15] MEDS ORDERED: SENNOSIDES/DOCUSATE SODIUM 1 TAB TABLET PO SCH (09:00)
[2021-07-15] MEDS: BETHANECHOL CHLORIDE (10 MG) 10 MG TABLET PO SCH (09:02)
[2021-07-15] MEDS: VIT B CMPLX 3/FA/VIT C/BIOTIN 1 TAB TABLET PO SCH (09:02)
[2021-07-15] MEDS: PANTOPRAZOLE 40 MG VIAL IV SCH (09:02)
[2021-07-15] MEDS: AMIODARONE HCL 200 MG TABLET PO SCH (09:04)
--- NOTE | 2021-07-15 11:30 | NUR ---
ms rn blood transfusion done, will be seen by julien and to be d/c.
[2021-07-15] MEDS ORDERED: AMIO200T5 PO (11:37)
[2021-07-15 11:59] LABS: BASOPHILS % (AUTO) 0.1 % (0.0-2.0); HEMATOCRIT 27 % (33-45); HEMOGLOBIN 8.7 g/dL (11.5-14.8); LYMPHOCYTES # (AUTO) 18.9 K/uL (0.8-4.8); LYMPHOCYTES % (AUTO) 57.9 % (20.0-44.0); MEAN CORPUSCULAR HGB CONC 32 g/dl (31.0-36.0); MEAN CORPUSCULAR VOLUME 83 fL (82-100); MONOCYTES # (AUTO) 0.9 K/uL (0.1-1.30); MONOCYTES % (AUTO) 2.8 % (2.0-12.0); NEUTROPHILS # (AUTO) 12.8 K/uL (1.8-8.9); NEUTROPHILS % (AUTO) 39.2 % (43.0-81.0); PLATELET COUNT (AUTO) 451 K/uL (150-450); RED BLOOD CELL COUNT(AUTO) 3.27 MIL/uL (4.0-5.2)
--- NOTE | 2021-07-15 12:05 | NUR ---
ms rn patient went home accomplanied by child care associate teacher,all needs attended.
[2021-07-15 12:11] LABS: WHITE BLOOD COUNT (AUTO) 32.7 K/uL (4.3-11.0)
[2021-07-15 12:50] LABS: LYMPHOCYTES % (MANUAL) 57 % (16-48); MONOCYTES % (MANUAL) 4 % (0-11.0); NEUTROPHILS % (MANUAL) 39 (42-76)
[2021-07-15 19:37] LABS: OCCULT BLOOD STOOL POSITIVE (NEGATIVE)
[2021-07-16] MEDS ORDERED: PANTOPRAZOLE 40 MG TABLET.DR PO SCH (09:00)
== END 2021-07-15 12:00 | disposition home or self-care (01) | DRG 643 ==
LOC: ER 19:58 → MED 20:33
PROVIDERS: ADMIT Nurse Practitioner Acute Care; ATTEND Nurse Practitioner Acute Care
PROC: 30233N1 Transfusion of Nonautologous Red Blood Cells into Peripheral Vein, Percutaneous Approach (ICD-10-PCS; principal; 2021-07-14)
DX: E31.21 Multiple endocrine neoplasia [MEN] type I (principal); N17.0 Acute kidney failure with tubular necrosis; I13.0 Hypertensive heart and chronic kidney disease with heart failure and stage 1 through stage 4 chronic kidney disease, or unspecified chronic kidney disease; D62 Acute posthemorrhagic anemia; I50.32 Chronic diastolic (congestive) heart failure; N39.0 Urinary tract infection, site not specified; N18.9 Chronic kidney disease, unspecified; D63.1 Anemia in chronic kidney disease; I48.91 Unspecified atrial fibrillation; J44.9 Chronic obstructive pulmonary disease, unspecified; Z86.012 Personal history of benign carcinoid tumor; Z88.2 Allergy status to sulfonamides; Z88.8 Allergy status to other drugs, medicaments and biological substances; Z79.899 Other long term (current) drug therapy; Z86.73 Personal history of transient ischemic attack (TIA), and cerebral infarction without residual deficits; Z87.891 Personal history of nicotine dependence; Z95.818 Presence of other cardiac implants and grafts; Z96.649 Presence of unspecified artificial hip joint; Z99.81 Dependence on supplemental oxygen; Z79.890 Hormone replacement therapy; N26.1 Atrophy of kidney (terminal); D72.828 Other elevated white blood cell count; I05.0 Rheumatic mitral stenosis; I70.0 Atherosclerosis of aorta; D25.9 Leiomyoma of uterus, unspecified; Z86.69 Personal history of other diseases of the nervous system and sense organs; D63.0 Anemia in neoplastic disease; D75.89 Other specified diseases of blood and blood-forming organs
CPT/HCPCS: 36415; 71045-TC; 80048-TC; 82272-TC; 82728-TC; 83540-TC; 83735-TC; 84100-TC; 85025-TC; 86850-TC; C9113; G0378; J2405; J7040; J7050; P9016

== ENCOUNTER 2021-08-30 11:07 | Inpatient (IN) | payer OTHER ==
[2021-08-30] VITALS (15 sets, daily range): BP systolic 61–127; BP diastolic 18–75
[~2021-08-30] VITALS: Ht 167.6 cm; Wt 72.6 kg
[~2021-08-30 11:07] MED LIST changes: +AMIO200T5 PO; -DRON400T6 PO
--- NOTE | 2021-08-30 11:15 | NUR ---
GIOVANNA, 911 called by medical professional , pt weak and change of condition noted
--- NOTE | 2021-08-30 11:23 | NUR ---
EKG being read now, b/p hypotension noted 88/48, weight is 153.4 from bed weight scale, HR = 74, RR = 20, oxygen = 96.
--- NOTE | 2021-08-30 11:25 | NUR ---
MOVE SHEET SUMITTED.
[2021-08-30] MEDS ORDERED: Magnesium 1GM/D5W 100ML PREMIX 100 ML IV ONE (11:29)
[2021-08-30] MEDS ORDERED: Magnesium 1GM/D5W 100ML PREMIX 200 ML IV ONE (11:30)
[2021-08-30] MEDS ORDERED: IPRATROPIUM NEB FS 0.5 MG/2.5 ML AMPUL.NEB NEB ONE ×2 (11:30→15:00)
[2021-08-30] MEDS ORDERED: ALBUTEROL FS 2.5 MG/3 ML VIAL.NEB NEB ONE (11:30)
[2021-08-30] MEDS ORDERED: methylPREDNISolone SOD SUCC 125 MG/2ML VIAL IV ONE (11:30)
[2021-08-30] MEDS ORDERED: CALC500T52 PO (11:36)
[2021-08-30] MEDS ORDERED: HYDR-4077 PO (11:36)
[2021-08-30] MEDS ORDERED: DOCU-141 PO (11:36)
[2021-08-30] MEDS ORDERED: POLY17PO4 PO (11:36)
[2021-08-30] MEDS ORDERED: IRBE150T28 PO (11:36)
[2021-08-30] MEDS ORDERED: [UNRECOGNIZED DRUG - CODE] PO (11:36)
[2021-08-30] MEDS ORDERED: ALLO100T PO (11:36)
[2021-08-30] MEDS ORDERED: DILT240C88 PO (11:36)
[2021-08-30] MEDS ORDERED: VIT1TABL44 PO (11:36)
[2021-08-30] MEDS ORDERED: CRAN200C PO (11:36)
[2021-08-30] MEDS ORDERED: IPRA0.2S9 IH (11:36)
[2021-08-30] MEDS ORDERED: NEURIVA PO (11:36)
[2021-08-30] MEDS ORDERED: AMIO200T5 PO (11:36)
[2021-08-30] MEDS ORDERED: FLUT1BLS6 IH (11:36)
[2021-08-30] MEDS ORDERED: MELA3TAB41 PO (11:36)
[2021-08-30] MEDS ORDERED: SENN-261 PO (11:36)
[2021-08-30] MEDS ORDERED: LEVA0.6320 IH (11:36)
[2021-08-30] MEDS ORDERED: PANT40TA49 PO (11:36)
[2021-08-30] MEDS ORDERED: CHOL100043 PO (11:36)
[2021-08-30] MEDS ORDERED: ASPI-1169 PO (11:36)
--- NOTE | 2021-08-30 11:40 | NUR ---
RT NOTE POST ABG RESULTS SHOWN TO DR. SANCHEZ. NO CHANGES AT THIS TIME. WILL CONTINUE TO MONITOR FOR ANY CHANGES.
[2021-08-30 11:42] LABS: ABG BASE EXCESS -6.5 mmol/L; ABG PCO2 48.1 mmHg (35.0-45.0); ABG PH 7.247 (7.350-7.450); ABG PO2 46.5 mmHg (75.0-100.0); COHb 0.2 % (0.5-1.5); MetHb 0.1 % (0.0-1.5); O2Hb 83.4 % (94.0-97.0); SITE, ABG Right Radial; VENT MODE, BG 3 LPM NC
[2021-08-30] MEDS ORDERED: methylPREDNISolone SOD SUCC 125 MG/2ML VIAL ONE (11:49)
[2021-08-30 11:51] LABS: BASOPHILS # (AUTO) 0.3 K/uL (0.0-0.2); BASOPHILS % (AUTO) 0.9 % (0.0-2.0); HEMATOCRIT 27 % (33-45); HEMOGLOBIN 8.5 g/dL (11.5-14.8); LYMPHOCYTES # (AUTO) 14.5 K/uL (0.8-4.8); LYMPHOCYTES % (AUTO) 41.8 % (20.0-44.0); MEAN CORPUSCULAR HGB CONC 31 g/dl (31.0-36.0); MEAN CORPUSCULAR VOLUME 88 fL (82-100); MONOCYTES # (AUTO) 2.2 K/uL (0.1-1.30); MONOCYTES % (AUTO) 6.4 % (2.0-12.0); NEUTROPHILS # (AUTO) 17.6 K/uL (1.8-8.9); NEUTROPHILS % (AUTO) 50.9 % (43.0-81.0); PLATELET COUNT (AUTO) 142 K/uL (150-450); RED BLOOD CELL COUNT(AUTO) 3.07 MIL/uL (4.0-5.2)
[2021-08-30 11:58] LABS: CALCIUM, SERUM 7.7 mg/dL (8.5-10.1); CARBON DIOXIDE 25 mmol/L (21-32); CHLORIDE 97 mmol/L (98-107); CREATININE 4.6 mg/dL (0.6-1.3); GLUCOSE 102 mg/dL (74-106); POTASSIUM 5.7 mmol/L (3.5-5.1); SODIUM SERUM 130 mmol/L (136-145); UREA NITROGEN, BLOOD 50 mg/dL (7-18)
[2021-08-30 12:11] LABS: ALANINE AMINOTRANSFERASE 157 U/L (12-78); ALBUMIN 1.9 g/dL (3.4-5.0); ALKALINE PHOSPHATASE 145 U/L (46-116); ASPARTATE AMINOTRANSFERASE 460 U/L (15-37); BILIRUBIN,DIRECT 0.3 mg/dL (0.0-0.2); BILIRUBIN,TOTAL 0.6 mg/dL (0.2-1.0); TOTAL PROTEIN, SERUM 5.1 g/dL (6.4-8.2)
[2021-08-30 12:13] LABS: WHITE BLOOD COUNT (AUTO) 34.7 K/uL (4.3-11.0)
[2021-08-30] MEDS ORDERED: ONDANSETRON HCL/PF 4 MG/2 ML VIAL IVP PRN (12:30)
[2021-08-30] MEDS ORDERED: ACETAMINOPHEN 325 MG TABLET PO PRN (12:30)
--- NOTE | 2021-08-30 13:10 | NUR ---
BED 256. ADMITTING NOTIFIED.
[2021-08-30] MEDS ORDERED: ALBUMIN 25% 50 ML IV ONE (13:23)
[2021-08-30] MEDS: ALBUMIN 25% 25 GM in PREMIX 1 EA IV SCH ×2 (13:25→22:00)
[2021-08-30 14:09] LABS: BAND % (MANUAL) 4 % (0.0-5.0); LYMPHOCYTES % (MANUAL) 43 % (16-48); MONOCYTES % (MANUAL) 6 % (0-11.0); NEUTROPHILS % (MANUAL) 47 (42-76)
[2021-08-30] MEDS ORDERED: ALBUTEROL FS 2.5 MG/3 ML VIAL.NEB ONE ×2 (14:29→23:10)
[2021-08-30] MEDS ORDERED: IPRATROPIUM NEB FS 0.5 MG/2.5 ML AMPUL.NEB ONE ×2 (14:29→23:07)
[2021-08-30] MEDS ORDERED: ALBUTEROL FS 2.5 MG/0.5 ML VIAL.NEB NEB ONE (15:00)
[2021-08-30] MEDS: ACETYLCYSTEINE 20% SOLN 800 MG/4 ML VIAL NEB SCH ×3 (16:07→23:18)
--- NOTE | 2021-08-30 16:07 | NUR ---
RT NOTE UNABLE TO GIVE BREATHING TREATMENT AT THIS TIME. PATIENT TESTED POSITIVE FOR COVID. RN AWARE.
--- NOTE | 2021-08-30 16:18 | NUR ---
RN NOTES RECEIVED PT IN ICU ROOM 259 ,PT A/Ox2-3, ON 6L O2 FACE MASK , O2 SAT WNL, ON TELE SR HR IN 70'S, LEFT UPPER ARM MIDLINE SITE , CLEAN,DRY AND INTACT, COURT BAILIFF AT THE BEDSIDE, SACRAL DTI NOTED, SKIN PHOTO TAKEN AND PLACE IN THE CHART, WOUND CONSULT ORDERED, SR UP x3, CALL LIGHT WITHIN EASY REACH, BED LOCKED AND IN LOWEST POSITION, CONTINUE TO MONITOR.
--- NOTE | 2021-08-30 16:26 | NUR ---
TRANSFERRED PT TO ICU 259 VIA GURNEY VIA ACLS PROTOCOL. WARM HANDOFF GIVEN TO SUHAS REGULATOR MECHANIC.
[2021-08-30] MEDS: CEFEPIME 1 GM in IV D5W 50 ML IV SCH (17:07)
[2021-08-30] MEDS: IV D5/ 0.9% NACL 1,000 ML IV PRN ×2 (17:11→17:16)
[2021-08-30 18:25] LABS: C-REACTIVE PROTEIN 34.6 mg/dL (0.0-0.9)
--- NOTE | 2021-08-30 18:41 | NUR ---
RN NOTES PT STABLE, ON FACE MASK AT 6L O2 , O2 SAT WNL, ED TECH AT THE BESIDE, NO DISTRESS NOTED, WILL ENDORSE TO RATTLING MACHINE TENDER NURSE FOR CONTINUITY OF CARE .
[2021-08-30] MEDS ORDERED: IPRATROPIUM BROMIDE 14 GM INHALER (or 12.9 GM) INH SCH (19:30)
[2021-08-30] MEDS ORDERED: ALBUTEROL SULFATE 8 GM HFA.AER.AD IH SCH ×2 (19:30→23:30)
--- NOTE | 2021-08-30 20:00 | NUR ---
[place] PAINTER. INITIAL ASSESSMENT. RECEIVED THE PT REST IN BED. AWAKE, ALERT. FOLLOW COMMANDS. PLANT UTILITY PERSON SHOWING NSR.OXYGEN 8L VIA SIMPLE MASK IV RT UPPER ARM MID LINE. IVF D5NS 75 ML/H.HOB ELEVATED. TURN AND REPOSITION Q2H. A FEBRILE. WILL CONTINUE TO MONITOR VITALS.
[2021-08-30] MEDS ORDERED: LEVALBUTEROL HCL NEB 1.25 MG/0.5 ML VIAL.NEB NEB SCH (22:00)
[2021-08-30] MEDS ORDERED: IV NS 0.9% 500 ML IV ONE (22:30)
[2021-08-30] MEDS ORDERED: MICAFUNGIN SODIUM 100 MG VIAL IV ONE (23:02)
[2021-08-30] MEDS: MICAFUNGIN SODIUM 100 MG in IV NS 0.9% 100 ML IV SCH (23:17)
[2021-08-30] MEDS: IPRATROPIUM NEB FS 0.5 MG/2.5 ML AMPUL.NEB NEB SCH (23:18)
[2021-08-30] MEDS: ALBUTEROL FS 2.5 MG/3 ML VIAL.NEB NEB SCH (23:18)
[2021-08-30] MEDS ORDERED: PHENYLEPHRINE 50 MG in IV NS 0.9% 245 ML IV PRN (23:30)
[2021-08-30] MEDS ORDERED: NOREPINEPHRINE 8 MG in IV NS 0.9% 242 ML IV PRN (23:30)
[2021-08-31] VITALS (43 sets, daily range): BP systolic 92–159; BP diastolic 33–80
[2021-08-31] MEDS: ACETYLCYSTEINE 20% SOLN 800 MG/4 ML VIAL NEB SCH ×6 (01:00→17:36)
[2021-08-31] MEDS: ALBUTEROL FS 2.5 MG/3 ML VIAL.NEB NEB SCH ×5 (03:11→17:36)
[2021-08-31] MEDS: IPRATROPIUM NEB FS 0.5 MG/2.5 ML AMPUL.NEB NEB SCH ×5 (03:12→17:36)
[2021-08-31] MEDS: HEPARIN SODIUM, PORCINE 5000 UNITS/1 ML VIAL SQ SCH ×3 (03:14→21:00)
[2021-08-31 04:37] LABS: BASOPHILS # (AUTO) 0.1 K/uL (0.0-0.2); BASOPHILS % (AUTO) 0.3 % (0.0-2.0); HEMATOCRIT 23 % (33-45); HEMOGLOBIN 7.1 g/dL (11.5-14.8); LYMPHOCYTES # (AUTO) 13.6 K/uL (0.8-4.8); LYMPHOCYTES % (AUTO) 42.1 % (20.0-44.0); MEAN CORPUSCULAR HGB CONC 31 g/dl (31.0-36.0); MEAN CORPUSCULAR VOLUME 88 fL (82-100); MONOCYTES # (AUTO) 1.1 K/uL (0.1-1.30); MONOCYTES % (AUTO) 3.5 % (2.0-12.0); NEUTROPHILS # (AUTO) 17.5 K/uL (1.8-8.9); NEUTROPHILS % (AUTO) 54.1 % (43.0-81.0); PLATELET COUNT (AUTO) 132 K/uL (150-450)
[2021-08-31] MEDS ORDERED: IV NS 0.9% 500 ML IV STA (04:45)
--- NOTE | 2021-08-31 04:49 | NUR ---
QUILL WORKER. PT SINCE ADMISSION NOT PASSED URINE. JOANIE RIVERA MADE AWARE
[2021-08-31 04:51] LABS: WHITE BLOOD COUNT (AUTO) 32.3 K/uL (4.3-11.0)
[2021-08-31 04:58] LABS: ALANINE AMINOTRANSFERASE 151 U/L (12-78); ALBUMIN 2.6 g/dL (3.4-5.0); ALKALINE PHOSPHATASE 118 U/L (46-116); BILIRUBIN,DIRECT 0.3 mg/dL (0.0-0.2); BILIRUBIN,TOTAL 0.7 mg/dL (0.2-1.0); CALCIUM, SERUM 7.5 mg/dL (8.5-10.1); CARBON DIOXIDE 23 mmol/L (21-32); CHLORIDE 97 mmol/L (98-107); CREATININE 4.9 mg/dL (0.6-1.3); GLUCOSE 188 mg/dL (74-106); MAGNESIUM 2.3 mg/dL (1.8-2.4); PHOSPHORUS 6.1 mg/dL (2.5-4.9); POTASSIUM 5.5 mmol/L (3.5-5.1); SODIUM SERUM 130 mmol/L (136-145); TOTAL PROTEIN, SERUM 5.3 g/dL (6.4-8.2); UREA NITROGEN, BLOOD 51 mg/dL (7-18)
[2021-08-31 05:31] LABS: FERRITIN 6922 ng/mL (8-388)
[2021-08-31] MEDS: ALBUMIN 25% 25 GM in PREMIX 1 EA IV SCH (05:56)
[2021-08-31 06:21] LABS: ASPARTATE AMINOTRANSFERASE 432 U/L (15-37)
[2021-08-31] MEDS: IV D5/ 0.9% NACL 1,000 ML IV PRN (06:37)
--- NOTE | 2021-08-31 07:27 | NUR ---
WOUND CARE CONSULT: REVIEWED CHART, NURSING DOCUMENTATION AND PHOTOS WHICH INDICATE MULTIPLE AREAS OF SKIN DISCOLORATION AND SACRAL DEEP TISSUE INJURY, PRESENT ON ADMISSION. RECOMMENDATIONS MADE FOR SKIN PROTECTION. DISCUSSED WITH NURSING STAFF. PT IS ON CRUGER ISOFLEX LOW AIRLOSS BED. MD IN AGREEMENT WITH PLAN OF CARE.
[2021-08-31] MEDS ORDERED: Z GUARD REMEDY 4 OZ OINT TP PRN (07:30)
[2021-08-31 07:59] LABS: BAND % (MANUAL) 4 % (0.0-5.0); LYMPHOCYTES % (MANUAL) 52 % (16-48); MONOCYTES % (MANUAL) 2 % (0-11.0); MYELOCYTES % 1 % (0-0); NEUTROPHILS % (MANUAL) 40 (42-76)
[2021-08-31] MEDS: DEXAMETHASONE SOD PHOSPHATE 10 MG/ML VIAL IV SCH (08:43)
--- NOTE | 2021-08-31 08:52 | NUR ---
PER DR. NAIR HOLD THE HEPARIN DOSE DUE AT 0900AM.
[2021-08-31] MEDS: Z GUARD REMEDY 4 OZ OINT TP SCH (09:00)
--- NOTE | 2021-08-31 11:30 | NUR ---
PAT MADE AWARE OF NO URINE OUTPUT NOTED. NO NEW ORDER AT THIS TIME.
--- NOTE | 2021-08-31 11:38 | NUR ---
TELEPHONE CONSENT FOR US-GUIDED THORACENTESIS OBTAINED FROM PATIENT'S DAUGHTER SHERINE ROBERTO BY CHARGE NURSE AND ELECTRONIC DEVELOPMENT TECHNICIAN.
[2021-08-31] MEDS ORDERED: IV NS 0.9% 1,000 ML IV ONE (15:00)
[2021-08-31] MEDS: CEFEPIME 1 GM in IV D5W 50 ML IV SCH (15:55)
--- NOTE | 2021-08-31 17:39 | NUR ---
RT RESP TX'S ARE NOT BEING GIVEN BY RESP THERAPIST PER POSITIVE COVID PROTOCOLS. PER MATERIALS INTERN-JOANIE MEDS ARE BEING PULLED AND GIVEN BY HER.
--- NOTE | 2021-08-31 19:05 | NUR ---
PRODUCT MARKETING EXECUTIVE NOTES RECEIVED PATIENT ON BED, AWAKE, A/0 X 2-3 WITH PERIOD OF CONFUSION. ON SIMPLE MASK @ 8 LPM SATING AT 94%. RESPIRATORY EVEN AND UNLABORED, NO SOB NOTED. AFEBRILE, NO S/S OF DISTRESS NOTED. RECEIVED WITH ON GOING HEMODIALYSIS, TOLERATED WELL. PATIENT KVNG MIDLINE, FLUSHED WITH NS, NO S/S OF INFILTRATION NOTED AT SITE, RUNNING WITH NS @ 50 ML/HR X 20 HRS. RIGHT FEMORAL HD CATHETER, NO BLEEDING AT SITE. CABALLERO CATHETER WITH LOW URINE OUTPUT. ALL SAFETY MEASURE PROVIDED. BED IN LOWEST POSITION, LOCKED. BED ALARM ARMED. CONTINUE TO MONITOR.
--- NOTE | 2021-08-31 21:07 | NUR ---
RN NOTES HELD HEPARIN 5,000 UNITS, HGB- 7.1, DNP KRISHAN NAIR AWARE.
[2021-08-31] MEDS ORDERED: ALBUTEROL FS 2.5 MG/0.5 ML VIAL.NEB NEB ONE (22:00)
[2021-08-31] MEDS ORDERED: IPRATROPIUM NEB FS 0.5 MG/2.5 ML AMPUL.NEB NEB ONE (22:00)
[2021-08-31] MEDS: MICAFUNGIN SODIUM 100 MG in IV NS 0.9% 100 ML IV SCH (22:44)
[2021-09-01] VITALS (67 sets, daily range): BP systolic 90–158; BP diastolic 35–99
[2021-09-01 05:06] LABS: BASOPHILS # (AUTO) 0.1 K/uL (0.0-0.2); BASOPHILS % (AUTO) 0.3 % (0.0-2.0); EOSINOPHILS % (AUTO) 0.1 % (0.0-6.0); HEMATOCRIT 23 % (33-45); HEMOGLOBIN 7.2 g/dL (11.5-14.8); LYMPHOCYTES # (AUTO) 11.4 K/uL (0.8-4.8); LYMPHOCYTES % (AUTO) 32.9 % (20.0-44.0); MEAN CORPUSCULAR HGB CONC 31 g/dl (31.0-36.0); MEAN CORPUSCULAR VOLUME 88 fL (82-100); MONOCYTES # (AUTO) 1.4 K/uL (0.1-1.30); NEUTROPHILS # (AUTO) 21.7 K/uL (1.8-8.9); NEUTROPHILS % (AUTO) 62.7 % (43.0-81.0); PLATELET COUNT (AUTO) 114 K/uL (150-450); RED BLOOD CELL COUNT(AUTO) 2.62 MIL/uL (4.0-5.2)
[2021-09-01 05:16] LABS: WHITE BLOOD COUNT (AUTO) 34.6 K/uL (4.3-11.0)
[2021-09-01 05:26] LABS: IRON, SERUM 13 ug/dl (50-175); TOTAL IRON BINDING CAPACITY 106 ug/dl (250-450)
[2021-09-01 05:29] LABS: ALANINE AMINOTRANSFERASE 147 U/L (12-78); ALBUMIN 2.7 g/dL (3.4-5.0); ALKALINE PHOSPHATASE 142 U/L (46-116); ASPARTATE AMINOTRANSFERASE 409 U/L (15-37); BILIRUBIN,DIRECT 0.3 mg/dL (0.0-0.2); BILIRUBIN,TOTAL 0.6 mg/dL (0.2-1.0); MAGNESIUM 2.2 mg/dL (1.8-2.4); PHOSPHORUS 5.3 mg/dL (2.5-4.9); POTASSIUM 4.6 mmol/L (3.5-5.1); SODIUM SERUM 135 mmol/L (136-145); TOTAL PROTEIN, SERUM 5.4 g/dL (6.4-8.2)
[2021-09-01 05:31] LABS: URIC ACID 4.5 mg/dL (2.6-7.2)
[2021-09-01 05:44] LABS: D-DIMER 6.33 mg/L(FEU (0.17-0.50)
[2021-09-01 06:32] LABS: FERRITIN 5598 ng/mL (8-388); THYROID STIMULATING HORMONE 0.106 uIU/mL (0.358-3.74)
[2021-09-01 06:37] LABS: C-REACTIVE PROTEIN 17.2 mg/dL (0.0-0.9)
--- NOTE | 2021-09-01 07:00 | NUR ---
RN NOTES RECEIVED PT ON BED, DRAWZY, OPENS EYES TO VERBAL STIMULI, ON TELE SR , CABALLERO TO GRAVITY, NO URIN OUTPUT NOTED, R FEMORAL HD CATH AND L UPPER ARM MIDLINE SITE CLEAN. DRY AND INTACT, NS AT 50 CC/HR RUNNING , JOANIE FOOD AIDE AND DEFENSE ATTORNEY AT THE BEDSIDE, SR UP x3, CALL LIGHT WITHIN EASY REACH, BED LOCKED AND IN LOWEST POSITION, CONTINUE TO MONITOR .
--- NOTE | 2021-09-01 07:16 | NUR ---
RN NOTES PATIENT SLEEPING, REMAIN STABLE . RESPIRATORY EVEN AND UNLABORED, NO SOB NOTED. AFEBRILE, NO S/S OF DISTRESS NOTED. RUNNING WITH NS @ 50 ML/HR X 20 HRS. RIGHT FEMORAL HD CATHETER, NO BLEEDING AT SITE. CABALLERO CATHETER WITH LOW URINE OUTPUT. ALL DUE MEDS GIVEN ORDERED. ALL SAFETY MEASURE PROVIDED. BED IN LOWEST POSITION, LOCKED. BED ALARM ARMED. REPORT GIVEN TO MORNING SHIFT NURSE
[2021-09-01] MEDS: ACETAMINOPHEN 650 MG/SUPP.RECT RC PRN ×2 (08:08→19:32)
[2021-09-01] MEDS: IPRATROPIUM NEB FS 0.5 MG/2.5 ML AMPUL.NEB NEB SCH ×2 (08:19→19:31)
[2021-09-01] MEDS: HEPARIN SODIUM, PORCINE 5000 UNITS/1 ML VIAL SQ SCH ×2 (08:19→21:02)
[2021-09-01] MEDS: ALBUTEROL FS 2.5 MG/3 ML VIAL.NEB NEB SCH ×2 (08:19→19:31)
[2021-09-01] MEDS: ACETYLCYSTEINE 20% SOLN 800 MG/4 ML VIAL NEB SCH ×3 (08:20→21:15)
[2021-09-01] MEDS: DEXAMETHASONE SOD PHOSPHATE 10 MG/ML VIAL IV SCH (08:20)
[2021-09-01 08:33] LABS: CARBON DIOXIDE 24 mmol/L (21-32); CHLORIDE 100 mmol/L (98-107); CREATININE 3.6 mg/dL (0.6-1.3); GLUCOSE 145 mg/dL (74-106); UREA NITROGEN, BLOOD 35 mg/dL (7-18)
[2021-09-01 08:48] LABS: BAND % (MANUAL) 3 % (0.0-5.0); LYMPHOCYTES % (MANUAL) 30 % (16-48); MONOCYTES % (MANUAL) 4 % (0-11.0); NEUTROPHILS % (MANUAL) 55 (42-76)
[2021-09-01] MEDS: Z GUARD REMEDY 4 OZ OINT TP SCH (09:10)
[2021-09-01] MEDS: PANTOPRAZOLE 40 MG VIAL IV SCH (11:13)
--- NOTE | 2021-09-01 12:00 | NUR ---
RN NOTES PT STABLE , JOANIE PROPERTY DISPOSAL OFFICER THE PRIMARY NURSE AND PT'S PCP AT THE BEDSIDE, NO DISTESS NOTED ,CONTINUE TO MONITOR.
[2021-09-01] MEDS: IV D5/ 0.9% NACL 1,000 ML IV PRN (13:14)
[2021-09-01] MEDS ORDERED: HIZENTRA SQ ONE (14:00)
[2021-09-01] MEDS: CEFEPIME 1 GM in IV D5W 50 ML IV SCH (15:45)
[2021-09-01] MEDS: NEPRO VAN 237 ML CAN NG SCH (16:20)
--- NOTE | 2021-09-01 18:30 | NUR ---
RN NOTES NO SIGNIFICANT CHANGES NOTED ON THIS SHIFT, NGT WILL BE ADVANCE 15 CM BY JOANIE PORTILLO PER HER ORDER . WILL ENDORSE TO ART CRITIC NURSE FOR CONTINUITY OF CARE .
--- NOTE | 2021-09-01 20:10 | NUR ---
RN NOTES NT SUCTION DONE BY NICOLE NAIR, PROCEDURE TOLERATED WELL.
--- NOTE | 2021-09-01 20:30 | NUR ---
RN NOTES NOTED WITH WATERY BROWN STOOL, NICOLE NAIR AWARE AT BEDSIDE.
--- NOTE | 2021-09-01 21:14 | NUR ---
RN NOTES HEMODIALYSIS STARTED, PATIENT VITAL SIGN WITH IN NORMAL LIMITS.
[2021-09-01] MEDS: MICAFUNGIN SODIUM 100 MG in IV NS 0.9% 100 ML IV SCH (22:37)
[2021-09-01] MEDS ORDERED: NOREPINEPHRINE 8MG/250ML RTU 250 ML IV ONE (23:15)
--- NOTE | 2021-09-01 23:21 | NUR ---
RN NOTES PATIENT NOTED WITH LOW BLOOD PRESSURE, HEMODIALYSIS STOP. REMOVED 1200ML OF FLUID, NICOLE NAIR ORDER TO START LEVO.
[2021-09-01] MEDS ORDERED: NOREPINEPHRINE 8 MG in IV NS 0.9% 242 ML IV PRN ×4 (23:30)
[2021-09-02] VITALS (83 sets, daily range): BP systolic 116–188; BP diastolic 41–100
[2021-09-02] MEDS: IPRATROPIUM NEB FS 0.5 MG/2.5 ML AMPUL.NEB NEB SCH ×5 (03:30→20:58)
[2021-09-02] MEDS: IV D5/ 0.9% NACL 1,000 ML IV PRN ×2 (04:12→16:41)
[2021-09-02] MEDS: ACETYLCYSTEINE 20% SOLN 800 MG/4 ML VIAL NEB SCH ×6 (05:00→20:58)
[2021-09-02] MEDS: hydrALAZINE HCL IV 20 MG VIAL IV PRN ×3 (05:57→20:02)
--- NOTE | 2021-09-02 05:57 | NUR ---
RN NOTES PATIENT NOTED WITH BP- 165/66, PULSE- 80, HYDRALAZINE 10MG IV GIVEN PER MD'S ORDERED.
[2021-09-02 06:09] LABS: BASOPHILS % (AUTO) 0.1 % (0.0-2.0); HEMATOCRIT 21 % (33-45); LYMPHOCYTES # (AUTO) 10.4 K/uL (0.8-4.8); LYMPHOCYTES % (AUTO) 33.2 % (20.0-44.0); MEAN CORPUSCULAR HGB CONC 32 g/dl (31.0-36.0); MEAN CORPUSCULAR VOLUME 88 fL (82-100); MONOCYTES # (AUTO) 0.9 K/uL (0.1-1.30); MONOCYTES % (AUTO) 2.9 % (2.0-12.0); NEUTROPHILS % (AUTO) 63.8 % (43.0-81.0); PLATELET COUNT (AUTO) 112 K/uL (150-450); RED BLOOD CELL COUNT(AUTO) 2.41 MIL/uL (4.0-5.2)
[2021-09-02 06:24] LABS: HEMOGLOBIN 6.7 g/dL (11.5-14.8); WHITE BLOOD COUNT (AUTO) 31.4 K/uL (4.3-11.0)
[2021-09-02] MEDS ORDERED: hydrALAZINE HCL IV 20 MG VIAL IV ONE ×2 (06:30→13:00)
[2021-09-02] MEDS ORDERED: ACETAMINOPHEN 650 MG/20 ML UDC- SA PATIENTS-PAIN ONLY GT PRN (06:30)
[2021-09-02] MEDS: ALBUTEROL FS 2.5 MG/3 ML VIAL.NEB NEB SCH ×5 (06:31→20:58)
[2021-09-02] MEDS ORDERED: ACETAMINOPHEN 650 MG/20.3 ML UDC ONE (06:35)
--- NOTE | 2021-09-02 08:00 | NUR ---
rn notes received patient on simple face mask 6l, o2-95% on bedside monitor. patient A/A/O x3, refused pain, no acute respiratory distress. infusing d5ns @75 ml/hr on KVNG midline intact. patient on sitting position, assist turn and repostion q 2hr. patient on NGT gravity feeding, due medication administered. nelson intact no output. bm X1. HD cath on right groin area intact. [facility] direct care provider next to the bed.
[2021-09-02 08:06] LABS: IMMUNOGLOBULIN A, SERUM 52 mg/dL (64-422); IMMUNOGLOBULIN G, SERUM 315 mg/dL (586-1602); IMMUNOGLOBULIN M, SERUM 35 mg/dL (26-217)
[2021-09-02 08:16] LABS: CALCIUM, SERUM 7.1 mg/dL (8.5-10.1); CARBON DIOXIDE 26 mmol/L (21-32); CHLORIDE 100 mmol/L (98-107); GLUCOSE 174 mg/dL (74-106); PHOSPHORUS 3.6 mg/dL (2.5-4.9); SODIUM SERUM 135 mmol/L (136-145); UREA NITROGEN, BLOOD 28 mg/dL (7-18)
[2021-09-02] MEDS: HEPARIN SODIUM, PORCINE 5000 UNITS/1 ML VIAL SQ SCH ×2 (09:00→21:00)
[2021-09-02] MEDS: CHOLECALCIFEROL (VITAMIN D 3) 400 UNIT TABLET PO SCH (09:49)
[2021-09-02] MEDS: CALCIUM CARBONATE (1250) 500 MG TABLET PO SCH ×2 (09:49→16:53)
[2021-09-02] MEDS: Z GUARD REMEDY 4 OZ OINT TP SCH (09:51)
[2021-09-02] MEDS: ASCORBIC ACID 500 MG TABLET GT SCH (09:52)
[2021-09-02] MEDS: AMIODARONE HCL 200 MG TABLET PO SCH (09:52)
[2021-09-02] MEDS: DEXAMETHASONE SOD PHOSPHATE 10 MG/ML VIAL IV SCH (09:53)
[2021-09-02] MEDS: VIT B CMPLX 3/FA/VIT C/BIOTIN 1 TAB TABLET PO SCH (09:53)
[2021-09-02] MEDS: NEPRO VAN 237 ML CAN NG SCH ×3 (09:54→16:50)
[2021-09-02] MEDS: DILTIAZEM HCL CD 240 MG PO SCH (09:59)
[2021-09-02] MEDS: PANTOPRAZOLE 40 MG VIAL IV SCH (11:37)
--- NOTE | 2021-09-02 11:50 | NUR ---
rn notes started one unit of blood transfusion at this time 60ml/hr on KVNG midline intact . hgl 6.7, platelet 112. t-97.4F, p-85, r-20, bp 172/58. patient refused pain. on simple face mask 6l/min. care given and hospitalist next to the bed. due medication administered. patient a/ox3. assist patient turn and repostion q 2 hr. will follow up.
--- NOTE | 2021-09-02 12:17 | NUR ---
rn notes administered appresolin 10 mg/ml iv push for bp 175/54, p-67. will follow up.
[2021-09-02] MEDS ORDERED: DRONABINOL (2.5 MG) 2.5 MG CAPSULE PO SCH (12:30)
[2021-09-02] MEDS: DRONABINOL (2.5 MG) 2.5 MG CAPSULE PO SCH ×2 (12:58→16:53)
[2021-09-02] MEDS: ACETAMINOPHEN 650 MG/20.3 ML UDC GT PRN (13:20)
--- NOTE | 2021-09-02 13:20 | NUR ---
rn notes administered Tylenol oral solution 650 mg via ngt for generalized pain 08/11. Patient tolerating blood transfusion well t-97.6f, p-87, bp -159/62 , o2-98 face mask 6l. hospitalist next to the bed. taken stool specimenn for CDIF per NICOLE Ramsey's order to the lab. am crae done, NGT gravity feeding tolerating well. keep hob elevated for aspiration precaution.
--- NOTE | 2021-09-02 14:35 | NUR ---
rn notes finished blood transfusion at this time t-97.5F, p-80, bp-164/49, o2-98%. patient tolerating infusion well, refused pain. patient going to get HD at this time.. will follow up.
[2021-09-02] MEDS: CEFEPIME 1 GM in IV D5W 50 ML IV SCH (15:38)
--- NOTE | 2021-09-02 17:39 | NUR ---
rn notes HD finished at this time output was 1800ml, bp- 150/57, p-74.
--- NOTE | 2021-09-02 18:17 | NUR ---
rn notes patient stable, due, medication administered, getting breathing treatment at this time. animal daycare provider, and family next to the bed. will follow up.
--- NOTE | 2021-09-02 19:05 | NUR ---
RN OPENING NOTES RECEIVED PATIENT ON BED, AWAKE, A/0 X 2-3 WITH PERIOD OF CONFUSION. ON SIMPLE MASK @ 8 LPM SATING AT 94%. RESPIRATORY EVEN AND UNLABORED, NO SOB NOTED. AFEBRILE, NO S/S OF DISTRESS NOTED. PATIENT KVNG MIDLINE, FLUSHED WITH NS, NO S/S OF INFILTRATION NOTED AT SITE, RUNNING WITH D5NS @ 75 ML/HR. RIGHT FEMORAL HD CATHETER, NO BLEEDING AT SITE. CABALLERO CATHETER WITH LOW URINE OUTPUT. ALL SAFETY MEASURE PROVIDED. BED IN LOWEST POSITION, LOCKED. BED ALARM ARMED. CONTINUE TO MONITOR.
--- NOTE | 2021-09-02 20:02 | NUR ---
RN NOTES HYDRALAZINE 20MG IV GIVEN FOR BP 172/75, PULSE- 75. CONTINUE TO MONITOR
--- NOTE | 2021-09-02 21:16 | NUR ---
RN NOTES HEPARIN 5,000 UNITS HELD, HGB 6.7. NICOLE NAIR AWARE.
[2021-09-02] MEDS ORDERED: hydrALAZINE HCL IV 20 MG VIAL IV PRN (21:30)
[2021-09-02] MEDS: MICAFUNGIN SODIUM 100 MG in IV NS 0.9% 100 ML IV SCH (22:05)
[2021-09-02] MEDS: ATORVASTATIN 10 MG TABLET PO SCH (22:06)
[2021-09-03] VITALS (63 sets, daily range): BP systolic 111–198; BP diastolic 26–79
[2021-09-03] MEDS: IV D5/ 0.9% NACL 1,000 ML IV PRN (05:55)
[2021-09-03 05:58] LABS: BASOPHILS % (AUTO) 0.2 % (0.0-2.0); HEMATOCRIT 24 % (33-45); HEMOGLOBIN 7.9 g/dL (11.5-14.8); LYMPHOCYTES # (AUTO) 9.1 K/uL (0.8-4.8); LYMPHOCYTES % (AUTO) 29.4 % (20.0-44.0); MEAN CORPUSCULAR HGB CONC 32 g/dl (31.0-36.0); MEAN CORPUSCULAR VOLUME 86 fL (82-100); MONOCYTES % (AUTO) 3.2 % (2.0-12.0); NEUTROPHILS # (AUTO) 20.8 K/uL (1.8-8.9); NEUTROPHILS % (AUTO) 67.2 % (43.0-81.0); PLATELET COUNT (AUTO) 78 K/uL (150-450)
[2021-09-03 06:30] LABS: CARBON DIOXIDE 25 mmol/L (21-32); CHLORIDE 104 mmol/L (98-107); CREATININE 2.4 mg/dL (0.6-1.3); GLUCOSE 187 mg/dL (74-106); POTASSIUM 3.5 mmol/L (3.5-5.1); SODIUM SERUM 136 mmol/L (136-145); UREA NITROGEN, BLOOD 23 mg/dL (7-18)
[2021-09-03] MEDS ORDERED: IV NS 0.9% 1,000 ML IV PRN (07:00)
[2021-09-03] MEDS: IPRATROPIUM NEB FS 0.5 MG/2.5 ML AMPUL.NEB NEB SCH ×5 (07:46→23:30)
[2021-09-03] MEDS: ALBUTEROL FS 2.5 MG/3 ML VIAL.NEB NEB SCH ×5 (07:46→23:30)
[2021-09-03] MEDS: ACETYLCYSTEINE 20% SOLN 800 MG/4 ML VIAL NEB SCH ×5 (07:47→21:00)
--- NOTE | 2021-09-03 08:00 | NUR ---
RN NOTES received patient on simple face mask 5L, o2-95% on bedside monitor. patient A/A/O x3, no acute respiratory distress. infusing d5ns @100 ml/hr on KVNG midline intact. HD cath intact on right groin area, patient getting breathing treatment via hospitalist, Assist turn and reposition q 2hr. patient on NGT gravity feeding, due medication administered. Mishra intact output is 10ml. privet child care associate teacher next to the bed.
[2021-09-03] MEDS: ASCORBIC ACID 500 MG TABLET GT SCH (08:01)
[2021-09-03] MEDS: DILTIAZEM HCL CD 240 MG PO SCH (08:01)
[2021-09-03] MEDS: DEXAMETHASONE SOD PHOSPHATE 10 MG/ML VIAL IV SCH (08:01)
[2021-09-03] MEDS: CHOLECALCIFEROL (VITAMIN D 3) 400 UNIT TABLET PO SCH (08:01)
[2021-09-03] MEDS: CALCIUM CARBONATE (1250) 500 MG TABLET PO SCH ×2 (08:01→17:19)
[2021-09-03] MEDS: DRONABINOL (2.5 MG) 2.5 MG CAPSULE PO SCH ×2 (08:02→17:19)
[2021-09-03] MEDS: AMIODARONE HCL 200 MG TABLET PO SCH (08:02)
[2021-09-03] MEDS: VIT B CMPLX 3/FA/VIT C/BIOTIN 1 TAB TABLET PO SCH (08:03)
[2021-09-03] MEDS: NEPRO VAN 237 ML CAN NG SCH ×5 (08:03→22:50)
[2021-09-03] MEDS: Z GUARD REMEDY 4 OZ OINT TP SCH (08:04)
[2021-09-03] MEDS: HEPARIN SODIUM, PORCINE 5000 UNITS/1 ML VIAL SQ SCH ×2 (08:06→21:00)
[2021-09-03] MEDS: PANTOPRAZOLE 40 MG/PACK PACK NG SCH (08:15)
[2021-09-03] MEDS: hydrALAZINE HCL IV 20 MG VIAL IV PRN ×3 (08:33→15:40)
[2021-09-03] MEDS ORDERED: FOLIC ACID 1 MG TABLET GT SCH (09:00)
[2021-09-03] MEDS ORDERED: NEPRO VAN 237 ML CAN NG SCH (10:30)
[2021-09-03 11:20] LABS: BAND % (MANUAL) 3 % (0.0-5.0); LYMPHOCYTES % (MANUAL) 38 % (16-48); MONOCYTES % (MANUAL) 3 % (0-11.0); NEUTROPHILS % (MANUAL) 56 (42-76)
--- NOTE | 2021-09-03 12:29 | NUR ---
rn notes patient getting HD at this time on right HD cath on right groin area intact. The goal is 1000 ml to be removed per hospitalist NICOLE Bolden.
--- NOTE | 2021-09-03 13:57 | NUR ---
rn notes stop HD at this time because bp was droping bp 111/53, p-76, output was 700ml.
--- NOTE | 2021-09-03 15:40 | NUR ---
RN NOTES ADMINISTERED APRESOLIN 20MG/ML IV PUSH FOR BP 169/43, P-81, AND TYLENOL 650 ML VIA NGT FOR GENERALIZED PAIN 5/10 PER PATIENT REQUEST. WILL FOLLOW UP.
[2021-09-03] MEDS: ACETAMINOPHEN 650 MG/20.3 ML UDC GT PRN ×2 (15:42→22:18)
[2021-09-03] MEDS: CEFEPIME 1 GM in IV D5W 50 ML IV SCH (15:53)
[2021-09-03] MEDS: IV NS 0.9% 250 ML IV PRN (16:00)
--- NOTE | 2021-09-03 18:30 | NUR ---
RN NOTES PATIENT ON O2-3LNC, MEDICATION WERE ADMINISTERED FOR PAIN, AND BP EFFECTIVE. PRIVET GARMENT FITTER NEXT TO THE BED. ENDORSED ONCOMING NURSE KULDEEP.
--- NOTE | 2021-09-03 19:45 | NUR ---
ICU/CAR RESTORER ASKED ANAIS ZELAYA IF WE SHOULD GIVE THE ATROVENT AND VENTOLINE BREATHING TREATMENT, SINCE PT APPEARS TO BE ASLEEP. ALAINA SAID NO. HOLD BREATHING TREATMENT.
[2021-09-03] MEDS: MICAFUNGIN SODIUM 100 MG in IV NS 0.9% 100 ML IV SCH ×2 (21:14→21:20)
--- NOTE | 2021-09-03 21:15 | NUR ---
ICU/COMIC WRITER ASKED ANAIS ZELAYA IF WE SHOULD GIVE THE MUCOMYST BREATHING TREATMENT, SINCE PT APPEARS TO BE ASLEEP. ALAINA SAID NO. HOLD BREATHING TREATMENT.
--- NOTE | 2021-09-03 21:21 | NUR ---
ICU/FURNITURE MOVER DRIVER PER ANAIS ZELAYA, SAID TO HOLD HEPARINE PER STOVE MECHANIC ONCE TONIGHT. ORDERS RECIEVED AND CARRIED OUT.
[2021-09-03] MEDS: ATORVASTATIN 10 MG TABLET PO SCH (22:18)
--- NOTE | 2021-09-03 22:30 | NUR ---
ICU/CONCRETE VIBRATOR OPERATOR TYLENOL 650MG GIVEN VIA N/G TUBE FOR PAIN 5/10. POSITIVE PLACEMENT. WILL CONTINUE TO MONITOR THIS PT.
--- NOTE | 2021-09-03 23:45 | NUR ---
ICU/WINCH DRIVER ASKED ANAIS ZELAYA IF WE SHOULD GIVE THE ATROVENT AND VENTOLINE BREATHING TREATMENT, SINCE PT APPEARS TO BE ASLEEP. ALAINA SAID NO. HOLD BREATHING TREATMENT. WILL CONTINUE TO MONITOR THIS PT
[2021-09-04] VITALS (35 sets, daily range): BP systolic 110–164; BP diastolic 44–69
[2021-09-04] MEDS: ACETYLCYSTEINE 20% SOLN 800 MG/4 ML VIAL NEB SCH ×3 (01:00→09:22)
--- NOTE | 2021-09-04 01:10 | NUR ---
ICU/VALIDATION ANALYST ASKED ANAIS ZELAYA IF WE SHOULD GIVE THE MUCOMYST BREATHING TREATMENT, SINCE PT APPEARS TO BE ASLEEP. ALAINA SAID NO. HOLD BREATHING TREATMENT.
[2021-09-04] MEDS: IPRATROPIUM NEB FS 0.5 MG/2.5 ML AMPUL.NEB NEB SCH ×3 (04:32→09:22)
[2021-09-04] MEDS: ALBUTEROL FS 2.5 MG/3 ML VIAL.NEB NEB SCH ×3 (04:32→09:21)
[2021-09-04] MEDS: ACETAMINOPHEN 650 MG/20.3 ML UDC GT PRN ×3 (04:33→23:50)
--- NOTE | 2021-09-04 05:53 | NUR ---
RT AEROSOL HHN TX'S ARE NOT GIVEN BY RESP THERAPIST PER POSITIVE COVID PROTOCOLS.
[2021-09-04] MEDS: NEPRO VAN 237 ML CAN NG SCH ×5 (07:00→21:40)
--- NOTE | 2021-09-04 07:00 | NUR ---
RN NOTES RECEIVED PT ON BED, DRAWZY, OPENS EYES TO VERBAL STIMULI, FOLLOW SIMPLE COMMAND , ON 3 L O2 N/C , ON TELE SR , CABALLERO TO GRAVITY, NO URIN OUTPUT NOTED, R FEMORAL HD CATH AND L UPPER ARM MIDLINE SITE CLEAN. DRY AND INTACT, TEAM GUIDE AT THE BEDSIDE, NTG TUBE CLAMPED, SR UP x3, CALL LIGHT WITHIN EASY REACH, BED LOCKED AND IN LOWEST POSITION, CONTINUE TO MONITOR .
[2021-09-04 07:10] LABS: BASOPHILS # (AUTO) 0.2 K/uL (0.0-0.2); BASOPHILS % (AUTO) 0.5 % (0.0-2.0); HEMATOCRIT 26 % (33-45); HEMOGLOBIN 8.5 g/dL (11.5-14.8); LYMPHOCYTES % (AUTO) 27.9 % (20.0-44.0); MEAN CORPUSCULAR HGB CONC 33 g/dl (31.0-36.0); MEAN CORPUSCULAR VOLUME 87 fL (82-100); MONOCYTES # (AUTO) 1.2 K/uL (0.1-1.30); MONOCYTES % (AUTO) 3.2 % (2.0-12.0); NEUTROPHILS # (AUTO) 24.6 K/uL (1.8-8.9); NEUTROPHILS % (AUTO) 68.4 % (43.0-81.0); PLATELET COUNT (AUTO) 78 K/uL (150-450); RED BLOOD CELL COUNT(AUTO) 2.93 MIL/uL (4.0-5.2)
--- NOTE | 2021-09-04 07:33 | NUR ---
RT NOTE HHN TX NOT GIVEN DUE TO POSITIVE COVID RESULTS.
[2021-09-04 07:40] LABS: WHITE BLOOD COUNT (AUTO) 35.9 K/uL (4.3-11.0)
[2021-09-04 07:44] LABS: CALCIUM, SERUM 7.2 mg/dL (8.5-10.1); CARBON DIOXIDE 27 mmol/L (21-32); CHLORIDE 101 mmol/L (98-107); CREATININE 2.6 mg/dL (0.6-1.3); GLUCOSE 158 mg/dL (74-106); MAGNESIUM 1.8 mg/dL (1.8-2.4); PHOSPHORUS 2.3 mg/dL (2.5-4.9); POTASSIUM 3.4 mmol/L (3.5-5.1); SODIUM SERUM 137 mmol/L (136-145); UREA NITROGEN, BLOOD 31 mg/dL (7-18)
--- NOTE | 2021-09-04 08:00 | NUR ---
RN NOTES DR MIRANDA NOTIFIED REGARDING WBC 35.9 .
[2021-09-04] MEDS: PANTOPRAZOLE 40 MG/PACK PACK NG SCH (08:06)
[2021-09-04] MEDS: CALCIUM CARBONATE (1250) 500 MG TABLET PO SCH ×2 (08:08→16:19)
[2021-09-04] MEDS: DRONABINOL (2.5 MG) 2.5 MG CAPSULE PO SCH ×2 (08:08→16:19)
[2021-09-04] MEDS: DEXAMETHASONE SOD PHOSPHATE 10 MG/ML VIAL IV SCH (08:08)
[2021-09-04] MEDS: AMIODARONE HCL 200 MG TABLET PO SCH (08:08)
[2021-09-04] MEDS: ASCORBIC ACID 500 MG TABLET GT SCH (08:09)
[2021-09-04] MEDS: CHOLECALCIFEROL (VITAMIN D 3) 400 UNIT TABLET PO SCH (08:09)
[2021-09-04] MEDS: VIT B CMPLX 3/FA/VIT C/BIOTIN 1 TAB TABLET PO SCH (08:09)
[2021-09-04] MEDS: Z GUARD REMEDY 4 OZ OINT TP SCH (08:20)
[2021-09-04] MEDS: HEPARIN SODIUM, PORCINE 5000 UNITS/1 ML VIAL SQ SCH ×2 (08:22→21:00)
--- NOTE | 2021-09-04 10:00 | NUR ---
RN NOTES HEPARIN SQ HELD PER DR MIRANDA .
[2021-09-04 10:25] LABS: BAND % (MANUAL) 2 % (0.0-5.0); LYMPHOCYTES % (MANUAL) 30 % (16-48); MONOCYTES % (MANUAL) 5 % (0-11.0); NEUTROPHILS % (MANUAL) 63 (42-76)
[2021-09-04] MEDS: DILTIAZEM HCL 30 MG TABLET PO SCH ×3 (11:08→23:46)
--- NOTE | 2021-09-04 11:40 | NUR ---
RN NOTES REPORT GIVEN TO MELISSA YBARRA FOR CONTINUITY OF CARE.
[2021-09-04] MEDS ORDERED: GUAIFENESIN LA 600 MG TABLET.SA PO SCH (12:00)
[2021-09-04] MEDS: GUAIFENESIN 300 MG/15 ML UDC PO SCH ×3 (12:20→23:46)
[2021-09-04] MEDS ORDERED: IPRATROPIUM/ALBUTEROL INHALER IH SCH (13:30)
[2021-09-04] MEDS: IV NS 0.9% 250 ML IV PRN (13:36)
[2021-09-04] MEDS: IPRATROPIUM/ALBUTEROL INHALER IH PRN ×2 (13:54→23:52)
[2021-09-04] MEDS: CEFEPIME 1 GM in IV D5W 50 ML IV SCH (15:05)
[2021-09-04] MEDS ORDERED: PHENOL/SODIUM PHENOLATE 1 BOTTLE MM PRN (16:30)
[2021-09-04] MEDS ORDERED: NEUTRA PHOS 1 POWD.PACKET PO ONE (18:00)
--- NOTE | 2021-09-04 18:25 | NUR ---
ICU/RN PT IS POSITIVE FOR DVT ON THE RIGHT UPPER ARM.JOANIE Finley. /DNP NOTIFIED.DUE MEDS ARE GIVEN ORDERED.
--- NOTE | 2021-09-04 20:30 | NUR ---
ICU/GROUND INSTRUCTOR ADVANCED ANAIS RIVERA, GAVE ORDERS TO NOT GIVE HEPARIN SQ WHICH IS DUE AT 2100. CHARGE NURSE MADE AWARE.
[2021-09-04] MEDS ORDERED: ALBUMIN 25% 50 ML IV ONE ×2 (21:55→21:56)
[2021-09-04] MEDS: ALBUMIN 25% 25 GM in PREMIX 1 EA IV PRN (22:02)
--- NOTE | 2021-09-04 22:18 | NUR ---
MED NOTE: ALL MEDS ADMINISTERED UNDER VERIFIED DOSES.
--- NOTE | 2021-09-04 22:53 | NUR ---
ICU/OIL WELL DIRECTIONAL SURVEYOR RADIOLOGY CALLED GAVE REPORT TO CHARGE NURSE ABOUT RIGHT ARM DVT, THIS WAS GIVEN TO JOANIE, WHO GAVE NO NEW ORDERS.
--- NOTE | 2021-09-04 23:02 | NUR ---
ICU/RETAIL SALESMAN UNABLE TO GIVE 2200 MEDICATION DUE TO HD. WILL GIVE ONCE HD IS COMPLETED.
[2021-09-04] MEDS: MICAFUNGIN SODIUM 100 MG in IV NS 0.9% 100 ML IV SCH (23:41)
[2021-09-04] MEDS: ATORVASTATIN 10 MG TABLET PO SCH (23:46)
[2021-09-05] VITALS (24 sets, daily range): BP systolic 131–169; BP diastolic 41–61
--- NOTE | 2021-09-05 01:00 | NUR ---
ICU/NURSE PRN TYLENOL 650MG GIVEN VIA N/G TUBE FOR PAIN 5/10. POSITIVE PLACEMENT. WILL CONTINUE TO MONITOR THIS PT.
--- NOTE | 2021-09-05 01:30 | NUR ---
ICU/MILLINERY DEPARTMENT MANAGER PRIVATE SITTER AT BEDSIDE WAS INSTRUCTED HOW TO PROVIDE ORAL CARE. THIS WAS VERBALIZED BACK.
[2021-09-05] MEDS ORDERED: IPRATROPIUM/ALBUTEROL INHALER IH PRN ×2 (02:00→16:56)
[2021-09-05] MEDS: GUAIFENESIN 300 MG/15 ML UDC PO SCH ×3 (06:00→17:03)
[2021-09-05] MEDS: ACETAMINOPHEN 650 MG/20.3 ML UDC GT PRN (06:01)
[2021-09-05] MEDS: DILTIAZEM HCL 30 MG TABLET PO SCH ×3 (06:01→17:02)
[2021-09-05 06:32] LABS: BASOPHILS # (AUTO) 0.1 K/uL (0.0-0.2); BASOPHILS % (AUTO) 0.2 % (0.0-2.0); EOSINOPHILS % (AUTO) 0.1 % (0.0-6.0); LYMPHOCYTES # (AUTO) 7.5 K/uL (0.8-4.8); LYMPHOCYTES % (AUTO) 22.1 % (20.0-44.0); MEAN CORPUSCULAR HGB CONC 33 g/dl (31.0-36.0); MEAN CORPUSCULAR VOLUME 86 fL (82-100); MONOCYTES # (AUTO) 1.5 K/uL (0.1-1.30); MONOCYTES % (AUTO) 4.3 % (2.0-12.0); NEUTROPHILS % (AUTO) 73.3 % (43.0-81.0); PLATELET COUNT (AUTO) 61 K/uL (150-450); RED BLOOD CELL COUNT(AUTO) 2.36 MIL/uL (4.0-5.2)
[2021-09-05 06:46] LABS: CALCIUM, SERUM 7.3 mg/dL (8.5-10.1); CARBON DIOXIDE 27 mmol/L (21-32); CHLORIDE 100 mmol/L (98-107); CREATININE 2.5 mg/dL (0.6-1.3); GLUCOSE 164 mg/dL (74-106); MAGNESIUM 1.8 mg/dL (1.8-2.4); PHOSPHORUS 2.7 mg/dL (2.5-4.9); POTASSIUM 3.2 mmol/L (3.5-5.1); SODIUM SERUM 137 mmol/L (136-145); UREA NITROGEN, BLOOD 33 mg/dL (7-18)
--- NOTE | 2021-09-05 07:00 | NUR ---
RN NOTES RECEIVED PT ON BED, DRAWZY, OPENS EYES TO VERBAL STIMULI, FOLLOW SIMPLE COMMAND , ON 2 L O2 N/C , ON TELE SR , HR IN 70'S , CABALLERO TO GRAVITY, NO URINE OUTPUT NOTED, R FEMORAL HD CATH AND L UPPER ARM MIDLINE SITE CLEAN. DRY AND INTACT, CLOTHING SALES ASSISTANT AT THE BEDSIDE, NTG TUBE CLAMPED, SR UP x3, CALL LIGHT WITHIN EASY REACH, BED LOCKED AND IN LOWEST POSITION, CONTINUE TO MONITOR .
--- NOTE | 2021-09-05 07:00 | NUR ---
ICU/GAS PIPE LAYER TYLENOL 650MG GIVEN VIA N/G TUBE FOR PAIN 5/10. POSITIVE PLACEMENT. WILL CONTINUE TO MONITOR THIS PT.
[2021-09-05 07:59] LABS: HEMATOCRIT 20 % (33-45); HEMOGLOBIN 6.7 g/dL (11.5-14.8); WHITE BLOOD COUNT (AUTO) 34.1 K/uL (4.3-11.0)
[2021-09-05] MEDS: ASCORBIC ACID 500 MG TABLET GT SCH (08:24)
[2021-09-05] MEDS: CHOLECALCIFEROL (VITAMIN D 3) 400 UNIT TABLET PO SCH (08:24)
[2021-09-05] MEDS: PANTOPRAZOLE 40 MG/PACK PACK NG SCH (08:24)
[2021-09-05] MEDS: CALCIUM CARBONATE (1250) 500 MG TABLET PO SCH ×2 (08:24→16:44)
[2021-09-05] MEDS: DRONABINOL (2.5 MG) 2.5 MG CAPSULE PO SCH ×2 (08:24→16:44)
[2021-09-05] MEDS: VIT B CMPLX 3/FA/VIT C/BIOTIN 1 TAB TABLET PO SCH (08:24)
[2021-09-05] MEDS: DEXAMETHASONE SOD PHOSPHATE 10 MG/ML VIAL IV SCH (08:24)
[2021-09-05] MEDS: AMIODARONE HCL 200 MG TABLET PO SCH (08:24)
[2021-09-05] MEDS: Z GUARD REMEDY 4 OZ OINT TP SCH (08:25)
[2021-09-05] MEDS: NEPRO VAN 237 ML CAN NG SCH ×2 (08:25→11:00)
[2021-09-05] MEDS ORDERED: diphenhydrAMINE HCL 50 MG/ML VIAL IV ONE ×3 (09:00→20:00)
--- NOTE | 2021-09-05 09:00 | NUR ---
RN NOTES MD NOTIFED REGARDING LOW H/H.
[2021-09-05 09:08] LABS: HEMOGLOBIN 6.4 g/dL (11.5-14.8)
[2021-09-05] MEDS ORDERED: ACETAMINOPHEN 650 MG/20.3 ML UDC PO ONE ×3 (09:30→20:00)
[2021-09-05] MEDS: POTASSIUM CL. PREMIX PERIPHER. 50 ML IV SCH ×3 (09:49→12:37)
[2021-09-05] MEDS: TRELEGY ELLIPTA INH SCH (09:57)
[2021-09-05 10:46] LABS: D-DIMER 6.2 mg/L(FEU (0.17-0.50)
--- NOTE | 2021-09-05 10:53 | NUR ---
RN NOTES PT TRANSFERED TO ROOM 117-1 [facility] STATUS , VIA ACLS PROTOCAL IN STABLE CONDITION, REPORT GIVEN TO KIRA YBARRA FOR CONTINUITY OF CARE .
--- NOTE | 2021-09-05 11:00 | NUR ---
REEL FED PRINTER OPENING NOTE RECEIVED PATIENT FROM ICU, ALERT, ORIENTED X 3. WITH O2 VIA NASAL CANNULA AT 3L/MIN WITH OXYGEN SATURATION AT 98%. WITH NGT INTACT. WITH CATHETER INTACT AND DRAINING TO CLEAR YELLOW URINE. WITH LEFT UPPER ARM MIDLINE INTACT AND PATENT. WITH RIGHT FEMORAL HD CATHETER INTACT AND COVERED WITH DRY DRESSING. PATIENT IS ACCOMPANIED AT BEDSIDE BY KRISHAN NAIR NP AND A FEMALE CAREGIVER. WILL CONTINUE TO MONITOR THROUGHOUT SHIFT.
[2021-09-05] MEDS: hydrALAZINE HCL IV 20 MG VIAL IV PRN ×2 (11:24→14:09)
[2021-09-05 12:00] LABS: BAND % (MANUAL) 4 % (0.0-5.0); LYMPHOCYTES % (MANUAL) 15 % (16-48); MONOCYTES % (MANUAL) 1 % (0-11.0); NEUTROPHILS % (MANUAL) 80 (42-76)
--- NOTE | 2021-09-05 15:16 | NUR ---
RN NOTE TYLENOL AND BENADRYL NOT GIVEN SINCE BLOOD TRANSFUSION WILL BE DONE DURING DIALYSIS.
[2021-09-05] MEDS: CEFEPIME 1 GM in IV D5W 50 ML IV SCH (16:23)
[2021-09-05] MEDS ORDERED: NEPRO 1,000 ML BOTTLE GT PRN (17:00)
--- NOTE | 2021-09-05 18:47 | NUR ---
RN CLOSING NOTE PATIENT IS RESTING COMFORTABLY IN BED AND REMAINED STABLE THROUGHOUT SHIFT, SATTING AT 96% AT 3L OXYGEN VIA NASAL CANNULA. PATIENT WAS STARTED ON NEPRO FEEDING, WITH INITIAL RATE OF 20 ML/HR. CABALLERO CATHETER INTACT DRAINING TO SCANT AMOUNT OF URINE. IV LINE REMAINS INTACT AND PATENT. PATIENT WAS KEPT COMFORTABLE THROUGHOUT SHIFT. ALL HOSPITAL PRECAUTIONS IN PLACE. WILL ENDORSE TO TOY PARTS FORMER SUPERVISOR NURSE.
--- NOTE | 2021-09-05 20:00 | NUR ---
RN NOTE RECEIVED PT AWAKE. AOX2. ON O2 AT 3L SATING 96%. NOT IN ANY DISTRESS. DENIES ANY PAIN AT THIS TIME. NGTUBE IN PLACE, AUSCULTATED FOR PLACEMENT. ON GT FEEDING OF NEPRO, NO RESIDUAL NOTED. KEPT HOB ELEVATED. PT SCHEDULED FOR DIALYSIS. WILL CONTINUE TO MONITOR.
[2021-09-05] MEDS: ATORVASTATIN 10 MG TABLET PO SCH (23:00)
--- NOTE | 2021-09-05 23:00 | NUR ---
RN NOTE PT TO START DIALYSIS. NOTIFIED HD NURSE, NEED TO GIVE 1 UNIT OF PRBC.
[2021-09-05] MEDS ORDERED: ALBUMIN 25% 100 ML IV ONE (23:16)
--- NOTE | 2021-09-05 23:20 | NUR ---
RN NOTE PT STARTED DIALYSIS.
[2021-09-06] VITALS (9 sets, daily range): BP systolic 104–169; BP diastolic 42–53
--- NOTE | 2021-09-06 | NUR ---
RN NOTE DUE CARDIZEM HELD DUE TO PT GETTING DIALYSIS.
--- NOTE | 2021-09-06 00:43 | NUR ---
RN NOTE BLOOD TRANSFUSION STARTED BY HD NURSE. PER IT RISK AND ASSURANCE MANAGER JOANIE MELISSA NOT TO GIVE TYLENOL AND BENADRYL PT IS GETTING DIALYSIS
[2021-09-06] MEDS: GUAIFENESIN 300 MG/15 ML UDC PO SCH ×4 (01:00→17:23)
--- NOTE | 2021-09-06 01:12 | NUR ---
RN NOTE PT DONE WITH BLOOD TRANSFUSION GIVEN WITH HD,TOLERATED. NO SIGNS OF REACTION NOTED.
[2021-09-06] MEDS: MICAFUNGIN SODIUM 100 MG in IV NS 0.9% 100 ML IV SCH ×2 (02:47→11:26)
--- NOTE | 2021-09-06 03:06 | NUR ---
RN NOTE PT DONE WITH DIALYSIS AT 0220. PT DENIES ANY PAIN OR SOB. TOLERATING GT FEEDING AT 20ML/HR, INCREASED RATE TO 30ML/HR. KEPT HOB ELEVATED. WILL CONTINUE TO MONITOR.
[2021-09-06] MEDS: DILTIAZEM HCL 30 MG TABLET PO SCH ×4 (05:48→17:23)
--- NOTE | 2021-09-06 06:54 | NUR ---
RN NOTE PT SLEEPING, AROUSES EASILY. TOLERATING 3L O2. NOT IN ANY DISTRESS, SR ON TELE MONITOR, HR 70. PT DENIES SOB OR PAIN. PT CONGESTED. PRIVATE RN AT BEDSIDE, SUCTIONED NEEDED. PT TOLERATES GT FEEDING, INCREASED RATE TO GOAL RATE 45ML/HR. KEPT HOB ELEVATED. CABALLERO IN PLACE WITH 15ML URINE OUTPUT. TURNED AND REPOSITIONED.
[2021-09-06 07:04] LABS: BASOPHILS # (AUTO) 0.1 K/uL (0.0-0.2); BASOPHILS % (AUTO) 0.3 % (0.0-2.0); HEMATOCRIT 27 % (33-45); HEMOGLOBIN 8.9 g/dL (11.5-14.8); LYMPHOCYTES # (AUTO) 9.5 K/uL (0.8-4.8); LYMPHOCYTES % (AUTO) 23.8 % (20.0-44.0); MEAN CORPUSCULAR HGB CONC 33 g/dl (31.0-36.0); MEAN CORPUSCULAR VOLUME 86 fL (82-100); NEUTROPHILS # (AUTO) 28.3 K/uL (1.8-8.9); NEUTROPHILS % (AUTO) 70.9 % (43.0-81.0); PLATELET COUNT (AUTO) 62 K/uL (150-450); RED BLOOD CELL COUNT(AUTO) 3.14 MIL/uL (4.0-5.2)
--- NOTE | 2021-09-06 07:30 | NUR ---
RN OPENING NOTE PATIENT IS ASLEEP IN BED BUT EASILY AROUSABLE, ALERT, ORIENTED X 3. WITH O2 VIA NASAL CANNULA AT 3L/MIN. SINUS RHYTHM ON EXCELSIOR MACHINE TENDER. WITH NGT IN PLACE INFUSING WITH NEPRO AT 75 CC/HR. WITH LEFT UPPER ARM MIDLINE INTACT AND PATENT. WITH RIGHT FEMORAL DIALYSIS CATHETER COVERED WITH DRY DRESSING. RHONCHI UPON AUSCULTATION, BREATHING UNLABORED, NOT IN ANY FORM OF DISTRESS. BED IS LOCKED IN LOWEST POSITION, 3 SIDE RAILS UP, CALL LIGHT WITHIN REACH. WILL CONTINUE TO MONITOR THROUGHOUT SHIFT.
[2021-09-06 08:01] LABS: CALCIUM, SERUM 7.4 mg/dL (8.5-10.1); CARBON DIOXIDE 24 mmol/L (21-32); CHLORIDE 97 mmol/L (98-107); CREATININE 2.3 mg/dL (0.6-1.3); GLUCOSE 156 mg/dL (74-106); POTASSIUM 3.7 mmol/L (3.5-5.1); SODIUM SERUM 134 mmol/L (136-145); UREA NITROGEN, BLOOD 35 mg/dL (7-18)
[2021-09-06] MEDS: VIT B CMPLX 3/FA/VIT C/BIOTIN 1 TAB TABLET PO SCH (08:56)
[2021-09-06] MEDS: AMIODARONE HCL 200 MG TABLET PO SCH (08:56)
[2021-09-06] MEDS: CALCIUM CARBONATE (1250) 500 MG TABLET PO SCH ×2 (08:57→17:22)
[2021-09-06] MEDS: PANTOPRAZOLE 40 MG/PACK PACK NG SCH (08:57)
[2021-09-06] MEDS: CHOLECALCIFEROL (VITAMIN D 3) 400 UNIT TABLET PO SCH (08:57)
[2021-09-06] MEDS: DRONABINOL (2.5 MG) 2.5 MG CAPSULE PO SCH ×2 (08:58→17:22)
[2021-09-06] MEDS: ASCORBIC ACID 500 MG TABLET GT SCH (08:58)
[2021-09-06] MEDS: Z GUARD REMEDY 4 OZ OINT TP SCH (08:59)
[2021-09-06] MEDS: DEXAMETHASONE SOD PHOSPHATE 10 MG/ML VIAL IV SCH (08:59)
[2021-09-06] MEDS: ACETAMINOPHEN 650 MG/20.3 ML UDC GT PRN ×2 (09:14→17:22)
[2021-09-06] MEDS: hydrALAZINE HCL IV 20 MG VIAL IV PRN ×2 (09:15→22:15)
[2021-09-06] MEDS: TRELEGY ELLIPTA INH SCH (09:37)
[2021-09-06 10:20] LABS: WHITE BLOOD COUNT (AUTO) 39.9 K/uL (4.3-11.0)
--- NOTE | 2021-09-06 10:52 | NUR ---
RN NOTE PATIENT HAS OWN PERSONAL NURSES AT BEDSIDE. PER PATIENT REQUEST, PERSONAL REGISTERED NURSES WILL BE THE ONES TO RENDER CARE (SUCH WOUND CARE,TURNING, SKIN CARE, ETC.). ONLY THOSE WHO ARE INVOLVED IN PATIENT'S CARE ARE ALLOWED TO ENTER THE ROOM.
[2021-09-06] MEDS ORDERED: HEPARIN INFUSION/D5W 500 ML IV PRN (11:00)
[2021-09-06 11:21] LABS: BAND % (MANUAL) 1 % (0.0-5.0); LYMPHOCYTES % (MANUAL) 30 % (16-48); MONOCYTES % (MANUAL) 2 % (0-11.0); NEUTROPHILS % (MANUAL) 67 (42-76)
--- NOTE | 2021-09-06 11:36 | NUR ---
RN NOTE ORDER FOR HEPARIN DRIP CANCELLED PER BANDAR NAIR'S ORDER. STATED IN HER MESSAGE VIA TEXT, "ORALIA DOESN'T BELIEVE THIS IS NECESSARY."
[2021-09-06] MEDS: CEFEPIME 2 GM in IV D5W 100 ML IV SCH (12:20)
[2021-09-06] MEDS: HEPARIN SODIUM, PORCINE 5000 UNITS/1 ML VIAL SQ SCH ×2 (13:50→22:04)
[2021-09-06] MEDS: ALBUMIN 25% 25 GM in PREMIX 1 EA IV PRN (15:42)
[2021-09-06] MEDS ORDERED: NYSTATIN (PYXIS) 500,000 UNIT/5 ML ORAL.SUSP PO SCH (18:30)
[2021-09-06] MEDS ORDERED: CHLORHEXIDINE GLUCONATE 15 ML UDC MM SCH (18:30)
--- NOTE | 2021-09-06 18:47 | NUR ---
RN CLOSING NOTE PATIENT IS RESTING COMFORTABLY IN BED AND REMAINED STABLE THROUGHOUT SHIFT, SATTING AT 95% AT 3L OXYGEN VIA NASAL CANNULA. NG TUBE IN PLACE. CABALLERO CATHETER INTACT DRAINING TO SCANT AMOUNT OF URINE. IV LINE REMAINS INTACT AND PATENT. PATIENT WAS KEPT COMFORTABLE THROUGHOUT SHIFT. ALL HOSPITAL PRECAUTIONS IN PLACE. WILL ENDORSE TO CLOTHER IN NURSE.
--- NOTE | 2021-09-06 19:05 | NUR ---
RN OPENING NOTES RECEIVED PATIENT ON BED, AWAKE, A/0 X 2-3 WITH PERIOD OF CONFUSION. ON NASAL CANULA@ 3LPM LPM SATING AT 96%. RESPIRATORY EVEN AND UNLABORED, NO SOB NOTED. AFEBRILE, NO S/S OF DISTRESS NOTED. PATIENT KVNG MIDLINE, FLUSHED WITH NS, NO S/S OF INFILTRATION NOTED AT SITE. NGT PATENT INTACT, VERIFIED PLACE,ENT BY AUSCULTATION, NOTED WITH 30ML RESIDUAL, PUSH IT BACK, TOLERATED WELL. RIGHT FEMORAL HD CATHETER, NO BLEEDING AT SITE. CABALLERO CATHETER WITH NO URINE OUTPUT. ALL SAFETY MEASURE PROVIDED. BED IN LOWEST POSITION, LOCKED. BED ALARM ARMED. CONTINUE TO MONITOR.
[2021-09-06] MEDS: ATORVASTATIN 10 MG TABLET PO SCH (22:03)
--- NOTE | 2021-09-06 22:20 | NUR ---
RN NOTES PATIENT NOTED WITH BLOOD PRESSURE 163/46, PULSE- 74, HYDRALAZINE 20MG IV GIVEN, CONTINUE TO MONITOR.
[2021-09-07] VITALS (10 sets, daily range): BP systolic 103–165; BP diastolic 45–59
[2021-09-07] MEDS: DILTIAZEM HCL 30 MG TABLET PO SCH ×4 (00:56→17:24)
[2021-09-07] MEDS: GUAIFENESIN 300 MG/15 ML UDC PO SCH ×4 (00:56→17:17)
[2021-09-07] MEDS: NYSTATIN (PYXIS) 500,000 UNIT/5 ML ORAL.SUSP PO SCH ×4 (00:57→17:18)
[2021-09-07] MEDS: HEPARIN SODIUM, PORCINE 5000 UNITS/1 ML VIAL SQ SCH ×3 (06:20→22:43)
[2021-09-07 07:14] LABS: BASOPHILS # (AUTO) 0.1 K/uL (0.0-0.2); BASOPHILS % (AUTO) 0.2 % (0.0-2.0); HEMATOCRIT 24 % (33-45); HEMOGLOBIN 7.7 g/dL (11.5-14.8); LYMPHOCYTES # (AUTO) 10.5 K/uL (0.8-4.8); LYMPHOCYTES % (AUTO) 23.8 % (20.0-44.0); MEAN CORPUSCULAR HGB CONC 32 g/dl (31.0-36.0); MEAN CORPUSCULAR VOLUME 87 fL (82-100); MONOCYTES # (AUTO) 2.5 K/uL (0.1-1.30); MONOCYTES % (AUTO) 5.7 % (2.0-12.0); NEUTROPHILS # (AUTO) 31.1 K/uL (1.8-8.9); NEUTROPHILS % (AUTO) 70.3 % (43.0-81.0); PLATELET COUNT (AUTO) 80 K/uL (150-450); RED BLOOD CELL COUNT(AUTO) 2.74 MIL/uL (4.0-5.2)
--- NOTE | 2021-09-07 07:30 | NUR ---
RN OPENING NOTE PATIENT IS ASLEEP IN BED BUT EASILY AROUSABLE, ALERT, ORIENTED X 3. WITH O2 VIA NASAL CANNULA AT 3L/MIN. SINUS RHYTHM ON CORRECTIONAL CASE MANAGER. WITH NGT INTACT AND PATENT. WITH LEFT UPPER ARM MIDLINE INTACT AND PATENT. WITH RIGHT FEMORAL DIALYSIS CATHETER COVERED WITH DRY DRESSING. CABALLERO CATHETER IN PLACE AND IS ATTACHED TO URINE BAG DRAINING TO CLEAR YELLOW URINE. RHONCHI UPON AUSCULTATION, BREATHING UNLABORED, NOT IN ANY FORM OF DISTRESS. EDEMA NOTED ON BOTH EXTREMITIES. PATIENT IS ACCOMPANIED BY PERSONAL NURSE AT BEDSIDE. ISOLATION PRECAUTION IN PLACE. BED IS LOCKED IN LOWEST POSITION, 3 SIDE RAILS UP, CALL LIGHT WITHIN REACH. WILL CONTINUE TO MONITOR THROUGHOUT SHIFT.
[2021-09-07 07:45] LABS: WHITE BLOOD COUNT (AUTO) 44.2 K/uL (4.3-11.0)
[2021-09-07 07:57] LABS: CALCIUM, SERUM 7.8 mg/dL (8.5-10.1); CARBON DIOXIDE 24 mmol/L (21-32); CHLORIDE 100 mmol/L (98-107); CREATININE 2.2 mg/dL (0.6-1.3); GLUCOSE 155 mg/dL (74-106); MAGNESIUM 1.9 mg/dL (1.8-2.4); PHOSPHORUS 2.4 mg/dL (2.5-4.9); POTASSIUM 3.9 mmol/L (3.5-5.1); SODIUM SERUM 135 mmol/L (136-145); UREA NITROGEN, BLOOD 43 mg/dL (7-18)
[2021-09-07] MEDS: ASCORBIC ACID 500 MG TABLET GT SCH (08:07)
[2021-09-07] MEDS: CALCIUM CARBONATE (1250) 500 MG TABLET PO SCH ×2 (08:07→17:18)
[2021-09-07] MEDS: DEXAMETHASONE SOD PHOSPHATE 10 MG/ML VIAL IV SCH (08:09)
[2021-09-07] MEDS: VIT B CMPLX 3/FA/VIT C/BIOTIN 1 TAB TABLET PO SCH (08:10)
[2021-09-07] MEDS: PANTOPRAZOLE 40 MG/PACK PACK NG SCH (08:11)
[2021-09-07] MEDS: DRONABINOL (2.5 MG) 2.5 MG CAPSULE PO SCH ×2 (08:11→17:17)
[2021-09-07] MEDS: AMIODARONE HCL 200 MG TABLET PO SCH (08:11)
[2021-09-07] MEDS: CHLORHEXIDINE GLUCONATE 15 ML UDC MM SCH ×2 (08:11→22:41)
[2021-09-07] MEDS: CHOLECALCIFEROL (VITAMIN D 3) 400 UNIT TABLET PO SCH (08:12)
[2021-09-07] MEDS: Z GUARD REMEDY 4 OZ OINT TP SCH (08:13)
[2021-09-07] MEDS: TRELEGY ELLIPTA INH SCH (08:13)
[2021-09-07] MEDS: ACETAMINOPHEN 650 MG/20.3 ML UDC GT PRN ×2 (08:14→17:17)
[2021-09-07 09:35] LABS: BAND % (MANUAL) 2 % (0.0-5.0); LYMPHOCYTES % (MANUAL) 27 % (16-48); MONOCYTES % (MANUAL) 6 % (0-11.0); NEUTROPHILS % (MANUAL) 65 (42-76)
[2021-09-07] MEDS ORDERED: [UNRECOGNIZED DRUG - OTHER] NG SCH (11:00)
[2021-09-07] MEDS: CEFEPIME 2 GM in IV D5W 100 ML IV SCH (11:20)
[2021-09-07] MEDS: MICAFUNGIN SODIUM 100 MG in IV NS 0.9% 100 ML IV SCH (12:23)
[2021-09-07] MEDS: ALBUMIN 25% 25 GM in PREMIX 1 EA IV PRN (13:53)
[2021-09-07] MEDS ORDERED: POTASSIUM CHLORIDE 20 MEQ POWDER PACKET NG SCH (16:00)
[2021-09-07] MEDS: [UNRECOGNIZED DRUG - OTHER] NG SCH ×2 (17:27→21:00)
--- NOTE | 2021-09-07 19:00 | NUR ---
RN NOTE RECEIVED PATIENT IN BED, SOME LETHARGY NOTED, ON HIGH BOONE'S, PRIVATE RN/CG AND KRISHAN ASSEMBLY MANAGER AT BEDSIDE . PATIENT ABLE TO MAKE NEEDS KNOWN. PATIENT APPEARS SHORT OF BREATH, ON 4L VIA NC, SATURATION AT 97%. SR ON THE MONITOR, HR IS 76. KVNG MIDLINE PATENT AND FLUSHING WELL, R FEMORAL HD CATH IN PLACE, NO S/S OF INFECTION OR BLEEDING NOTED. CABALLERO CATHETER TO GRAVITY DRAINING TO A CLEAR, YELLOW OUTPUT. SAFETY MEASURES IMPLEMENTED. PATIENT BED ALARM IS ON. HEAD OF BED ELEVATED. BED IS LOCKED, IN LOWEST POSITION AND SIDE RAILS UP. CALL LIGHT WITHIN REACH OF THE PATIENT. WILL CONTINUE TO MONITOR AND REASSESS FOR ANY CHANGES.
--- NOTE | 2021-09-07 19:04 | NUR ---
RN CLOSING NOTE PATIENT IS RESTING COMFORTABLY IN BED AND REMAINED STABLE THROUGHOUT SHIFT, SATTING AT 97% AT 3L OXYGEN VIA NASAL CANNULA. NG TUBE IN PLACE. CABALLERO CATHETER INTACT DRAINING TO SCANT AMOUNT OF URINE. IV LINE REMAINS INTACT AND PATENT. PATIENT WAS KEPT COMFORTABLE THROUGHOUT SHIFT. ALL HOSPITAL PRECAUTIONS IN PLACE. WILL ENDORSE TO BURN OUT TENDER LACE NURSE.
[2021-09-07 20:57] LABS: ABG OXYGEN SATURATION 92.8 % (92.0-98.5); ABG PH 7.199 (7.350-7.450); ABG PO2 70.3 mmHg (75.0-100.0); AaDO2 109.8 mmHg; COHb 0.8 % (0.5-1.5); MetHb 0.2 % (0.0-1.5); O2Hb 91.9 % (94.0-97.0); SITE, ABG Left Radial; VENT MODE, BG Nasal Cannula
--- NOTE | 2021-09-07 21:30 | NUR ---
RN NOTE PATIENT TRANSFERRED TO ICU VIA ACLS PROTOCOL. KRISHAN VETERINARY LABORATORY TECHNICIAN AND RT AT BEDSIDE. REPORT GIVEN TO ANGELI YBARRA FOR KULDEEP.
--- NOTE | 2021-09-07 21:30 | NUR ---
RT NOTE LATE ENTRY PT REC'D IN [facility] UNIT ON 4LNC. STAT ABG TAKEN AND CRITICAL RESULTS REPORTED TO JOANIE PORTILLO. PT TO BE TRANSFERRED TO ICU AND PLACED ON BIPAP ON NOTED SETTINGS GIVEN FROM DR ZENG. PT PLACED ON BIPAP AND MEPILEX IN PLACE. ABG TO BE TAKEN WITHIN 2 HRS ON BIPAP PER DR ZENG ORDERS. AMBU BAG AT BEDSIDE. BIPAP PLUGGED INTO RED OUTLET. ALARMS ARE SET AND AUDIBLE. WILL CONTINUE TO MONITOR CLOSELY. Addendum: 09/07/21 at 2209 by HEMAL AQUINO RT Amended: Links added.
--- NOTE | 2021-09-07 21:31 | NUR ---
RN NOTES RECEIVED REPORT FROM [facility] NURSE SANTILLAN FOR CONTINUITY OF CARE.
--- NOTE | 2021-09-07 21:45 | NUR ---
RN NOTES HELD ATIF RENAL SUPPORT, PATIENT CURRENTLY ON BIPAP.
[2021-09-07] MEDS: ATORVASTATIN 10 MG TABLET PO SCH (22:41)
[2021-09-08] VITALS (49 sets, daily range): BP systolic 74–181; BP diastolic 37–87
--- NOTE | 2021-09-08 | NUR ---
RN NOTES CARDIZEM 30MG PO, ROBITUSSIN 300MG PO, NYSTATIN 500,000 UNITS ORAL SUSPENSION DUE AT 0000, DON'T GIVE IT PER DNP KRISHAN NAIR, PATIENT CURRENTLY ON BIPAP
[2021-09-08 00:27] LABS: ABG OXYGEN SATURATION 94.7 % (92.0-98.5); ABG PCO2 49.2 mmHg (35.0-45.0); ABG PH 7.294 (7.350-7.450); ABG PO2 75.2 mmHg (75.0-100.0); AaDO2 80.9 mmHg; COHb 0.8 % (0.5-1.5); MetHb 0.1 % (0.0-1.5); O2Hb 93.8 % (94.0-97.0); SITE, ABG Left Radial; VENT MODE, BG Bipap 15/5 30% RR20
[2021-09-08] MEDS: HEPARIN SODIUM, PORCINE 5000 UNITS/1 ML VIAL SQ SCH ×3 (05:55→21:00)
[2021-09-08] MEDS: GUAIFENESIN 300 MG/15 ML UDC PO SCH ×2 (06:00)
[2021-09-08] MEDS: DILTIAZEM HCL 30 MG TABLET PO SCH ×5 (06:00→23:57)
[2021-09-08] MEDS: NYSTATIN (PYXIS) 500,000 UNIT/5 ML ORAL.SUSP PO SCH ×6 (06:00→23:37)
--- NOTE | 2021-09-08 06:00 | NUR ---
RN NOTES CARDIZEM 30MG PO, ROBITUSSIN 300MG PO, NYSTATIN 500,000 UNITS ORAL SUSPENSION DUE AT 0600, DON'T GIVE IT PER DNP KRISHAN NAIR, PATIENT CURRENTLY ON BIPAP
[2021-09-08] MEDS: [UNRECOGNIZED DRUG - OTHER] NG SCH ×5 (07:00→21:00)
--- NOTE | 2021-09-08 07:20 | NUR ---
RN NOTES PATIENT SLEEPING, REMAIN STABLE, ON BIPAP, SETTING TOLERATED WELL. RESPIRATORY EVEN AND UNLABORED, NO SOB NOTED. AFEBRILE, NO S/S OF DISTRESS NOTED. RIGHT FEMORAL HD CATHETER, NO BLEEDING AT SITE. CABALLERO CATHETER WITH NO URINE OUTPUT. ALL DUE MEDS GIVEN ORDERED. ALL SAFETY MEASURE PROVIDED. BED IN LOWEST POSITION, LOCKED. BED ALARM ARMED. REPORT GIVEN TO MORNING SHIFT NURSE,
--- NOTE | 2021-09-08 07:31 | NUR ---
RN OPENING NOTE PATIENT RECEIVED IN BED, RESTING, EYES CLOSED. PATIENT ON BIPAP 15/5, SET AT RATE 20 AND FIO2 30%, SATURATION 93% O2 ON BEDSIDE MONITOR. PRIVATE WIRE COILER AT BEDSIDE. CABALLERO CATHETER IN PLACE. LEFT UA MIDLINE IN PLACE AND RIGHT FEMORAL HD CATH IN PLACE. NG TUBE IN PLACE, NO FEEDING RUNNING AT THIS TIME PER ORDER DUE TO BIPAP IN PLACE. PER FAMILY AND DNP JOANIE, TO HOLD ALL NG TUBE MEDICATION AT THIS TIME. WARMING BLANKET OFF SINCE THIS AM DUE TO INCREASED TEMPERATURE, RECTAL PROBE IN PLACE SHOWING 99.0F ON BEDSIDE MONITOR. BED LOCKED AND IN LOWEST POSITION, CALL LIGHT WITHIN REACH.
--- NOTE | 2021-09-08 07:41 | NUR ---
RN NOTE PER REQUEST AND DNP JOANIE ORDER, TO HOLD ALL NG TUBE MEDICATION AT THIS TIME.
[2021-09-08 07:49] LABS: CALCIUM, SERUM 7.9 mg/dL (8.5-10.1); CARBON DIOXIDE 26 mmol/L (21-32); CHLORIDE 99 mmol/L (98-107); GLUCOSE 138 mg/dL (74-106); PHOSPHORUS 1.6 mg/dL (2.5-4.9); POTASSIUM 3.9 mmol/L (3.5-5.1); SODIUM SERUM 135 mmol/L (136-145); UREA NITROGEN, BLOOD 45 mg/dL (7-18)
[2021-09-08 07:53] LABS: BASOPHILS # (AUTO) 0.1 K/uL (0.0-0.2); BASOPHILS % (AUTO) 0.3 % (0.0-2.0); LYMPHOCYTES # (AUTO) 11.5 K/uL (0.8-4.8); LYMPHOCYTES % (AUTO) 25.2 % (20.0-44.0); MEAN CORPUSCULAR HGB CONC 32 g/dl (31.0-36.0); MEAN CORPUSCULAR VOLUME 86 fL (82-100); MONOCYTES # (AUTO) 2.7 K/uL (0.1-1.30); MONOCYTES % (AUTO) 5.9 % (2.0-12.0); NEUTROPHILS # (AUTO) 31.2 K/uL (1.8-8.9); NEUTROPHILS % (AUTO) 68.6 % (43.0-81.0); PLATELET COUNT (AUTO) 94 K/uL (150-450); RED BLOOD CELL COUNT(AUTO) 2.27 MIL/uL (4.0-5.2)
[2021-09-08 08:04] LABS: WHITE BLOOD COUNT (AUTO) 45.5 K/uL (4.3-11.0)
[2021-09-08 08:05] LABS: HEMATOCRIT 20 % (33-45); HEMOGLOBIN 6.3 g/dL (11.5-14.8)
--- NOTE | 2021-09-08 08:07 | NUR ---
RN NOTE CRITICAL LAB VALUE OF HEMOGLOBIN 6.3, HEMATOCRIT 20 AND WBC 45.[address] MIRANDA AND NICOLE NAIR. ORDERED 1 UNIT PRBC WITH HD TODAY.
[2021-09-08] MEDS: ASCORBIC ACID 500 MG TABLET GT SCH ×2 (08:13→10:20)
[2021-09-08] MEDS: DRONABINOL (2.5 MG) 2.5 MG CAPSULE PO SCH ×3 (08:13→16:51)
[2021-09-08] MEDS: VIT B CMPLX 3/FA/VIT C/BIOTIN 1 TAB TABLET PO SCH ×2 (08:13→10:20)
[2021-09-08] MEDS: AMIODARONE HCL 200 MG TABLET PO SCH ×2 (08:13→10:21)
[2021-09-08] MEDS: DEXAMETHASONE SOD PHOSPHATE 10 MG/ML VIAL IV SCH (08:13)
[2021-09-08] MEDS: CHLORHEXIDINE GLUCONATE 15 ML UDC MM SCH ×2 (08:13→21:18)
[2021-09-08] MEDS: PANTOPRAZOLE 40 MG/PACK PACK NG SCH ×2 (08:13→10:20)
[2021-09-08] MEDS: CHOLECALCIFEROL (VITAMIN D 3) 400 UNIT TABLET PO SCH ×2 (08:14→10:20)
[2021-09-08] MEDS: CALCIUM CARBONATE (1250) 500 MG TABLET PO SCH ×2 (08:14→16:51)
[2021-09-08] MEDS: Z GUARD REMEDY 4 OZ OINT TP SCH (08:14)
[2021-09-08] MEDS: TRELEGY ELLIPTA INH SCH ×2 (08:44→09:00)
[2021-09-08] MEDS: ACETYLCYSTEINE 10% SOLN 400 MG/4 ML VIAL NEB SCH ×3 (10:30→23:02)
[2021-09-08] MEDS: ALBUTEROL HALF STRENGTH 1.25 MG/3 ML VIAL.NEB NEB SCH ×3 (10:30→19:25)
--- NOTE | 2021-09-08 10:38 | NUR ---
RN NOTE PER NICOLE NAIR AT BEDSIDE, TO GIVE AM NG TUBE MEDICATION NOW. MEDICATION ADMINISTERED, NG TUBE FLUSHED.
[2021-09-08] MEDS: IPRATROPIUM NEB FS 0.5 MG/2.5 ML AMPUL.NEB NEB SCH ×4 (10:48→23:02)
[2021-09-08] MEDS: CEFEPIME 2 GM in IV D5W 100 ML IV SCH ×2 (11:04→16:48)
[2021-09-08] MEDS: IV NS 0.9% 250 ML IV PRN ×2 (11:04→16:51)
[2021-09-08 11:32] LABS: ABG BASE EXCESS -2.6 mmol/L; ABG OXYGEN SATURATION 94.8 % (92.0-98.5); ABG PH 7.289 (7.350-7.450); COHb 0.7 % (0.5-1.5); MetHb 0.2 % (0.0-1.5); O2Hb 93.9 % (94.0-97.0); SITE, ABG Right Radial; VENT MODE, BG ST 15/5 R20 30% +5
--- NOTE | 2021-09-08 11:38 | NUR ---
RN NOTE CARDIZEM 30MG THROUGH NG TUBE HELD DUE TO PT SCHEDULED FOR HD TODAY PER NICOLE NAIR.
--- NOTE | 2021-09-08 12:13 | NUR ---
RN NOTE HEPARIN HELD TODAY PER DNP JOANIE ORDERED DUE TO LOW HEMOGLOBIN AND HEMATOCRIT.
--- NOTE | 2021-09-08 12:14 | NUR ---
RN NOTE WILL HOLD IV ABX UNTIL AFTER HD IS COMPLETED.
[2021-09-08 12:23] LABS: BAND % (MANUAL) 3 % (0.0-5.0); LYMPHOCYTES % (MANUAL) 26 % (16-48); MONOCYTES % (MANUAL) 6 % (0-11.0); NEUTROPHILS % (MANUAL) 65 (42-76)
[2021-09-08 14:11] LABS: ABG BASE EXCESS -2.3 mmol/L; ABG OXYGEN SATURATION 93.5 % (92.0-98.5); ABG PCO2 40.7 mmHg (35.0-45.0); ABG PH 7.367 (7.350-7.450); ABG PO2 65.8 mmHg (75.0-100.0); AaDO2 100.3 mmHg; COHb 0.1 % (0.5-1.5); MetHb 0.2 % (0.0-1.5); O2Hb 93.2 % (94.0-97.0); VENT MODE, BG ST 20/5 R20 +5 30%
[2021-09-08] MEDS: ALBUMIN 25% 25 GM in PREMIX 1 EA IV PRN (14:58)
--- NOTE | 2021-09-08 15:00 | NUR ---
RN NOTE HD INITIATED, BLOOD TRANSFUSION STARTED, ALBUMIN GIVEN FOR BP SUPPORT. PT TOLERATING AT THIS TIME.
[2021-09-08] MEDS ORDERED: NEUTRA PHOS 1 POWD.PACKET NG ONE (16:30)
--- NOTE | 2021-09-08 17:00 | NUR ---
RN NOTE HD COMPLETED, 700CC REMOVED. BP STABLE.
[2021-09-08] MEDS: MICAFUNGIN SODIUM 100 MG in IV NS 0.9% 100 ML IV SCH (17:21)
--- NOTE | 2021-09-08 18:38 | NUR ---
RN CLOSING NOTE PATIENT REMAINS IN BED, RESTING, EYES CLOSED, OPEN EYES TO VOICE AND TOUCH. PATIENT ON BIPAP 20/5, SET AT RATE 20 AND FIO2 30%, SATURATION 95% O2 ON BEDSIDE MONITOR. PRIVATE EMPLOYMENT MANAGER AT BEDSIDE. CABALLERO CATHETER IN PLACE, NO OUTPUT THROUGHOUT SHIFT. LEFT UA MIDLINE IN PLACE, OCCLUDED, LEFT IN PLACE PER [facility] ORDER. RIGHT FEMORAL HD CATH IN PLACE. NG TUBE IN PLACE, NO FEEDING RUNNING AT THIS TIME PER ORDER DUE TO BIPAP IN PLACE. WARMING BLANKET ON ON MEDIUM HEAT SINCE THIS 1608 DUE TO INCREASED TEMPERATURE, RECTAL PROBE IN PLACE SHOWING 99.0F ON BEDSIDE MONITOR. BED LOCKED AND IN LOWEST POSITION, CALL LIGHT WITHIN REACH. Addendum: 09/08/21 at 1841 by LEIGH ANN PAZ RN CORRECTION: WARMING BLANKET ON ON MEDIUM HEAT SINCE 1608 DUE TO DECREASED TEMPERATURE, RECTAL PROB IN PLACE SHOWED 97.3, PT FEELING COLD.
[2021-09-08] MEDS: hydrALAZINE HCL IV 20 MG VIAL IV PRN (19:12)
--- NOTE | 2021-09-08 19:26 | NUR ---
TREATMENT NOT GIVEN BY RT PER COVID PROTOCOL AND HANDED TO BEDSIDE NURSE. RN IS AWARE. Addendum: 09/08/[address] RT Amended: Links added.
[2021-09-08] MEDS: ACETAMINOPHEN 650 MG/20.3 ML UDC GT PRN (20:12)
--- NOTE | 2021-09-08 20:30 | NUR ---
ICU/RN: NEW ORDER FOR NITRO PASTE 1IN TO CHEST Q12H AND STAT TROP. CARRIED OUT
--- NOTE | 2021-09-08 20:35 | NUR ---
DR. NAIR ORDERED STAT ABG BUT DECIDED TO HOLD OFF FOR NOW. RN NOTIFIED. Addendum: 09/08/21 at [address] RT Amended: Links added.
[2021-09-08] MEDS: NITROGLYCERIN 30 GM TUBE TP SCH (20:40)
[2021-09-08] MEDS ORDERED: MORPHINE SULFATE INJ 2 MG/ML DISP.SYRIN IV ONE (21:00)
[2021-09-08] MEDS: ATORVASTATIN 10 MG TABLET PO SCH (21:20)
[2021-09-08] MEDS ORDERED: MEROPENEM 500 MG VIAL IV ONE (21:23)
[2021-09-08] MEDS ORDERED: MEROPENEM 500 MG in IV NS 0.9% 50 ML IV SCH (21:30)
[2021-09-08] MEDS ORDERED: VANCOMYCIN 1 GM VIAL ONE (21:36)
--- NOTE | 2021-09-08 21:44 | NUR ---
MED NOTE: ALL MEDS ADMINISTERED UNDER VERIFIED DOSES.
[2021-09-08] MEDS ORDERED: VANCOMYCIN 1 GM in IV D5W 250ml IV ONE (22:00)
--- NOTE | 2021-09-08 23:03 | NUR ---
IN-LINE TREATMENTS NOT GIVEN BY RT PER COVID PROTOCOL AND GIVEN MEDICATIONS TO DR. VENCES RN NOTIFIED. Addendum: 09/08/21 at [address] RT Amended: Links added.
--- NOTE | 2021-09-08 23:40 | NUR ---
ICU/RN: STONECUTTER HAND FROM [facility] CALLED FOR PT UPDATE. NO BED AVAILABLE AT THIS TIME.
[2021-09-09] VITALS (56 sets, daily range): BP systolic 93–163; BP diastolic 40–97
[2021-09-09] MEDS: ALBUTEROL HALF STRENGTH 1.25 MG/3 ML VIAL.NEB NEB SCH ×4 (01:27→20:07)
--- NOTE | 2021-09-09 01:27 | NUR ---
IN-LINE TREATMENT NOT GIVEN BY RT PER COVID PROTOCOL AND GIVEN MEDICATION TO BEDSIDE NURSE. RN IS AWARE. Addendum: 09/09/21 at [address] RT Amended: Links added.
[2021-09-09] MEDS: IPRATROPIUM NEB FS 0.5 MG/2.5 ML AMPUL.NEB NEB SCH ×5 (03:28→20:07)
--- NOTE | 2021-09-09 03:28 | NUR ---
IN-LINE TREATMENT NOT GIVEN BY RT PER COVID PROTOCOL AND GIVEN MEDICATION TO BEDSIDE NURSE; RN IS AWARE. Addendum: 09/09/21 at [address] RT Amended: Links added.
[2021-09-09 03:56] LABS: BASOPHILS # (AUTO) 0.1 K/uL (0.0-0.2); BASOPHILS % (AUTO) 0.2 % (0.0-2.0); EOSINOPHILS % (AUTO) 0.1 % (0.0-6.0); HEMATOCRIT 23 % (33-45); HEMOGLOBIN 7.6 g/dL (11.5-14.8); LYMPHOCYTES % (AUTO) 24.4 % (20.0-44.0); MEAN CORPUSCULAR HGB CONC 33 g/dl (31.0-36.0); MEAN CORPUSCULAR VOLUME 87 fL (82-100); MONOCYTES # (AUTO) 2.5 K/uL (0.1-1.30); NEUTROPHILS # (AUTO) 28.5 K/uL (1.8-8.9); NEUTROPHILS % (AUTO) 69.3 % (43.0-81.0); PLATELET COUNT (AUTO) 111 K/uL (150-450); RED BLOOD CELL COUNT(AUTO) 2.64 MIL/uL (4.0-5.2)
[2021-09-09 04:02] LABS: WHITE BLOOD COUNT (AUTO) 41.1 K/uL (4.3-11.0)
[2021-09-09 04:06] LABS: CALCIUM, SERUM 7.4 mg/dL (8.5-10.1); CARBON DIOXIDE 29 mmol/L (21-32); CHLORIDE 96 mmol/L (98-107); CREATININE 2.1 mg/dL (0.6-1.3); GLUCOSE 140 mg/dL (74-106); MAGNESIUM 1.7 mg/dL (1.8-2.4); PHOSPHORUS 1.8 mg/dL (2.5-4.9); POTASSIUM 3.6 mmol/L (3.5-5.1); SODIUM SERUM 132 mmol/L (136-145); UREA NITROGEN, BLOOD 42 mg/dL (7-18)
[2021-09-09] MEDS: HEPARIN SODIUM, PORCINE 5000 UNITS/1 ML VIAL SQ SCH ×3 (04:25→21:06)
[2021-09-09 04:32] LABS: BAND % (MANUAL) 2 % (0.0-5.0); BASOPHILS % (MANUAL) 0 % (0.0-2.0); EOSINOPHILS % (MANUAL) 0 % (0-4); LYMPHOCYTES % (MANUAL) 29 % (16-48); MONOCYTES % (MANUAL) 8 % (0-11.0); NEUTROPHILS % (MANUAL) 61 (42-76)
--- NOTE | 2021-09-09 05:41 | NUR ---
PATIENT RECEIVED ON COVID ISOLATION WITH BIPAP 20/5, RR 20, 30% WITH ORONASAL MASK ON, TOLERATING WITH NO DISTRESS/SOB NOTED. AMBU BAG AT BEDSIDE. BIPAP ALARM AUDIBLE AND VISIBLE. BIPAP PLUGGED INTO RED OUTLET. Addendum: 09/09/21 at [address] RT Amended: Links added.
[2021-09-09] MEDS: NYSTATIN (PYXIS) 500,000 UNIT/5 ML ORAL.SUSP PO SCH ×4 (05:44→23:46)
[2021-09-09] MEDS: DILTIAZEM HCL 30 MG TABLET PO SCH ×4 (06:04→23:56)
[2021-09-09] MEDS: [UNRECOGNIZED DRUG - OTHER] NG SCH ×5 (07:00→21:00)
[2021-09-09] MEDS ORDERED: VANCOMYCIN POST DIALYSIS 500MG IV PRN ×2 (07:00)
[2021-09-09] MEDS: ACETYLCYSTEINE 10% SOLN 400 MG/4 ML VIAL NEB SCH ×2 (07:35→15:42)
--- NOTE | 2021-09-09 08:00 | NUR ---
RN NOTES RECEIVED PATIENT ON BIPAP O2-95%, HR-84. BP 119/48. PATIENT NPO, AWAKE,WAS REFUSED PAIN, PER DR ZENG CHANGE TO THE FACE MASK 6L. RT AWARE OF. NEEDS ATTENDED AND ANTICIPATED. WILL FOLLOW UP.
[2021-09-09] MEDS: TRELEGY ELLIPTA INH SCH (09:00)
[2021-09-09] MEDS ORDERED: POTASSIUM PHOSPHATE MM 15 MMOL in IV NS 0.9% 250 ML IV SCH (09:30)
[2021-09-09] MEDS: DEXAMETHASONE SOD PHOSPHATE 10 MG/ML VIAL IV SCH (10:12)
[2021-09-09] MEDS: MEROPENEM 500 MG in IV NS 0.9% 50 ML IV SCH ×2 (10:13→21:05)
[2021-09-09] MEDS: Magnesium 1GM/D5W 100ML PREMIX 100 ML IV SCH ×2 (10:14→12:27)
[2021-09-09] MEDS: Z GUARD REMEDY 4 OZ OINT TP SCH (10:18)
[2021-09-09] MEDS: NITROGLYCERIN 30 GM TUBE TP SCH ×2 (10:46→20:38)
[2021-09-09] MEDS: CHLORHEXIDINE GLUCONATE 15 ML UDC MM SCH ×2 (10:47→20:37)
[2021-09-09] MEDS: CALCIUM CARBONATE (1250) 500 MG TABLET PO SCH ×2 (10:47→17:08)
[2021-09-09] MEDS: CHOLECALCIFEROL (VITAMIN D 3) 400 UNIT TABLET PO SCH (10:47)
[2021-09-09] MEDS: ASCORBIC ACID 500 MG TABLET GT SCH (10:48)
[2021-09-09] MEDS: DRONABINOL (2.5 MG) 2.5 MG CAPSULE PO SCH ×2 (10:48→17:08)
[2021-09-09] MEDS: AMIODARONE HCL 200 MG TABLET PO SCH (10:51)
[2021-09-09] MEDS: VIT B CMPLX 3/FA/VIT C/BIOTIN 1 TAB TABLET PO SCH (10:51)
[2021-09-09] MEDS: PANTOPRAZOLE 40 MG/PACK PACK NG SCH (10:52)
--- NOTE | 2021-09-09 11:00 | NUR ---
RN NOTE S PATIENT O2-91% WITH FACE MASK 6L, BREATHING THROUGH THE MOUTH, PER HOSPITALIST JOANIE CHANGE TO THE BIPAP. RT AWARE OF.
[2021-09-09] MEDS: POTASSIUM PHOSPHATE MM 7.5 MMOL in IV NS 0.9% 100 ML IV SCH ×2 (11:09→12:43)
[2021-09-09] MEDS: MICAFUNGIN SODIUM 100 MG in IV NS 0.9% 100 ML IV SCH (12:39)
--- NOTE | 2021-09-09 13:53 | NUR ---
RN NOTES ADMINISTERED MORPHINE SULFATE 0.5 MG/ML IV PUSH PER MD ORDER BECAUSE OF BREATHING IS FAST. BP -142/57, P-75. R-20 WILL FOLLOW UP.
[2021-09-09] MEDS ORDERED: MORPHINE SULFATE INJ 2 MG/ML DISP.SYRIN IV ONE (14:00)
--- NOTE | 2021-09-09 15:30 | NUR ---
RN NOTES PATIENT GETTING HD AT THIS TIME. FAMILY NEXT TO THE BED.
[2021-09-09] MEDS ORDERED: VANCOMYCIN 1 GM in IV D5W 250ml IV ONE (16:00)
[2021-09-09] MEDS: ALBUMIN 25% 25 GM in PREMIX 1 EA IV PRN (16:20)
--- NOTE | 2021-09-09 18:42 | NUR ---
RN NOTES FINISHED HD AT THIS TIME, OUTPUT WAS 1.5 L. DUE MEDICATION ADMINISTERED, PATIENT ON FACE MASK 6L. ASSIST TURN AND REPOSTION Q 2 HR. FAMILY NEXT TO THE BED. ENDORSED ONCOMING NURSE FOLLOW PLAN OF CARE.
[2021-09-09] MEDS: ATORVASTATIN 10 MG TABLET PO SCH (21:04)
[2021-09-09 21:06] LABS: ABG BASE EXCESS -1.5 mmol/L; ABG OXYGEN SATURATION 94.6 % (92.0-98.5); ABG PCO2 43.7 mmHg (35.0-45.0); ABG PH 7.357 (7.350-7.450); ABG PO2 75.3 mmHg (75.0-100.0); AaDO2 123.5 mmHg; COHb 0.6 % (0.5-1.5); MetHb 0.1 % (0.0-1.5); O2Hb 93.9 % (94.0-97.0); SITE, ABG Left Radial; VENT MODE, BG Bipap 20/5 RR 20 35%
[2021-09-09] MEDS: NEPRO VAN 237 ML CAN NG PRN (23:47)
[2021-09-10] VITALS (60 sets, daily range): BP systolic 112–164; BP diastolic 36–115
[2021-09-10] MEDS: ALBUTEROL HALF STRENGTH 1.25 MG/3 ML VIAL.NEB NEB SCH ×4 (00:37→20:05)
[2021-09-10] MEDS: IPRATROPIUM NEB FS 0.5 MG/2.5 ML AMPUL.NEB NEB SCH ×7 (00:37→22:38)
[2021-09-10] MEDS: ACETYLCYSTEINE 10% SOLN 400 MG/4 ML VIAL NEB SCH ×4 (00:38→22:38)
--- NOTE | 2021-09-10 01:00 | NUR ---
ICU/RN: SWATCH PASTER FROM [facility] CALLED FOR PT UPDATE. NO BED AVAILABLE AT THIS TIME. WAS TOLD PT NEEDS TO BE TESTED AGAIN FOR COVID -19. WILL ENDORSE TO DR. NAIR AND ASHLEIGH FRANCO.
[2021-09-10] MEDS: NEPRO VAN 237 ML CAN NG PRN (04:00)
[2021-09-10 04:41] LABS: BASOPHILS # (AUTO) 0.1 K/uL (0.0-0.2); BASOPHILS % (AUTO) 0.2 % (0.0-2.0); HEMATOCRIT 21 % (33-45); LYMPHOCYTES # (AUTO) 8.9 K/uL (0.8-4.8); LYMPHOCYTES % (AUTO) 22.3 % (20.0-44.0); MEAN CORPUSCULAR HGB CONC 32 g/dl (31.0-36.0); MEAN CORPUSCULAR VOLUME 90 fL (82-100); MONOCYTES # (AUTO) 2.1 K/uL (0.1-1.30); MONOCYTES % (AUTO) 5.3 % (2.0-12.0); NEUTROPHILS # (AUTO) 28.8 K/uL (1.8-8.9); NEUTROPHILS % (AUTO) 72.2 % (43.0-81.0); PLATELET COUNT (AUTO) 130 K/uL (150-450); RED BLOOD CELL COUNT(AUTO) 2.33 MIL/uL (4.0-5.2)
[2021-09-10] MEDS: HEPARIN SODIUM, PORCINE 5000 UNITS/1 ML VIAL SQ SCH ×3 (05:00→21:05)
[2021-09-10 05:07] LABS: HEMOGLOBIN 6.7 g/dL (11.5-14.8); WHITE BLOOD COUNT (AUTO) 39.9 K/uL (4.3-11.0)
[2021-09-10 05:18] LABS: CALCIUM, SERUM 7.8 mg/dL (8.5-10.1); CARBON DIOXIDE 27 mmol/L (21-32); CHLORIDE 98 mmol/L (98-107); CREATININE 1.8 mg/dL (0.6-1.3); GLUCOSE 160 mg/dL (74-106); MAGNESIUM 1.9 mg/dL (1.8-2.4); PHOSPHORUS 2.5 mg/dL (2.5-4.9); POTASSIUM 3.8 mmol/L (3.5-5.1); SODIUM SERUM 133 mmol/L (136-145); UREA NITROGEN, BLOOD 38 mg/dL (7-18)
[2021-09-10 05:27] LABS: BAND % (MANUAL) 1 % (0.0-5.0); BASOPHILS % (MANUAL) 0 % (0.0-2.0); EOSINOPHILS % (MANUAL) 0 % (0-4); LYMPHOCYTES % (MANUAL) 25 % (16-48); MONOCYTES % (MANUAL) 8 % (0-11.0); NEUTROPHILS % (MANUAL) 66 (42-76)
[2021-09-10] MEDS: NYSTATIN (PYXIS) 500,000 UNIT/5 ML ORAL.SUSP PO SCH ×4 (06:00→23:58)
[2021-09-10] MEDS ORDERED: VANCOMYCIN POST DIALYSIS 500MG IV PRN ×2 (06:00)
[2021-09-10] MEDS: DILTIAZEM HCL 30 MG TABLET PO SCH ×4 (06:05→23:58)
--- NOTE | 2021-09-10 06:40 | NUR ---
ICU/RN: SPOKE TO DR. NAIR REGARDING PT H/H 6.09/21. NEW ORDER RECEIVED 1 UNIT PRBC WITH HEMODIALYSIS TODAY. HOLD HEPARIN FOR NOW.
--- NOTE | 2021-09-10 07:31 | NUR ---
RN OPENING NOTE PATIENT RECEIVED IN BED, RESTING. PATIENT ON BIPAP 20/5, RATE OF 20 AND FIO2 30% SAT 93% ON BEDSIDE MONITOR. PRIVATE PLASMA PROCESSING TECHNICIAN TATE DAVENPORT AT BEDSIDE. NGT IN PLACE. RIGHT FEMORAL HD CATH IN PLACE WITH PIGTAIL FOR ACCESS. LOW H&H THIS AM, PER REPORT FROM THEATER EDUCATION TEACHER NURSE ROSE NAIR NOTIFIED AND ONE UNIT PRBC ORDERED WITH SCHEDULE HD TODAY. BED LOCKED AND IN LOWEST POSITION, CALL LIGHT WITHIN REACH, 3 SIDE RAILS UP.
[2021-09-10] MEDS: CALCIUM CARBONATE (1250) 500 MG TABLET PO SCH ×2 (08:17→17:18)
[2021-09-10] MEDS: DEXAMETHASONE SOD PHOSPHATE 10 MG/ML VIAL IV SCH (08:17)
[2021-09-10] MEDS: PANTOPRAZOLE 40 MG/PACK PACK NG SCH (08:17)
[2021-09-10] MEDS: CHLORHEXIDINE GLUCONATE 15 ML UDC MM SCH ×2 (08:17→21:04)
[2021-09-10] MEDS: DRONABINOL (2.5 MG) 2.5 MG CAPSULE PO SCH ×2 (08:17→17:17)
[2021-09-10] MEDS: CHOLECALCIFEROL (VITAMIN D 3) 400 UNIT TABLET PO SCH (08:17)
[2021-09-10] MEDS: ASCORBIC ACID 500 MG TABLET GT SCH (08:17)
[2021-09-10] MEDS: VIT B CMPLX 3/FA/VIT C/BIOTIN 1 TAB TABLET PO SCH (08:17)
[2021-09-10] MEDS: AMIODARONE HCL 200 MG TABLET PO SCH ×2 (08:18→08:26)
[2021-09-10] MEDS: Z GUARD REMEDY 4 OZ OINT TP SCH (08:20)
[2021-09-10] MEDS: NITROGLYCERIN 30 GM TUBE TP SCH ×2 (08:26→21:05)
[2021-09-10] MEDS: [UNRECOGNIZED DRUG - OTHER] NG SCH ×5 (08:26→21:05)
[2021-09-10] MEDS: MEROPENEM 500 MG in IV NS 0.9% 50 ML IV SCH ×2 (09:00→21:05)
[2021-09-10] MEDS ORDERED: NITROGLYCERIN 30 GM TUBE TP SCH (09:00)
[2021-09-10] MEDS: TRELEGY ELLIPTA INH SCH (09:00)
--- NOTE | 2021-09-10 09:32 | NUR ---
RN NOTE WILL HOLD IV ABX UNTIL AFTER HD.
--- NOTE | 2021-09-10 10:24 | NUR ---
RN NOTE BLADDER SCAN DONE. 0CC IN BLADDER. NICOLE NAIR AT BEDSIDE NOTIFIED.
--- NOTE | 2021-09-10 11:40 | NUR ---
RT Breathing txs, and O2 being administered by NICOLE NAIR , RTs are asked to pull medications
[2021-09-10] MEDS: MICAFUNGIN SODIUM 100 MG in IV NS 0.9% 100 ML IV SCH (12:00)
[2021-09-10] MEDS ORDERED: CELLULOSE,OXIDIZED 1 PKT EACH MC ONE (15:00)
[2021-09-10] MEDS: IV NS 0.9% 250 ML IV PRN (15:47)
--- NOTE | 2021-09-10 17:50 | NUR ---
RN NOTE HD STARTED. BLOOD TRANSFUSION STARTED WITH HD. BP STABLE AT THIS TIME.
--- NOTE | 2021-09-10 19:52 | NUR ---
ICU/RN: HD COMPLETE 700ML REMOVED PER HD NURSE.
[2021-09-10] MEDS: ATORVASTATIN 10 MG TABLET PO SCH (21:06)
--- NOTE | 2021-09-10 23:16 | NUR ---
ICU/RN: TUNGSTEN REFINER FROM [facility] CALLED FOR PT UPDATE. NO BED AVAILABLE AT THIS TIME. WILL ENDORSE TO DR. NAIR AND ASHLEIGH FRANCO.
[2021-09-11] VITALS (26 sets, daily range): BP systolic 107–157; BP diastolic 42–76
--- NOTE | 2021-09-11 | NUR ---
ICU/RN: BLADDER SCANNED 30ML URINE WITHIN THE BLADDER. PT NOTED TO HAVE BOWL MOVEMENT. JACIEL CARE RENDERED WITH PTS PRIVATE NURSE. PT REPOSITIONED. RT CALLED TO ADJUST BIPAP MASK.
[2021-09-11] MEDS: ALBUTEROL HALF STRENGTH 1.25 MG/3 ML VIAL.NEB NEB SCH ×3 (01:32→13:30)
[2021-09-11] MEDS: [UNRECOGNIZED DRUG - OTHER] NG SCH ×4 (02:01→12:52)
[2021-09-11] MEDS: IPRATROPIUM NEB FS 0.5 MG/2.5 ML AMPUL.NEB NEB SCH ×3 (03:41→11:30)
[2021-09-11 04:28] LABS: BASOPHILS # (AUTO) 0.3 K/uL (0.0-0.2); BASOPHILS % (AUTO) 0.8 % (0.0-2.0); EOSINOPHILS % (AUTO) 0.1 % (0.0-6.0); HEMATOCRIT 27 % (33-45); HEMOGLOBIN 8.8 g/dL (11.5-14.8); LYMPHOCYTES # (AUTO) 6.9 K/uL (0.8-4.8); LYMPHOCYTES % (AUTO) 18.4 % (20.0-44.0); MEAN CORPUSCULAR HGB CONC 33 g/dl (31.0-36.0); MEAN CORPUSCULAR VOLUME 91 fL (82-100); MONOCYTES # (AUTO) 1.5 K/uL (0.1-1.30); MONOCYTES % (AUTO) 3.9 % (2.0-12.0); NEUTROPHILS # (AUTO) 28.8 K/uL (1.8-8.9); NEUTROPHILS % (AUTO) 76.8 % (43.0-81.0); PLATELET COUNT (AUTO) 119 K/uL (150-450); RED BLOOD CELL COUNT(AUTO) 2.97 MIL/uL (4.0-5.2)
[2021-09-11 04:36] LABS: WHITE BLOOD COUNT (AUTO) 37.5 K/uL (4.3-11.0)
[2021-09-11 04:53] LABS: CALCIUM, SERUM 7.5 mg/dL (8.5-10.1); CARBON DIOXIDE 26 mmol/L (21-32); CHLORIDE 101 mmol/L (98-107); CREATININE 1.8 mg/dL (0.6-1.3); GLUCOSE 204 mg/dL (74-106); PHOSPHORUS 2.2 mg/dL (2.5-4.9); POTASSIUM 3.7 mmol/L (3.5-5.1); SODIUM SERUM 137 mmol/L (136-145); UREA NITROGEN, BLOOD 36 mg/dL (7-18)
[2021-09-11 05:18] LABS: BAND % (MANUAL) 2 % (0.0-5.0); LYMPHOCYTES % (MANUAL) 20 % (16-48)
[2021-09-11 05:19] LABS: MONOCYTES % (MANUAL) 3 % (0-11.0); NEUTROPHILS % (MANUAL) 75 (42-76)
[2021-09-11] MEDS: DILTIAZEM HCL 30 MG TABLET PO SCH ×3 (05:55→12:53)
[2021-09-11] MEDS: NYSTATIN (PYXIS) 500,000 UNIT/5 ML ORAL.SUSP PO SCH ×2 (05:56→12:00)
[2021-09-11] MEDS: HEPARIN SODIUM, PORCINE 5000 UNITS/1 ML VIAL SQ SCH ×3 (05:56→12:55)
[2021-09-11] MEDS: ACETYLCYSTEINE 10% SOLN 400 MG/4 ML VIAL NEB SCH (07:35)
[2021-09-11] MEDS: DRONABINOL (2.5 MG) 2.5 MG CAPSULE PO SCH ×2 (09:00→09:52)
[2021-09-11] MEDS: TRELEGY ELLIPTA INH SCH (09:00)
--- NOTE | 2021-09-11 09:05 | NUR ---
BLADDER SCAN DONE= ZERO MLs READING; VERIFIED 3X. RESULTED ZERO.
[2021-09-11 09:48] LABS: ABG OXYGEN SATURATION 96.9 % (92.0-98.5); ABG PCO2 47.2 mmHg (35.0-45.0); ABG PH 7.311 (7.350-7.450); ABG PO2 90.3 mmHg (75.0-100.0); AaDO2 104.4 mmHg; COHb 0.3 % (0.5-1.5); MetHb 0.1 % (0.0-1.5); O2Hb 96.5 % (94.0-97.0); SITE, ABG Right Radial; VENT MODE, BG BIPAP 20/5 RR20 35%
[2021-09-11] MEDS: CHLORHEXIDINE GLUCONATE 15 ML UDC MM SCH (09:51)
[2021-09-11] MEDS: CHOLECALCIFEROL (VITAMIN D 3) 400 UNIT TABLET PO SCH (09:51)
[2021-09-11] MEDS: VIT B CMPLX 3/FA/VIT C/BIOTIN 1 TAB TABLET PO SCH (09:52)
[2021-09-11] MEDS: ASCORBIC ACID 500 MG TABLET GT SCH (09:52)
[2021-09-11] MEDS: PANTOPRAZOLE 40 MG/PACK PACK NG SCH (09:52)
[2021-09-11] MEDS: CALCIUM CARBONATE (1250) 500 MG TABLET PO SCH (09:52)
[2021-09-11] MEDS: AMIODARONE HCL 200 MG TABLET PO SCH (09:52)
[2021-09-11] MEDS: DEXAMETHASONE SOD PHOSPHATE 10 MG/ML VIAL IV SCH (09:53)
[2021-09-11] MEDS: MEROPENEM 500 MG in IV NS 0.9% 50 ML IV SCH (09:58)
[2021-09-11] MEDS: ACETAMINOPHEN 650 MG/20.3 ML UDC GT PRN (09:59)
[2021-09-11] MEDS: NITROGLYCERIN 30 GM TUBE TP SCH (09:59)
--- NOTE | 2021-09-11 10:02 | NUR ---
PRABHJOT AT THE BEDSIDE AND STATED" HOLD THE DUE DOSE OF MARINOL AND ELLIPTA.
[2021-09-11] MEDS: Z GUARD REMEDY 4 OZ OINT TP SCH (10:16)
--- NOTE | 2021-09-11 11:02 | NUR ---
REPORT GIVEN TO [facility] REGARDING TRANSFER ORDER TO PCU DEPT., ROOM 5124. BANDAR NAIR MADE AWARE.
--- NOTE | 2021-09-11 11:55 | NUR ---
PAT STATED "HOLD DUE MEDS NOW INCLUDING RENAL SUPPORT FORMULA, MYCAMINE, CARDIZEM, NYSTATIN, HEPARIN BECAUSE ANYTIME PATIENT WILL BE PICKED UP FOR TRANSFER." Addendum: 09/11/21 at 1245 by MELISSA MCCLAIN RN 12:42PM PER DR. NAIR STATED "OKAY TO GIVE DUE MEDS BECAUSE TRAILER DRIVER TIME FOR TRANSFER WILL BE MOVED TO 1430PM."
[2021-09-11] MEDS: MICAFUNGIN SODIUM 100 MG in IV NS 0.9% 100 ML IV SCH ×2 (12:00→12:52)
--- NOTE | 2021-09-11 12:30 | NUR ---
BLADDER SCAN done RESULTED ZERO MLs
--- NOTE | 2021-09-11 12:42 | NUR ---
hold due nystatin as per dr. julio
--- NOTE | 2021-09-11 14:10 | NUR ---
[facility] OF [facility] CALLED AND ETA NOW MOVED FROM 14:30PM TO 1520PM, BANDAR NAIR MADE AWARE AND N.P. STATED "THANK YOU."
--- NOTE | 2021-09-11 16:05 | NUR ---
patient was picked up by the ambulance transportees at this time in stable condition; no acute distress noted at this time. transferred pt. per protocol. private caregiver and CLINICAL DATA MANAGEMENT DIRECTOR Kimi present during transfer.
== END 2021-09-11 16:15 | disposition short-term general hospital (02) | DRG 871 ==
LOC: ER 11:07 → ICU 14:57 → TELE-TD 09-05 10:56 → ICU 09-07 21:26
PROVIDERS: ADMIT Nurse Practitioner Acute Care; ATTEND Internal Medicine
PROC: 5A1D70Z Performance of Urinary Filtration, Intermittent, Less than 6 Hours Per Day (ICD-10-PCS; principal; 2021-08-31)
PROC: 0W993ZZ Drainage of Right Pleural Cavity, Percutaneous Approach (ICD-10-PCS; 2021-08-31)
PROC: 06HY33Z Insertion of Infusion Device into Lower Vein, Percutaneous Approach (ICD-10-PCS; 2021-08-31)
PROC: 30233N1 Transfusion of Nonautologous Red Blood Cells into Peripheral Vein, Percutaneous Approach (ICD-10-PCS; 2021-09-02)
PROC: 05HC33Z Insertion of Infusion Device into Left Basilic Vein, Percutaneous Approach (ICD-10-PCS; 2021-09-03)
DX: A41.89 Other specified sepsis (principal); J12.82 Pneumonia due to coronavirus disease 2019; U07.1 COVID-19; J96.21 Acute and chronic respiratory failure with hypoxia; J15.6 Pneumonia due to other Gram-negative bacteria; N17.0 Acute kidney failure with tubular necrosis; J96.22 Acute and chronic respiratory failure with hypercapnia; J15.9 Unspecified bacterial pneumonia; B37.49 Other urogenital candidiasis; E87.2 Acidosis; E87.1 Hypo-osmolality and hyponatremia; C7A.8 Other malignant neuroendocrine tumors; I13.0 Hypertensive heart and chronic kidney disease with heart failure and stage 1 through stage 4 chronic kidney disease, or unspecified chronic kidney disease; I50.32 Chronic diastolic (congestive) heart failure; J90 Pleural effusion, not elsewhere classified; N18.4 Chronic kidney disease, stage 4 (severe); J44.1 Chronic obstructive pulmonary disease with (acute) exacerbation; J98.11 Atelectasis; J44.0 Chronic obstructive pulmonary disease with (acute) lower respiratory infection; C78.7 Secondary malignant neoplasm of liver and intrahepatic bile duct; C79.72 Secondary malignant neoplasm of left adrenal gland; I31.3 Pericardial effusion (noninflammatory); G93.40 Encephalopathy, unspecified; I82.621 Acute embolism and thrombosis of deep veins of right upper extremity; I82.A11 Acute embolism and thrombosis of right axillary vein; C83.00 Small cell B-cell lymphoma, unspecified site; T17.990A Other foreign object in respiratory tract, part unspecified in causing asphyxiation, initial encounter; I48.91 Unspecified atrial fibrillation; E87.5 Hyperkalemia; M10.9 Gout, unspecified; Z96.649 Presence of unspecified artificial hip joint; Z99.2 Dependence on renal dialysis; Z87.440 Personal history of urinary (tract) infections; Z87.891 Personal history of nicotine dependence; Z88.2 Allergy status to sulfonamides; Z88.8 Allergy status to other drugs, medicaments and biological substances; Z79.51 Long term (current) use of inhaled steroids; Z79.899 Other long term (current) drug therapy; Z79.82 Long term (current) use of aspirin; Z79.890 Hormone replacement therapy; R62.7 Adult failure to thrive; I08.0 Rheumatic disorders of both mitral and aortic valves; X58.XXXA Exposure to other specified factors, initial encounter; Y92.9 Unspecified place or not applicable; M89.9 Disorder of bone, unspecified; Z86.73 Personal history of transient ischemic attack (TIA), and cerebral infarction without residual deficits; Z86.718 Personal history of other venous thrombosis and embolism; K76.1 Chronic passive congestion of liver; K12.30 Oral mucositis (ulcerative), unspecified; L85.3 Xerosis cutis; I70.0 Atherosclerosis of aorta; N26.1 Atrophy of kidney (terminal); D28.7 Benign neoplasm of other specified female genital organs; Z74.09 Other reduced mobility; Z86.69 Personal history of other diseases of the nervous system and sense organs; E31.21 Multiple endocrine neoplasia [MEN] type I; E27.8 Other specified disorders of adrenal gland; D75.839 Thrombocytosis, unspecified; D63.8 Anemia in other chronic diseases classified elsewhere; D69.6 Thrombocytopenia, unspecified; S40.021A Contusion of right upper arm, initial encounter
CPT/HCPCS: 36410; 36415; 36600; 71045-TC; 71250-TC; 74018; 76770-TC; 80048-TC; 80076-TC; 80202-TC; 82607-TC; 82728-TC; 82784; 82803-TC; 83540-TC; 83615-TC; 83735-TC; 83880; 84100-TC; 84155-TC; 84439-TC; 84443-TC; 84484-TC; 84550-TC; 85025-TC; 85027-TC; 85378-TC; 85396; 85610-TC; 85730-TC; 86140-TC; 86316; 86704; 86705; 86706; 86803; 86850-TC; 87040-TC; 87070-TC; 87081-TC; 87340; 90935-TC; 92526; 92611-TC; 93970-TC; 93971-TC; 94660; 94760-TC; 94799-TC; 99082-TC; A4216; A4217; A4624; A6253; A6403; C1750; C9113; G0378; J0360; J0692; J1100; J1644; J2185; J2248; J2270; J2930; J3370; J3475; J3480; J3490; J7030; J7040; J7042; J7050; J7060; P9016; P9047; Q0167